=== PATIENT | female | born 1950 | race Caucasian/White ===

== ENCOUNTER 2017-01-25 06:45 | Emergency (ER) | payer BC ==
[~2017-01-25] VITALS: Ht 157.5 cm; Wt 74.4 kg
[~2017-01-25 06:45] MED LIST: /ADVA50050 INH; /RISE35TA PO; AMIT25TA2 PO; CLAR5CHW PO; CLIN150C OR; DELTASONE PO; FLEXERIL PO; LASI40TA PO; MICA80TA PO; NORCO PO; NOVOLOG100 MG/ML SQ; PRED1TA PO; PRIL20CA OR; SING10TA31 PO; SLOWTAB OR; VICO5TAB PO; VITAMIN D50000 UNT PO; cellcept PO; levemir SQ; potassium PO
[2017-01-25] MEDS ORDERED: LISI10TA4 PO (07:15)
[2017-01-25] MEDS ORDERED: POTA10CA PO (07:15)
[2017-01-25] MEDS ORDERED: INSUDET SC (07:15)
[2017-01-25] MEDS ORDERED: CELL500T PO (07:15)
[2017-01-25] MEDS ORDERED: diphenhydrAMINE INJ 50MG/ML VIAL (J1200) IV ONE (08:00)
[2017-01-25 08:36] VITALS: BP 135/61
== END 2017-01-25 10:40 | disposition home or self-care (01) ==
LOC: M ED 08:01
DX: T78.3XXA Angioneurotic edema, initial encounter (principal)
CPT/HCPCS: 93041; 96374; 99284; J1200

== ENCOUNTER → 2017-02-17 | Outpatient (CLI) | payer BC ==
[~2017-02-17] MED LIST changes: +CELL500T PO; +INSUDET SC; +LISI10TA4 PO; +POTA10CA PO
--- NOTE | 2017-02-17 18:40 | REP ---
CHEST, TWO VIEWS: Two views of the chest are performed and compared to prior study of 11/04/2013. There is interstitial fibrosis bilaterally which appears essentially stable. No definite superimposed acute infiltrate is seen. The heart is normal in size. There is some calcification of the thoracic aorta. The mediastinal silhouette is unchanged. Metallic prosthesis is noted in the proximal humerus bilaterally. There are mild degenerative changes of the spine. IMPRESSION: Chronic fibrotic change without evidence of acute infiltrate. Signed by Dennis Cantu MD 02/17/2017 07:17 P
== END ==
LOC: M WUC 17:49
PROVIDERS: ATTEND Physician Assistant
DX: R50.9 Fever, unspecified (principal); J44.9 Chronic obstructive pulmonary disease, unspecified

== ENCOUNTER 2017-04-29 01:33 | Emergency (ER) | payer BC ==
[~2017-04-29] VITALS: Ht 157.5 cm; Wt 68.2 kg
[2017-04-29 01:51] VITALS: BP 134/60
[2017-04-29] MEDS ORDERED: NORCO, ANEXSIA 5/325MG TABLET (HYDROcodone/ACETAMINOPHEN) PO ONE ×2 (02:15→04:00)
--- NOTE | 2017-04-29 08:56 | REP ---
LUMBAR SPINE, THREE VIEWS: HISTORY: Trauma. There is no acute fracture or subluxation. The lumbar intervertebral discs are decreased in height consistent with disc degeneration. Osteophytes are present on L3-5. There is minimal scoliosis convex to the left. Calcifications are present in the right upper quadrant. This may represent cholelithiasis. IMPRESSION: Degenerative change as described above. Signed by Zachary Villegas MD 04/29/2017 09:30 A
--- NOTE | 2017-04-29 08:57 | REP ---
LEFT ELBOW, FOUR VIEWS: HISTORY: Trauma. There is no acute fracture or dislocation. There is narrowing of the joint space. Osteophytes are present on the ulna and distal humerus. IMPRESSION: There is no acute fracture or dislocation. Signed by Zachary Villegas MD 04/29/2017 09:31 A
== END 2017-04-29 04:47 | disposition home or self-care (01) ==
LOC: EDBD 01:33 → M ED 01:33
DX: S00.93XA Contusion of unspecified part of head, initial encounter (principal); S50.02XA Contusion of left elbow, initial encounter; S39.012A Strain of muscle, fascia and tendon of lower back, initial encounter; Z87.891 Personal history of nicotine dependence; W01.198A Fall on same level from slipping, tripping and stumbling with subsequent striking against other object, initial encounter; Y92.099 Unspecified place in other non-institutional residence as the place of occurrence of the external cause; Y93.01 Activity, walking, marching and hiking; Y99.9 Unspecified external cause status

== ENCOUNTER 2017-06-01 22:19 | Inpatient (IN) | payer BC ==
[~2017-06-01] VITALS: Ht 157.5 cm; Wt 67.9 kg
[2017-06-01] MEDS: AZITHROMYCIN INJ 500 MG, VIAL MATE ADAPTER 1 EACH in D5W 250 ML IV ONE ×2 (00:15→23:15)
[~2017-06-01 22:19] MED LIST changes: +MYCOPHENOLATE MOFETIL 250 MG CAP (J7517) PO SCH
[2017-06-01] MEDS ORDERED: NS 1,000 ML IV ONE (22:45)
[2017-06-01] MEDS ORDERED: ACETAMINOPHEN 325 MG TAB PO ONE (23:00)
[2017-06-01 23:02] LABS: BASO % 0.1 % (0.0-1.0); EOS # 0.1 K/mm3 (0.0-0.50); EOS % 0.3 % (0.0-3.0); LARGE UNSTAINED CELL # 0.1 K/mm3 (0.0-0.4); LARGE UNSTAINED CELL % 0.3 % (0.0-4.0); LYMPH # 0.3 K/mm3 (1.5-4.5); LYMPH % 1.5 % (24.0-44.0); MEAN CORPUSCULAR HEMOGLOBIN 23.1 pg (27.0-33.0); MEAN CORPUSCULAR HGB CONC 29.5 g/dl (32.0-36.5); MEAN CORPUSCULAR VOLUME 78.3 fl (80.0-96.0); MONO # 0.3 K/mm3 (0.0-0.8); MONO % 1.7 % (0.0-5.0); NEUTROPHILS # 18.7 K/mm3 (1.8-7.7); NEUTROPHILS % 96.1 % (36.0-66.0); PLATELET COUNT, AUTOMATED 481 k/mm3 (150-450); RED CELL DISTRIBUTION WIDTH 15.8 % (11.5-14.5); WHITE BLOOD COUNT 19.4 K/mm3 (4.0-10.0)
[2017-06-01] MEDS ORDERED: cefTRIAXone SOD 1 GM in D5W MINI-BAG PLUS 50 ML IV ONE (23:15)
[2017-06-01] MEDS ORDERED: IPRATROPIUM 0.5MG/ALBUTEROL 2.5MG INH SOL UD 3ML (DUONEB)(J7620) NEB ONE (23:30)
[2017-06-01 23:35] LABS: ALBUMIN 2.5 GM/DL (3.2-5.2); ALBUMIN/GLOBULIN RATIO 0.61 (1.00-1.93); ALKALINE PHOSPHATASE 184 U/L (45-117); ALT/SGPT 13 U/L (12-78); ANION GAP 9 MEQ/L (8-16); AST/SGOT 16 U/L (15-37); BILIRUBIN,DIRECT 0.2 MG/DL (0.0-0.2); BILIRUBIN,TOTAL 0.4 MG/DL (0.2-1.0); BLOOD UREA NITROGEN 10 MG/DL (7-18); CALCIUM LEVEL 8.3 MG/DL (8.8-10.2); CARBON DIOXIDE LEVEL 27 MEQ/L (21-32); CHLORIDE LEVEL 96 MEQ/L (98-107); CREATININE FOR GFR 0.55 MG/DL (0.55-1.02); GLOMERULAR FILTRATION RATE > 60.0 (>45); GLUCOSE, FASTING 271 MG/DL (80-110); POTASSIUM SERUM 4.7 MEQ/L (3.5-5.1); SODIUM LEVEL 132 MEQ/L (136-145); TOTAL PROTEIN 6.6 GM/DL (6.4-8.2)
[2017-06-02] MEDS ORDERED: NORC1TAB4 PO (00:11)
[2017-06-02] MEDS ORDERED: MAGN250T9 PO (00:11)
[2017-06-02] MEDS ORDERED: INSUH10VL SC ×2 (00:11)
[2017-06-02] MEDS ORDERED: ALBU17IN INH (00:11)
[2017-06-02] MEDS ORDERED: VITA-110 PO (00:11)
[2017-06-02] MEDS ORDERED: CYCL10TA PO (00:11)
[2017-06-02] MEDS ORDERED: FURO40TA2 PO (00:11)
[2017-06-02] MEDS ORDERED: AMIT10TA PO (00:11)
--- NOTE | 2017-06-02 00:30 | REPUSA ---
CLINICAL HISTORY: Confusion. TECHNIQUE: Multiple axial brain CT scan sections were obtained from base to vertex without contrast a dministration. COMMENTS: The study shows normal configuration of sella turcica. There are no intra or extra-axial collections. There is no mass effect or midline shift. There is no evidence of hematoma formation. No hydrocephal us is present. No abnormal calcifications are noted. No significant abnormalities are seen either in the posterior fossa or supratentorial compartment. The sinuses and mastoid air cells are patent. IMPRESSION: No change from the prior exam performed on 04/29/2017. No evidence of acute intracranial pathology. Thank you for your kind referral of this patient.
[2017-06-02] MEDS ORDERED: GLUCAGON FOR INJ 1 MG VIAL (J1610) SC PRN (01:30)
[2017-06-02] MEDS ORDERED: DEXTROSE 50% 50 ML SYRINGE IV PRN (01:30)
[2017-06-02] MEDS ORDERED: GLUCOSE 4 GM CHEW TABLET PO PRN (01:30)
[2017-06-02] MEDS ORDERED: ACETAMINOPHEN TAB 650MG DOSE (2X325MG) PO PRN (01:30)
[2017-06-02] MEDS ORDERED: ALBUTEROL SULFATE 2.5 MG/0.5 ML INH NEB SOLN NEB PRN (01:30)
[2017-06-02] MEDS ORDERED: PERCOCET 5MG/325MG TAB PO PRN (01:30)
[2017-06-02] MEDS ORDERED: ONDANSETRON 4MG/2ML VIAL (J2405) IV PRN (01:30)
[2017-06-02] MEDS ORDERED: ISOVUE-370 76% 100ML VIAL (Q9967) As Ordered ONE (01:48)
[2017-06-02 01:53] LABS: ERYTHROCYTE SEDIMENTATION RATE 90 mm/hr (0-30)
--- NOTE | 2017-06-02 01:59 | PHACANCOPD ---
PHARMACY VANCOMYCIN DOSING Pt Demographics Demographics Patient Age:67 , Weight:67.000 , Gender: female Adjusted Body Weight Date: 06/02/17, Adjusted Body Weight: Kg Events Past 24 Hours Events Past 24 Hours: NO: Dialysis, Diuretic Therapy, Change in CrCl, Fever, Elevation in WBC, Pending Diagnostics, Pending Procedures, Other Vancomycin Vancomycin Target Ranges: 15-20 mcg/ml Vancomycin Load Y/N: Yes Load Dose Date Time Vancomycin Load Dose: 1500MG Date: 06-02 Time: 0300 Vancomycin Dose Date: 06/02/17. Current Vancomycin Dose: [1000MG Q8H] Intermittent Dosing?: No Labs Labs Item Value Date Time White Blood Count 19.4 K/mm3 H 06/01/172246 Creatinine 0.55 MG/DL 06/01/172246 Blood Urea Nitrogen 10 MG/DL 06/01/172246 Vital Signs Label Value Date Time Patient Temperature 100.3 degrees F 06/02/17 0004 Temperature Source Oral 06/02/17 0004 Micro Microbiology 06/01/17 Blood Culture, Received Pending 06/01/17 Blood Culture, Received Pending 06/01/17 Urine Culture, Received Pending Creatinine Clearance Date:06/02/17. Creatinine Clearance: [70]. Pending Labs Trough 06-02 @1900 Assessment and Plan Maintaining Current Dose?: Yes Reason for dose change: No Dose Change Pharmacist Note Pharmacist Note Date: 06/02/17. Pharmacist note:Dosed at 1000mg q8h with a trough ordered for 09 @1900. Will continue to monitor and amke adjustments as needed. RUBÉN [facility] Jun 02, 2017 01:59
[2017-06-02] MEDS ORDERED: VANCOMYCIN HCL 500 MG in D5W MINI-BAG PLUS 100 ML IV ONE (02:00)
[2017-06-02] MEDS: NS 1,000 ML IV SCH ×2 (02:30→16:23)
[2017-06-02] MEDS: HumaLOG INSULIN (NovoLOG) PER UNIT SC SCH ×5 (02:31→21:00)
[2017-06-02] MEDS: LEVEMIR (INSULIN DETEMIR) 1 UNITS/0.01ML SC SCH ×2 (02:31→21:00)
--- NOTE | 2017-06-02 02:40 | REPUSA ---
CLINICAL HISTORY: Fever. TECHNIQUE: Multiple axial CT images were obtained through the thorax with IV contrast material. COMMENTS: Bilateral pleural thickening and minimal effusions. Moderately enlarged axillary lymph nodes with the largest measuring 1.4 cm. Moderately large mediastinal and hilar lymph nodes the largest measuring 3.5 cm. Calcifications of the metallic valve. There is bilateral peribronchial interstitial thickening suggestive of bronchitis. Groundglass densities of the lingula. Mild hepatomegaly. Mild prostatomegaly. There is no evidence of pleural or parenchymal mass. The heart and great vessels are within normal limits. The bony structures are free of lytic or blastic lesions. IMPRESSION: Minimal pleural effusion/thickening. Basilar calcified pleural plaques. Bronchitis. Comment densities in the lingula. Findings are suspicious for an infectious/inflammatory pathology. Diffusely enlarged axillary, mediastinal and hilar lymph nodes. Thank you for your kind referral of this patient.
--- NOTE | 2017-06-02 02:40 | REPUSA ---
CLINICAL HISTORY: Back pain. TECHNIQUE: Multiple axial images were obtained through the L1-L2, L2-L3, L3-L4, L4-L5 and L5-S1 inter spaces. Images were also reconstructed in coronal and sagittal planes. COMMENTS: There is no fracture visualized. The paraspinal soft tissues are unremarkable. There are no lytic or blastic lesions. Straightening of lumbar lordosis is seen, suggesting muscular spasm. There is evidence of multilevel disk disease, demonstrated by osteophytosis ad endplate sclerosis. Evaluation of individual levels reveals the following: At L5-S1, L3-L4, L2-L3, L1-L2 mild diffuse disc bulge. The spinal canal is not narrowed. Mild bilater al neural foramina narrowing. At L4-L5, moderate diffuse disc bulge and posterior osteophyte formation. Facet joint arthropathy and ligamenta flava hypertrophy. Moderate concentric narrowing of the spinal canal. Moderate bilateral n eural foramina narrowing. Mild chronic compression deformities of L2 and L1 superior endplates. IMPRESSION: Spondylosis. Chronic compression deformities of the superior endplates involving L1 and L2. Multilevel degenerative disc disease and Thank you for your kind referral of this patient.
[2017-06-02] MEDS: AMITRIPTYLINE 10 MG TAB PO SCH ×2 (02:51→21:10)
--- NOTE | 2017-06-02 03:12 | HPE ---
DATE OF ADMISSION: 06/02/2017 PRIMARY CARE PROVIDER: Adelina Martin. HISTORY OF PRESENT ILLNESS: This patient is a 67-year-old female with a past medical history significant for rheumatoid arthritis, insulin-dependent diabetes , chronic obstructive pulmonary disease (COPD), gastroesophageal reflux disease (GERD), osteoporosis, who presented to [facility] on 06/01/2017 after an episode of altered mental status changes. Yesterday around 9 p.m. patient's daughter found the patient jail off the bed and patient noted to have urinary incontinence. Patient was noted to have slurred speech with confusion. Patient's gait was also very unsteady. Patient's confusion resolved within 20 minutes. Then patient was brought to [facility] by ambulance and per the family member patient also noted to have uncontrolled extremity shakings and facial twitching, which also resolved spontaneously in a few minutes. Other significant history includes fever and shivering chills for the past 4 days, increased cough, increased yellowish sputum production. Per patient, the confusion occurred before and on 05/29 patient's daughter found the patient lying on the floor with mental status change. Patient's mentation started to recover in 30 minutes. Patient has a history of fall on 04/28/2017. Since then patient has been complaining about persistent pain in the lumbar region. Patient has a history of significant rheumatoid arthritis of her bilateral fingers and left toe and bilateral knees and bilateral hips and had a surgical repair due to severe rheumatoid arthritis. Patient has been taking CellCept. ALLERGIES: 1. SULFA (hives). 2. ASPIRIN (hives). 3. PENICILLIN (hives). 4. NONSTEROIDAL ANTIINFLAMMATORY DRUGS (NSAIDS) (hives). PAST MEDICAL HISTORY: 1. Rheumatoid arthritis. 2. COPD. 3. Osteoporosis. 4. Diabetes. 5. Gastroesophageal reflux disease. PAST SURGICAL HISTORY: 1. Finger replacement of all fingers. 2. Left foot reconstructions. 3. Bilateral shoulder replacements. 4. Bilateral hip replacements. 5. Bilateral knee replacements. 6. Carpal tunnel repair. 7. Tubal ligation. SOCIAL HISTORY: Patient does not smoke, but patient exposed to secondhand smoking for several decades. Denied alcohol use. Denied any recreational drug use. Patient is FULL CODE. HOME MEDICATIONS: - [place] one tablet by mouth three times a day as needed - Ventolin two puff inhalation every 4 hours as needed - NovoLog per sliding scale - Levemir 78 units subcutaneously nightly - magnesium oxide 250 mg by mouth daily - amitriptyline 10 mg by mouth nightly - vitamin D 400 units by mouth daily - cyclobenzaprine 10 mg by mouth three times a day as needed for muscle spasms - Lasix 40 mg by mouth daily - CellCept 1000 mg by mouth twice a day - potassium chloride 10 mEq by mouth daily REVIEW OF SYSTEMS: GENERAL: Positive fever and chills for the past 4 days. HEENT: Denies any vision changes. No auditory changes. CARDIOVASCULAR: No chest pain. No palpitations. RESPIRATORY: Complained about increased cough with yellow sputum, which is not normal for her. Patient does have a baseline of COPD. GASTROINTESTINAL: No nausea. No vomiting. No abdominal pain. No diarrhea. GENITOURINARY: Patient had an episode of urinary incontinence and was found at home with confusion. NEUROLOGICAL: No numbness. No tingling. MUSCULOSKELETAL: Persistent lumbar spine pain occurring after the fall since 04/28/2017. RHEUMATOLOGIC: Patient has a history of severe rheumatoid arthritis. Multiple surgical repairs were performed. The patient had all her finger digits, left foot, bilateral shoulders, bilateral hips, bilateral knees replacement. OBJECTIVE: VITAL SIGNS: Temperature 100.3, pulse 108, respirations 20, blood pressure 126/54, pulse oximetry is 97% in room air. GENERAL: Fatigued. Alert, awake and oriented times three. No acute distress. HEENT: Normocephalic, atraumatic. Extraocular motor grossly intact. CARDIOVASCULAR: Tachycardic, positive S1, S2. LUNGS: Positive crackles heard at the bilateral lung bases, but I cannot appreciate any significant wheezes. ABDOMEN: Soft, nontender, nondistended, bowel sounds present. EXTREMITIES: No edema. No sign of cyanosis. Patient does have shortened digits of the bilateral hands. There is also a surgical scar of the knee and the left foot. LABORATORY DATA: WBC 19.4, hemoglobin 9.1, hematocrit 30.7, platelet count is 481. Sodium is 132, potassium 4.7, chloride 96, carbon dioxide is 27, BUN 10, creatinine 0.55, GFR greater than 60, fasting glucose 271, lactic acid is 1.1, calcium 8.3, total bilirubin 0.4, direct bilirubin 0.2, AST 16, ALT 13, alkaline phosphatase 184, total protein 6.6, albumin 2.5. TSH is 1.06. Urinalysis is negative. Blood culture is pending times two. Urine culture is pending. IMAGING STUDIES: CT of the head without contrast shows no changes from previous exam. No evidence of acute intracranial pathology. ASSESSMENT AND PLAN: 1. Sepsis. Patient has a fever and patient has a heart rate greater than 100. Patient also has a white count of 19. Patient also has altered mental status change. Patient will be started on broad spectrum antibiotic of vancomycin and cefepime. Patient does have a drug allergy to penicillin and sulfa and quinolone. Patient will be started on intravenous (IV) hydration. At this moment, patient's blood pressure maintained in the satisfactory range. Urinalysis (UA) is negative. Follow with blood cultures, urine cultures. Will also follow with a CT of the chest. Patient has been taking CellCept, which may cause immunosuppression for the patient. 2. Rheumatoid arthritis. Patient has undergone multiple bone reconstructions and repair. Per the patient, patient is not tolerable to nonsteroidal antiinflammatory drugs (NSAIDs). Patient is on CellCept. Due to current sepsis , CellCept will be on hold temporarily. 3. Altered mental status change. Possibly due to patient's current sepsis. Will also follow with an EKG. CT of the head is negative. 4. Insulin-dependent diabetes. Patient will be on Levemir covering with sliding scale. Patient will be on consistent carbohydrate diet. 5. History of osteoporosis. 6. Chronic obstructive pulmonary disease (COPD). Currently does not have an exacerbation. Patient will have a breathing treatment as needed. 7. Gastroesophageal reflux disease. On Protonix. 8. Deep venous thrombosis (DVT) prophylaxis. The patient is on heparin. MTDD
[2017-06-02 03:42] VITALS: BP 121/56
[2017-06-02] MEDS: VANCOMYCIN HCL 1,000 MG, VIAL MATE ADAPTER 1 EACH in D5W 250 ML IV SCH ×3 (03:59→21:10)
[2017-06-02] MEDS: CEFEPIME HCL 1 GM in D5W MINI-BAG PLUS 50 ML IV SCH ×2 (05:00→16:22)
[2017-06-02] MEDS: HEPARIN SOD (PORCINE) 5000 UNITS/ML VIAL SC SCH ×3 (05:00→21:10)
--- NOTE | 2017-06-02 07:45 | ECGEPIP ---
Stationary ECG Study [facility] - ED Test Date: 2017-06-01 Pat Name: CYRIL PATRICK Department: Room: [place] [address] Gender: F Spool Carrier: leela : 1950 Requested By: TANISHA STONE Order Number: [id number] Reading MD: Whit Lema Measurements Intervals [place] Rate: 113 P: 34 IA: 163 QRS: -8 QRSD: 88 T: 66 QT: 299 QTc: 410 Interpretive Statements SINUS TACHYCARDIA MINIMAL VOLTAGE CRITERIA FOR LVH, CONSIDER NORMAL VARIANT NONSPECIFIC T-WAVE ABNORMALITY ABNORMAL RHYTHM ECG NO PRIOR FOR COMPARIOSN Electronically Signed On 06-02-2017 7:44:51 EDT by Whit Lema
--- NOTE | 2017-06-02 07:58 | REP ---
Clinical: S I R S. Comparison: 02/17/2017. Findings: Mediastinum and cardiac silhouette are within normal limits. Prominent appearance of the bilateral raegan cannot exclude underlying adenopathy. Lung mitchell demonstrate chronic interstitial changes without focal consolidation, effusion, or pneumothorax. Skeletal structures are intact. Impression: Chronic interstitial changes. Cannot exclude hilar adenopathy. Signed by Joseph Ibarra MD 06/02/2017 07:49 A
[2017-06-02 08:00] VITALS: BP 125/60
[2017-06-02 08:10] LABS: BASO % 0.1 % (0.0-1.0); LARGE UNSTAINED CELL # 0.1 K/mm3 (0.0-0.4); LARGE UNSTAINED CELL % 0.7 % (0.0-4.0); LYMPH # 0.7 K/mm3 (1.5-4.5); LYMPH % 5.6 % (24.0-44.0); MEAN CORPUSCULAR HEMOGLOBIN 23.8 pg (27.0-33.0); MEAN CORPUSCULAR HGB CONC 31.1 g/dl (32.0-36.5); MEAN CORPUSCULAR VOLUME 76.6 fl (80.0-96.0); MONO # 0.2 K/mm3 (0.0-0.8); MONO % 1.9 % (0.0-5.0); NEUTROPHILS # 11.1 K/mm3 (1.8-7.7); NEUTROPHILS % 91.6 % (36.0-66.0); PLATELET COUNT, AUTOMATED 438 k/mm3 (150-450); RED CELL DISTRIBUTION WIDTH 15.8 % (11.5-14.5); WHITE BLOOD COUNT 12.1 K/mm3 (4.0-10.0)
[2017-06-02 08:26] LABS: ALBUMIN/GLOBULIN RATIO 0.48 (1.00-1.93); ALKALINE PHOSPHATASE 147 U/L (45-117); ALT/SGPT 11 U/L (12-78); ANION GAP 8 MEQ/L (8-16); AST/SGOT 13 U/L (15-37); BILIRUBIN,TOTAL 0.2 MG/DL (0.2-1.0); BLOOD UREA NITROGEN 7 MG/DL (7-18); CARBON DIOXIDE LEVEL 25 MEQ/L (21-32); CHLORIDE LEVEL 103 MEQ/L (98-107); CREATININE FOR GFR 0.38 MG/DL (0.55-1.02); GLOMERULAR FILTRATION RATE > 60.0 (>45); GLUCOSE, FASTING 285 MG/DL (80-110); MAGNESIUM LEVEL 2.1 MG/DL (1.8-2.4); POTASSIUM SERUM 3.8 MEQ/L (3.5-5.1); SODIUM LEVEL 136 MEQ/L (136-145); TOTAL PROTEIN 6.2 GM/DL (6.4-8.2)
[2017-06-02] MEDS: POTASSIUM CHLORIDE 10 MEQ SR TABLET PO SCH (08:59)
[2017-06-02] MEDS: PANTOPRAZOLE 40MG TAB (PROTONIX) PO SCH (08:59)
[2017-06-02] MEDS: VITAMIN D (CHOLECALCIFEROL) 400 INTERNATIONAL UNITS TAB PO SCH (09:00)
[2017-06-02] MEDS ORDERED: FUROSEMIDE 40 MG TAB PO SCH (09:00)
[2017-06-02 12:00] VITALS: BP 129/59
[2017-06-02 15:18] VITALS: BP 154/68
--- NOTE | 2017-06-02 15:23 | IPNPDOC ---
Text Note Date of Service The patient was seen on 06/02/17. NOTE Hospitalist Progress Note The patient was admitted early this morning by my colleague Dr. Engle. She was seen and examined by me today. 67-year-old female with rheumatoid arthritis status post multiple joint replacements, diabetes mellitus type 2, COPD, GERD, osteoporosis who presents to the emergency department because she had an episode of decreased mental status with slurred speech. She has been found to have pneumonia and is admitted with sepsis secondary to this pneumonia. 1. Sepsis: This is secondary to the pneumonia seen on the CT of her chest. She is currently febrile and tachycardic. Her mental status changes have resolved at this point. Continue to treat underlying infection. Continue IV fluids. We are currently holding her home Lasix 2. Pneumonia in an immunocompromised patient: The patient was febrile upon arrival with a white count of 19.4. She has been started on vancomycin and cefepime given that she has been taking CellCept for her rheumatoid arthritis. Her white count has now improved to 12.1. Blood and urine cultures are pending. We will also attempt to collect a sputum culture. Respiratory virus panel was unremarkable. CT chest does show diffusely enlarged lymph nodes. She'll need follow-up with her primary physicians after adequate treatment for her pneumonia to ensure that these resolve and are simply related to the infection. 3. Rheumatoid arthritis: Hold home CellCept while being treated for active infection. 4. Diabetes mellitus type 2: Continue home Levemir. Sliding scale insulin while in-house. 5. COPD: Currently appears stable. Continue as needed nebulizers. 6. GERD: Continue home PPI. 7. Change in mental status: The family reports that the patient was confused, had slurred speech, urinary incontinence, as well as some shaking and flapping of her hands. They state that this is not the first time this has happened in the last couple days. The patient states that she does not necessarily remember all of this time and feels like she has "lost time." Secondary to the patient's multiple joint prostheses, she is unable to undergo MRI. Upon her physical exam , she has no focal deficits and all of the symptoms seem to have entirely resolved. I think it is unlikely that she has had an acute stroke, but the differential would include TIA versus seizure versus metabolic encephalopathy secondary to her pneumonia. We will check an EEG as well as a lipid panel and attempt to minimize any risk factors for future stroke by controlling her blood pressure and cholesterol. The patient states she is allergic to aspirin and cannot take that. DVT prophylaxis: Heparin Dispo: pending improvement in her pneumonia, as well as workup for her change in mental status VSBowen, I+O VS, Bowen, I+O Laboratory Tests 06/01/17 22:47 Red Blood Count 3.92 L, Mean Corpuscular Volume 78.3 L, Mean Corpuscular Hemoglobin 23.1 L, Mean Corpuscular Hemoglobin Concent 29.5 L, Red Cell Distribution Width 15.8 H, Neutrophils (%) (Auto) 96.1 H, Lymphocytes (%) (Auto ) 1.5 L, Monocytes (%) (Auto) 1.7, Eosinophils (%) (Auto) 0.3, Basophils (%) ( Auto) 0.1, Neutrophils # (Auto) 18.7 H, Lymphocytes # (Auto) 0.3 L, Monocytes # (Auto) 0.3, Eosinophils # (Auto) 0.1, Basophils # (Auto) 0.0 06/02/17 07:44 Red Blood Count 3.35 L, Mean Corpuscular Volume 76.6 L, Mean Corpuscular Hemoglobin 23.8 L, Mean Corpuscular Hemoglobin Concent 31.1 L, Red Cell Distribution Width 15.8 H, Neutrophils (%) (Auto) 91.6 H, Lymphocytes (%) (Auto ) 5.6 L, Monocytes (%) (Auto) 1.9, Eosinophils (%) (Auto) 0.0, Basophils (%) ( Auto) 0.1, Neutrophils # (Auto) 11.1 H, Lymphocytes # (Auto) 0.7 L, Monocytes # (Auto) 0.2, Eosinophils # (Auto) 0.0, Basophils # (Auto) 0.0, Calcium Level 8.0 L, Aspartate Amino Transf (AST/SGOT) 13 L, Alanine Aminotransferase (ALT/SGPT) 11 L, Alkaline Phosphatase 147 H, Total Bilirubin 0.2, Total Protein 6.2 L, Albumin 2.0 L Vital Signs Date Time Temp Pulse Resp B/P (MAP) Pulse Ox O2 Delivery O2 Flow Rate FiO2 06/02/17 15:18 97.6 94 18 154/68 (96) 98 Room Air I&O- Last 24 Hours up to 6 AM 06/02/17 06:00 Intake Total 1815 ml Output Total 750 ml Balance 1065 ml NE BARAJAS Jun 02, 2017 15:23
[2017-06-02 20:00] VITALS: BP 132/60
[2017-06-02 23:59] VITALS: BP 145/67
[2017-06-03] MEDS: NS 1,000 ML IV SCH
[2017-06-03 04:00] VITALS: BP 164/69
[2017-06-03] MEDS: VANCOMYCIN HCL 1,000 MG, VIAL MATE ADAPTER 1 EACH in D5W 250 ML IV SCH ×3 (04:31→21:39)
[2017-06-03 05:29] LABS: ALBUMIN/GLOBULIN RATIO 0.45 (1.00-1.93); ALKALINE PHOSPHATASE 131 U/L (45-117); ALT/SGPT 11 U/L (12-78); ANION GAP 9 MEQ/L (8-16); AST/SGOT 15 U/L (15-37); BILIRUBIN,TOTAL 0.2 MG/DL (0.2-1.0); BLOOD UREA NITROGEN 6 MG/DL (7-18); CALCIUM LEVEL 8.5 MG/DL (8.8-10.2); CARBON DIOXIDE LEVEL 27 MEQ/L (21-32); CHLORIDE LEVEL 101 MEQ/L (98-107); CHOLESTEROL LEVEL 95 MG/DL (<200); GLOMERULAR FILTRATION RATE > 60.0 (>45); GLUCOSE, FASTING 108 MG/DL (80-110); MAGNESIUM LEVEL 1.8 MG/DL (1.8-2.4); POTASSIUM SERUM 3.7 MEQ/L (3.5-5.1); SODIUM LEVEL 137 MEQ/L (136-145); TOTAL PROTEIN 6.4 GM/DL (6.4-8.2); TRIGLYCERIDES LEVEL 139 MG/DL (<150)
[2017-06-03 05:31] LABS: BASO % 0.2 % (0.0-1.0); EOS % 0.2 % (0.0-3.0); LARGE UNSTAINED CELL # 0.1 K/mm3 (0.0-0.4); LARGE UNSTAINED CELL % 0.5 % (0.0-4.0); LYMPH # 0.6 K/mm3 (1.5-4.5); LYMPH % 4.4 % (24.0-44.0); MEAN CORPUSCULAR HEMOGLOBIN 22.9 pg (27.0-33.0); MEAN CORPUSCULAR HGB CONC 28.8 g/dl (32.0-36.5); MEAN CORPUSCULAR VOLUME 79.5 fl (80.0-96.0); MONO # 0.3 K/mm3 (0.0-0.8); MONO % 2.2 % (0.0-5.0); NEUTROPHILS # 10.5 K/mm3 (1.8-7.7); NEUTROPHILS % 92.6 % (36.0-66.0); PLATELET COUNT, AUTOMATED 384 k/mm3 (150-450); RED CELL DISTRIBUTION WIDTH 15.9 % (11.5-14.5); WHITE BLOOD COUNT 11.4 K/mm3 (4.0-10.0)
[2017-06-03] MEDS: HEPARIN SOD (PORCINE) 5000 UNITS/ML VIAL SC SCH ×3 (06:11→21:38)
[2017-06-03] MEDS: CEFEPIME HCL 1 GM in D5W MINI-BAG PLUS 50 ML IV SCH ×2 (06:11→17:51)
[2017-06-03] MEDS: HumaLOG INSULIN (NovoLOG) PER UNIT SC SCH ×4 (07:30→21:00)
[2017-06-03] MEDS: VITAMIN D (CHOLECALCIFEROL) 400 INTERNATIONAL UNITS TAB PO SCH (07:47)
[2017-06-03] MEDS: PANTOPRAZOLE 40MG TAB (PROTONIX) PO SCH (07:47)
[2017-06-03] MEDS: POTASSIUM CHLORIDE 10 MEQ SR TABLET PO SCH (07:48)
[2017-06-03 08:00] VITALS: BP 151/68
[2017-06-03 12:00] VITALS: BP 164/78
[2017-06-03] MEDS: D5W/0.45% SODIUM CHLORIDE 1,000 ML IV SCH (13:33)
[2017-06-03 16:00] VITALS: BP 135/75
--- NOTE | 2017-06-03 16:41 | IPNPDOC ---
Date Seen The patient was seen on 06/03/17. Progress Note Hospitalist Progress Note Subjective: Patient states that she feels much better and has no complaints Objective: Physical Exam: Vitals: Vital Sign - Last 24 Hours 06/02/17 06/02/17 06/02/17 06/03/17 20:00 20:00 23:59 04:00 Temp 99.3 96.0 96.3 Pulse 92 87 82 Resp 20 18 20 B/P (MAP) 132/60 (84) 145/67 (93) 164/69 (100) Pulse Ox 95 97 97 O2 Delivery Room Air Room Air Room Air Room Air 06/03/17 06/03/17 06/03/17 08:00 08:00 12:00 Temp 97.8 98.4 Pulse 95 89 Resp 20 20 B/P (MAP) 151/68 (95) 164/78 (106) Pulse Ox 98 98 O2 Delivery Room Air Room Air Room Air General: Awake, Alert, no acute distress HEENT: Normo cephalic, atraumatic, moist mucous membranes CV: Regular rate and rhythm Lungs: Clear to auscultation bilaterally Abd: Soft, nontender, nondistended Extremities: No edema Neuro: Alert and oriented 3, normal speech, no focal deficits, exam is slightly limited by her severe rheumatoid arthritis, however, finger to nose appears to be as intact as her joints will allow her to complete, and her limited arm drift exam again appears to be as normal as her joints will allow her to complete; no facial droop Psych: Normal mood and affect Labs and Imaging: Laboratory Tests 06/03/17 04:40 Calcium Level 8.5 L, Aspartate Amino Transf (AST/SGOT) 15, Alanine Aminotransferase (ALT/SGPT) 11 L, Alkaline Phosphatase 131 H, Total Bilirubin 0.2, Triglycerides Level 139, LDL Cholesterol 38.2, Total Protein 6.4, Albumin 2.0 L 06/03/17 04:41 Red Blood Count 3.47 L, Mean Corpuscular Volume 79.5 L, Mean Corpuscular Hemoglobin 22.9 L, Mean Corpuscular Hemoglobin Concent 28.8 L, Red Cell Distribution Width 15.9 H, Neutrophils (%) (Auto) 92.6 H, Lymphocytes (%) (Auto ) 4.4 L, Monocytes (%) (Auto) 2.2, Eosinophils (%) (Auto) 0.2, Basophils (%) ( Auto) 0.2, Neutrophils # (Auto) 10.5 H, Lymphocytes # (Auto) 0.6 L, Monocytes # (Auto) 0.3, Eosinophils # (Auto) 0.0, Basophils # (Auto) 0.0 Assessment and Plan: 67-year-old female with rheumatoid arthritis status post multiple joint replacements, diabetes mellitus type 2, COPD, GERD, osteoporosis who presents to the emergency department because she had an episode of decreased mental status with slurred speech. She has been found to have pneumonia and is admitted with sepsis secondary to this pneumonia. 1. Sepsis: This is secondary to the pneumonia seen on the CT of her chest. She is currently afebrile. Her mental status changes have resolved at this point. Continue to treat underlying infection. Continue IV fluids. We are currently holding her home Lasix 2. Pneumonia in an immunocompromised patient: The patient was febrile upon arrival with a white count of 19.4. She has been started on vancomycin and cefepime given that she has been taking CellCept for her rheumatoid arthritis. Her white count has now improved to 11.4. Blood and urine cultures are pending. Sputum culture pending. Respiratory virus panel was unremarkable. CT chest does show diffusely enlarged lymph nodes. She'll need follow-up with her primary physicians after adequate treatment for her pneumonia to ensure that these resolve and are simply related to the infection. 3. Rheumatoid arthritis: Hold home CellCept while being treated for active infection. 4. Diabetes mellitus type 2: Patient received home Levemir last night and then had hypoglycemia overnight and today. Started on D5(1/2)NS and will decrease nightly levemir from 75u to 50u. Sliding scale insulin while in-house. 5. COPD: Currently appears stable. Continue as needed nebulizers. 6. GERD: Continue home PPI. 7. Change in mental status: The family reports that the patient was confused, had slurred speech, urinary incontinence, as well as some shaking and flapping of her hands. They state that this is not the first time this has happened in the last couple days. The patient states that she does not necessarily remember all of this time and feels like she has "lost time." Secondary to the patient's multiple joint prostheses, she is unable to undergo MRI. Upon her physical exam , she has no focal deficits and all of the symptoms seem to have entirely resolved. I think it is unlikely that she has had an acute stroke, but the differential would include TIA versus seizure versus metabolic encephalopathy secondary to her pneumonia. EEG pending. To attempt to minimize any risk factors for future stroke, we checked her cholesterol, which is very well controlled. Continue to control her blood pressure. The patient states she is allergic to aspirin and cannot take that. DVT prophylaxis: Heparin Dispo: pending improvement in her pneumonia, as well as workup for her change in mental status, and resolution of hypoglycemia VS[facility] Vital Signs Date Time Temp Pulse Resp B/P (MAP) Pulse Ox O2 Delivery O2 Flow Rate FiO2 06/03/17 12:00 98.4 89 20 164/78 (106) 98 Room Air I&O- Last 24 Hours up to 6 AM 06/03/17 06:00 Intake Total 1220 ml Output Total 925 ml Balance 295 ml Laboratory Data 24H LABS Laboratory Tests 2 06/02/17 17:09: Bedside Glucose (Misc Panel) 120H 06/02/17 19:15: Vancomycin Level Trough 16.6 06/02/17 21:13: Bedside Glucose (Misc Panel) 157H 06/03/17 03:19: Bedside Glucose (Misc Panel) 60L 06/03/17 04:13: Bedside Glucose (Misc Panel) 80 06/03/17 04:40: Anion Gap 9, Glomerular Filtration Rate > 60.0, Blood Urea Nitrogen 6L, Creatinine 0.50L, Sodium Level 137, Potassium Level 3.7, Chloride Level 101, Carbon Dioxide Level 27, Calcium Level 8.5L, Aspartate Amino Transf (AST/SGOT) 15, Alanine Aminotransferase (ALT/SGPT) 11L, Alkaline Phosphatase 131H, Total Bilirubin 0.2, Triglycerides Level 139, LDL Cholesterol 38.2, Total Protein 6.4 , Albumin 2.0L, Magnesium Level 1.8, Albumin/Globulin Ratio 0.45L, Total Cholesterol 95, Non-HDL Cholesterol (LDL + VLDL) 66, Total HDL Cholesterol 29L, Cholesterol/HDL Ratio 3.275 06/03/17 04:41: White Blood Count 11.4H, Red Blood Count 3.47L, Hemoglobin 7.9L, Hematocrit 27.6L, Mean Corpuscular Volume 79.5L, Mean Corpuscular Hemoglobin 22.9L, Mean Corpuscular Hemoglobin Concent 28.8L, Red Cell Distribution Width 15.9H, Platelet Count 384, Neutrophils (%) (Auto) 92.6H, Lymphocytes (%) (Auto) 4.4L, Monocytes (%) (Auto) 2.2, Eosinophils (%) (Auto) 0.2, Basophils (%) (Auto) 0.2, Neutrophils # (Auto) 10.5H, Lymphocytes # (Auto) 0.6L, Monocytes # (Auto) 0.3, Eosinophils # (Auto) 0.0, Basophils # (Auto) 0.0, Large Unclassified Cells % 0.5 , Large Unclassified Cells # 0.1 CBC/BMP Laboratory Tests 06/03/17 04:40 Calcium Level 8.5 L, Aspartate Amino Transf (AST/SGOT) 15, Alanine Aminotransferase (ALT/SGPT) 11 L, Alkaline Phosphatase 131 H, Total Bilirubin 0.2, Triglycerides Level 139, LDL Cholesterol 38.2, Total Protein 6.4, Albumin 2.0 L 06/03/17 04:41 Red Blood Count 3.47 L, Mean Corpuscular Volume 79.5 L, Mean Corpuscular Hemoglobin 22.9 L, Mean Corpuscular Hemoglobin Concent 28.8 L, Red Cell Distribution Width 15.9 H, Neutrophils (%) (Auto) 92.6 H, Lymphocytes (%) (Auto ) 4.4 L, Monocytes (%) (Auto) 2.2, Eosinophils (%) (Auto) 0.2, Basophils (%) ( Auto) 0.2, Neutrophils # (Auto) 10.5 H, Lymphocytes # (Auto) 0.6 L, Monocytes # (Auto) 0.3, Eosinophils # (Auto) 0.0, Basophils # (Auto) 0.0 Microbiology Microbiology 06/01/17 Blood Culture - Preliminary, Resulted No growth after 24 hours . All specim... 06/01/17 Blood Culture - Preliminary, Resulted No growth after 24 hours . All specim... 06/02/17 Respiratory Virus Panel (PCR) (JAMAAL) - Final, Complete 06/01/17 Urine Culture - Final, Complete NE BARAJAS Jun 03, 2017 16:41
--- NOTE | 2017-06-03 18:52 | EEG ---
DATE OF PROCEDURE: 06/02/2017 REFERRING PHYSICIAN: Alicja Denton MD DIAGNOSIS: Altered mental status. HISTORY: The patient is a 67-year-old woman who was admitted at [facility] due to altered mental status and urinary incontinence. This EEG was done to rule out epileptic potential and assess the degree of encephalopathy. She is currently on ceftriaxone, Zithromax, vancomycin, cefepime, amitriptyline, Lasix, Protonix, CellCept etc. TECHNICAL DESCRIPTION: This digital EEG was recorded by 21 scalp, ear and two EKG electrodes and was reviewed in bipolar and referential montages following reformatting in 10-20 international electrode placement system. INTERPRETATION: The patient was noted to be in awake and drowsy states during this EEG. Resting awake background rhythm consisted of well-formed posterior dominant rhythm with anterior/posterior gradient comprising of 9 Hz alpha activity measuring 15 - 40 microvolts in amplitude, which was symmetric and reactive to eye opening. Attenuation of posterior dominant rhythm was seen during transition into drowsiness. Stage I and II sleep were reviewed and was symmetric bilaterally. Hyperventilation could not be performed. Photic stimulation remained unremarkable. EKG revealed normal sinus rhythm. No focal, lateralizing or epileptiform abnormalities were seen. CONCLUSION: This EEG in awake, drowsy states, stage I and II sleep is within normal limits.
[2017-06-03 20:00] VITALS: BP 168/70
[2017-06-03] MEDS ORDERED: LEVEMIR (INSULIN DETEMIR) 1 UNITS/0.01ML SC SCH (21:00)
[2017-06-03] MEDS: LEVEMIR (INSULIN DETEMIR) 1 UNITS/0.01ML SC SCH (21:38)
[2017-06-03] MEDS: AMITRIPTYLINE 10 MG TAB PO SCH (21:39)
[2017-06-04] VITALS: BP 147/64
[2017-06-04 04:00] VITALS: BP 141/66
[2017-06-04] MEDS: D5W/0.45% SODIUM CHLORIDE 1,000 ML IV SCH ×2 (04:01→18:04)
[2017-06-04] MEDS: VANCOMYCIN HCL 1,000 MG, VIAL MATE ADAPTER 1 EACH in D5W 250 ML IV SCH ×2 (04:01→18:03)
[2017-06-04] MEDS: CEFEPIME HCL 1 GM in D5W MINI-BAG PLUS 50 ML IV SCH ×2 (06:11→16:30)
[2017-06-04] MEDS: HEPARIN SOD (PORCINE) 5000 UNITS/ML VIAL SC SCH ×3 (06:12→21:20)
[2017-06-04 06:18] LABS: BASO % 0.2 % (0.0-1.0); EOS # 0.2 K/mm3 (0.0-0.50); EOS % 2.8 % (0.0-3.0); LARGE UNSTAINED CELL % 0.8 % (0.0-4.0); LYMPH # 0.6 K/mm3 (1.5-4.5); LYMPH % 10.3 % (24.0-44.0); MEAN CORPUSCULAR HEMOGLOBIN 23.3 pg (27.0-33.0); MEAN CORPUSCULAR HGB CONC 29.8 g/dl (32.0-36.5); MEAN CORPUSCULAR VOLUME 78.1 fl (80.0-96.0); MONO # 0.1 K/mm3 (0.0-0.8); MONO % 2.1 % (0.0-5.0); NEUTROPHILS # 4.6 K/mm3 (1.8-7.7); NEUTROPHILS % 83.8 % (36.0-66.0); PLATELET COUNT, AUTOMATED 452 k/mm3 (150-450); RED CELL DISTRIBUTION WIDTH 15.9 % (11.5-14.5); WHITE BLOOD COUNT 5.5 K/mm3 (4.0-10.0)
[2017-06-04 06:19] LABS: ALBUMIN 2.1 GM/DL (3.2-5.2); ALBUMIN/GLOBULIN RATIO 0.48 (1.00-1.93); ALKALINE PHOSPHATASE 131 U/L (45-117); ALT/SGPT 13 U/L (12-78); ANION GAP 9 MEQ/L (8-16); AST/SGOT 19 U/L (15-37); BILIRUBIN,TOTAL 0.2 MG/DL (0.2-1.0); BLOOD UREA NITROGEN 5 MG/DL (7-18); CALCIUM LEVEL 8.4 MG/DL (8.8-10.2); CARBON DIOXIDE LEVEL 26 MEQ/L (21-32); CHLORIDE LEVEL 103 MEQ/L (98-107); CREATININE FOR GFR 0.34 MG/DL (0.55-1.02); GLOMERULAR FILTRATION RATE > 60.0 (>45); GLUCOSE, FASTING 83 MG/DL (80-110); MAGNESIUM LEVEL 1.9 MG/DL (1.8-2.4); POTASSIUM SERUM 3.9 MEQ/L (3.5-5.1); SODIUM LEVEL 138 MEQ/L (136-145); TOTAL PROTEIN 6.5 GM/DL (6.4-8.2)
[2017-06-04] MEDS: HumaLOG INSULIN (NovoLOG) PER UNIT SC SCH ×4 (07:18→20:32)
[2017-06-04] MEDS: CYCLOBENZAPRINE 10 MG TAB PO PRN ×2 (07:39→21:20)
[2017-06-04] MEDS: POTASSIUM CHLORIDE 10 MEQ SR TABLET PO SCH (07:39)
[2017-06-04] MEDS: VITAMIN D (CHOLECALCIFEROL) 400 INTERNATIONAL UNITS TAB PO SCH (07:39)
[2017-06-04] MEDS: PANTOPRAZOLE 40MG TAB (PROTONIX) PO SCH (07:39)
[2017-06-04 08:00] VITALS: BP 164/75
[2017-06-04] MEDS ORDERED: INFLUENZA VIRUS VACCINE HIGH DOSE 0.5 ML SYRINGE (90662) IM ONE (09:00)
[2017-06-04 12:00] VITALS: BP 174/72
--- NOTE | 2017-06-04 12:26 | PHACANCOPD ---
PHARMACY VANCOMYCIN DOSING Pt Demographics Demographics Patient Age:67 , Weight:69.600 , Gender: female Adjusted Body Weight Date: 06/02/17, Adjusted Body Weight: Kg Events Past 24 Hours Events Past 24 Hours: NO: Dialysis, Diuretic Therapy, Change in CrCl, Fever, Elevation in WBC, Pending Diagnostics, Pending Procedures, Other Vancomycin Vancomycin indication: SEPSIS/PNEUMONIA Vancomycin Target Ranges: 15-20 mcg/ml Vancomycin Load Y/N: Yes Load Dose Date Time Vancomycin Load Dose: 1500MG Date: 06-02 Time: 0300 Vancomycin Dose Date: 06/04/17. Current Vancomycin Dose: [1g IV q12h @18] Date: 06/02/17. Current Vancomycin Dose: [1000MG Q8H] Intermittent Dosing?: No Labs Labs Item Value Date Time White Blood Count 12.1 K/mm3 H 06/02/17 0744 White Blood Count 11.4 K/mm3 H 06/03/17 0441 White Blood Count 19.4 K/mm3 H 06/01/17 2247 White Blood Count 5.5 K/mm3 06/04/17 0534 Vancomycin Level Trough 16.6 UG/ML 06/02/17 1915 Vancomycin Level Trough 23.3 UG/ML H 06/04/17 1109 Creatinine 0.38 MG/DL L 06/02/17 0744 Creatinine 0.50 MG/DL L 06/03/17 0440 Creatinine 0.34 MG/DL L 06/04/17 0534 Micro Microbiology 06/04/17 Blood Culture, Received Pending 06/04/17 Blood Culture, Received Pending 06/01/17 Blood Culture - Preliminary, Resulted No Growth after 48 hours. All Specime... 06/01/17 Blood Culture - Preliminary, Resulted 06/02/17 Respiratory Virus Panel (PCR) (JAMALA) - Final, Complete 06/01/17 Urine Culture - Final, Complete Creatinine Clearance Date:06/02/17. Creatinine Clearance: [70]. Pending Labs Trough 06-02 @1900 Assessment and Plan Maintaining Current Dose?: No Reason for dose change: Trough too high Pharmacist Note Pharmacist Note Date: 06/04/17. Pharmacist note: repeat vancomycin trough came back at 23.3 mcg/ ml. I have changed her dosing to 1g IV q12h to resume this evening at 18:00. Date: 06/02/17. Pharmacist note:Dosed at 1000mg q8h with a trough ordered for @1900. Will continue to monitor and amke adjustments as needed. Charanjit Helms Pharm.D. Jun 04, 2017 12:26
--- NOTE | 2017-06-04 15:49 | IPNPDOC ---
Date Seen The patient was seen on 06/04/17. Progress Note Hospitalist Progress Note Subjective: Patient states that she feels much better and has no complaints other than being tired Objective: Physical Exam: Vitals: Vital Sign - Last 24 Hours 06/03/17 06/03/17 06/03/17 06/04/17 16:00 20:00 20:00 00:00 Temp 97.5 99.0 99.6 Pulse 94 91 93 Resp 20 17 18 B/P (MAP) 135/75 (95) 168/70 (102) 147/64 (91) Pulse Ox 99 98 98 O2 Delivery Room Air Room Air Room Air Room Air 06/04/17 06/04/17 06/04/17 06/04/17 04:00 08:00 08:00 12:00 Temp 98.1 97.8 98.4 Pulse 80 83 85 Resp 18 18 B/P (MAP) 141/66 (91) 164/75 (104) 174/72 (106) Pulse Ox 98 98 97 O2 Delivery Room Air Room Air Room Air Room Air General: Awake, Alert, no acute distress HEENT: Normo cephalic, atraumatic, moist mucous membranes CV: Regular rate and rhythm Lungs: Clear to auscultation bilaterally Abd: Soft, nontender, nondistended Extremities: No edema Neuro: Alert and oriented 3, normal speech Psych: Normal mood and affect Labs and Imaging: Laboratory Tests 06/04/17 05:34 Red Blood Count 3.38 L, Mean Corpuscular Volume 78.1 L, Mean Corpuscular Hemoglobin 23.3 L, Mean Corpuscular Hemoglobin Concent 29.8 L, Red Cell Distribution Width 15.9 H, Neutrophils (%) (Auto) 83.8 H, Lymphocytes (%) (Auto ) 10.3 L, Monocytes (%) (Auto) 2.1, Eosinophils (%) (Auto) 2.8, Basophils (%) ( Auto) 0.2, Neutrophils # (Auto) 4.6, Lymphocytes # (Auto) 0.6 L, Monocytes # ( Auto) 0.1, Eosinophils # (Auto) 0.2, Basophils # (Auto) 0.0, Calcium Level 8.4 L , Aspartate Amino Transf (AST/SGOT) 19, Alanine Aminotransferase (ALT/SGPT) 13, Alkaline Phosphatase 131 H, Total Bilirubin 0.2, Total Protein 6.5, Albumin 2.1 L Assessment and Plan: 67-year-old female with rheumatoid arthritis status post multiple joint replacements, diabetes mellitus type 2, COPD, GERD, osteoporosis who presents to the emergency department because she had an episode of decreased mental status with slurred speech. She has been found to have pneumonia and is admitted with sepsis secondary to this pneumonia. 1. Sepsis: This is secondary to the pneumonia seen on the CT of her chest. She is currently afebrile. Her mental status changes have resolved at this point. Continue to treat underlying infection. Continue IV fluids. We are currently holding her home Lasix 2. Pneumonia in an immunocompromised patient: The patient was febrile upon arrival with a white count of 19.4. She has been started on vancomycin and cefepime given that she has been taking CellCept for her rheumatoid arthritis. Her white count has now improved to WNL. Urine culture and RVP were negative. Blood cultures are growing gram positive rods in 1/2. Sputum culture ordered. CT chest does show diffusely enlarged lymph nodes. She'll need follow-up with her primary physicians after adequate treatment for her pneumonia to ensure that these resolve and are simply related to the infection. 3. Rheumatoid arthritis: Hold home CellCept while being treated for active infection. Kpad. 4. Diabetes mellitus type 2: Patient received home Levemir on the first hospital night and then had hypoglycemia overnight and the next day. Started on D5(1/2)NS and decreased nightly levemir from 75u to 50u. Will decrease rate of D5(1/2)NS today and continue to monitor. Sliding scale insulin while in -house. 5. COPD: Currently appears stable. Continue as needed nebulizers. 6. GERD: Continue home PPI. 7. Change in mental status: The family reports that the patient was confused, had slurred speech, urinary incontinence, as well as some shaking and flapping of her hands. They state that this is not the first time this has happened in the last couple days. The patient states that she does not necessarily remember all of this time and feels like she has "lost time." Secondary to the patient's multiple joint prostheses, she is unable to undergo MRI. Upon her physical exam , she has no focal deficits and all of the symptoms seem to have entirely resolved. I think it is unlikely that she has had an acute stroke, but the differential would include TIA versus seizure versus metabolic encephalopathy secondary to her pneumonia. EEG unremarkable. To attempt to minimize any risk factors for future stroke, we checked her cholesterol, which is very well controlled. Continue to control her blood pressure. The patient states she is allergic to aspirin and cannot take that. Given the results of the work up, it seems most likely that this was encephalopathy secondary to sepsis. 8. Bacteremia: Blood cultures are growing gram positive rods in 09/20. Continue current antibiotics and check repeat blood cultures. This may represent contamination as it is only in 09/20. 9. Microcytic Anemia: Per patient, she has been told in the past that she is anemic. Last value in our EMR was over 3 years ago. Although her Hgb is low, it is stable. Check FOBT and iron studies. DVT prophylaxis: Heparin Dispo: pending blood cultures, resolution of hypoglycemia; transfer to the floor VS, I&O, 24H, Fishbone Vital Signs/I&O Vital Signs Date Time Temp Pulse Resp B/P (MAP) Pulse Ox O2 Delivery O2 Flow Rate FiO2 06/04/17 12:00 98.4 85 18 174/72 (106) 97 Room Air I&O- Last 24 Hours up to 6 AM 06/04/17 06:00 Intake Total 2830 ml Output Total 1375 ml Balance 1455 ml Laboratory Data 24H LABS Laboratory Tests 2 06/03/17 17:40: Bedside Glucose (Misc Panel) 156H 06/03/17 20:21: Bedside Glucose (Misc Panel) 132H 06/04/17 05:34: White Blood Count 5.5, Red Blood Count 3.38L, Hemoglobin 7.9L, Hematocrit 26.4L , Mean Corpuscular Volume 78.1L, Mean Corpuscular Hemoglobin 23.3L, Mean Corpuscular Hemoglobin Concent 29.8L, Red Cell Distribution Width 15.9H, Platelet Count 452H, Neutrophils (%) (Auto) 83.8H, Lymphocytes (%) (Auto) 10.3L , Monocytes (%) (Auto) 2.1, Eosinophils (%) (Auto) 2.8, Basophils (%) (Auto) 0.2 , Neutrophils # (Auto) 4.6, Lymphocytes # (Auto) 0.6L, Monocytes # (Auto) 0.1, Eosinophils # (Auto) 0.2, Basophils # (Auto) 0.0, Large Unclassified Cells % 0.8 , Large Unclassified Cells # 0.0, Anion Gap 9, Glomerular Filtration Rate > 60.0 , Blood Urea Nitrogen 5L, Creatinine 0.34L, Sodium Level 138, Potassium Level 3.9, Chloride Level 103, Carbon Dioxide Level 26, Calcium Level 8.4L, Aspartate Amino Transf (AST/SGOT) 19, Alanine Aminotransferase (ALT/SGPT) 13, Alkaline Phosphatase 131H, Total Bilirubin 0.2, Total Protein 6.5, Albumin 2.1L, Magnesium Level 1.9, Albumin/Globulin Ratio 0.48L 06/04/17 11:09: Vancomycin Level Trough 23.3H 06/04/17 11:44: Bedside Glucose (Misc Panel) 206H CBC/BMP Laboratory Tests 06/04/17 05:34 Red Blood Count 3.38 L, Mean Corpuscular Volume 78.1 L, Mean Corpuscular Hemoglobin 23.3 L, Mean Corpuscular Hemoglobin Concent 29.8 L, Red Cell Distribution Width 15.9 H, Neutrophils (%) (Auto) 83.8 H, Lymphocytes (%) (Auto ) 10.3 L, Monocytes (%) (Auto) 2.1, Eosinophils (%) (Auto) 2.8, Basophils (%) ( Auto) 0.2, Neutrophils # (Auto) 4.6, Lymphocytes # (Auto) 0.6 L, Monocytes # ( Auto) 0.1, Eosinophils # (Auto) 0.2, Basophils # (Auto) 0.0, Calcium Level 8.4 L , Aspartate Amino Transf (AST/SGOT) 19, Alanine Aminotransferase (ALT/SGPT) 13, Alkaline Phosphatase 131 H, Total Bilirubin 0.2, Total Protein 6.5, Albumin 2.1 L Microbiology Microbiology 06/04/17 Blood Culture, Received Pending 06/04/17 Blood Culture, Received Pending 06/01/17 Blood Culture - Preliminary, Resulted No Growth after 48 hours. All Specime... 06/01/17 Blood Culture - Preliminary, Resulted 06/02/17 Respiratory Virus Panel (PCR) (JAMAAL) - Final, Complete 06/01/17 Urine Culture - Final, Complete NE BARAJAS Jun 04, 2017 15:49
[2017-06-04] MEDS: LEVEMIR (INSULIN DETEMIR) 1 UNITS/0.01ML SC SCH (21:20)
[2017-06-04] MEDS: AMITRIPTYLINE 10 MG TAB PO SCH (21:31)
[2017-06-04 22:00] VITALS: BP 135/58
[2017-06-05] MEDS: CEFEPIME HCL 1 GM in D5W MINI-BAG PLUS 50 ML IV SCH ×2 (04:56→17:05)
[2017-06-05] MEDS: VANCOMYCIN HCL 1,000 MG, VIAL MATE ADAPTER 1 EACH in D5W 250 ML IV SCH ×2 (05:36→17:57)
[2017-06-05] MEDS: HEPARIN SOD (PORCINE) 5000 UNITS/ML VIAL SC SCH ×3 (05:37→21:26)
[2017-06-05 06:00] VITALS: BP 145/63
[2017-06-05 06:34] LABS: BASO % 0.1 % (0.0-1.0); EOS # 0.1 K/mm3 (0.0-0.50); EOS % 3.2 % (0.0-3.0); LARGE UNSTAINED CELL # 0.1 K/mm3 (0.0-0.4); LARGE UNSTAINED CELL % 1.7 % (0.0-4.0); LYMPH # 0.5 K/mm3 (1.5-4.5); LYMPH % 10.5 % (24.0-44.0); MEAN CORPUSCULAR HEMOGLOBIN 23.6 pg (27.0-33.0); MEAN CORPUSCULAR HGB CONC 30.5 g/dl (32.0-36.5); MEAN CORPUSCULAR VOLUME 77.4 fl (80.0-96.0); MONO # 0.1 K/mm3 (0.0-0.8); MONO % 3.2 % (0.0-5.0); NEUTROPHILS # 3.5 K/mm3 (1.8-7.7); NEUTROPHILS % 81.2 % (36.0-66.0); PLATELET COUNT, AUTOMATED 423 k/mm3 (150-450); RED CELL DISTRIBUTION WIDTH 15.9 % (11.5-14.5); WHITE BLOOD COUNT 4.3 K/mm3 (4.0-10.0)
[2017-06-05 06:46] LABS: ALBUMIN 2.1 GM/DL (3.2-5.2); ALBUMIN/GLOBULIN RATIO 0.49 (1.00-1.93); ALKALINE PHOSPHATASE 127 U/L (45-117); ALT/SGPT 14 U/L (12-78); ANION GAP 6 MEQ/L (8-16); AST/SGOT 23 U/L (15-37); BILIRUBIN,TOTAL 0.2 MG/DL (0.2-1.0); BLOOD UREA NITROGEN 5 MG/DL (7-18); CALCIUM LEVEL 8.6 MG/DL (8.8-10.2); CARBON DIOXIDE LEVEL 27 MEQ/L (21-32); CHLORIDE LEVEL 104 MEQ/L (98-107); CREATININE FOR GFR 0.36 MG/DL (0.55-1.02); FERRITIN 866 NG/ML (8-252); GLOMERULAR FILTRATION RATE > 60.0 (>45); GLUCOSE, FASTING 67 MG/DL (80-110); MAGNESIUM LEVEL 2.1 MG/DL (1.8-2.4); PERCENT SATURATION 7.7 % (13.2-45.0); POTASSIUM SERUM 3.8 MEQ/L (3.5-5.1); SODIUM LEVEL 137 MEQ/L (136-145); TOTAL IRON BINDING CAPACITY 287 UG/DL (250-450); TOTAL PROTEIN 6.4 GM/DL (6.4-8.2)
[2017-06-05] MEDS: HumaLOG INSULIN (NovoLOG) PER UNIT SC SCH ×4 (07:17→21:00)
[2017-06-05] MEDS: CYCLOBENZAPRINE 10 MG TAB PO PRN ×2 (08:37→14:54)
[2017-06-05] MEDS: POTASSIUM CHLORIDE 10 MEQ SR TABLET PO SCH (08:37)
[2017-06-05] MEDS: VITAMIN D (CHOLECALCIFEROL) 400 INTERNATIONAL UNITS TAB PO SCH (08:37)
[2017-06-05] MEDS: PANTOPRAZOLE 40MG TAB (PROTONIX) PO SCH (08:37)
[2017-06-05] MEDS: D5W/0.45% SODIUM CHLORIDE 1,000 ML IV SCH (10:20)
--- NOTE | 2017-06-05 11:53 | IPNPDOC ---
Date Seen The patient was seen on 06/05/17. Progress Note Hospitalist Progress Note Subjective: Patient states that she feels much better Objective: Physical Exam: Vitals: Vital Sign - Last 24 Hours 06/04/17 06/04/17 06/04/17 06/04/17 12:00 18:15 20:01 22:00 Temp 98.4 97.9 Pulse 85 92 Resp 18 18 B/P (MAP) 174/72 (106) 135/58 (83) Pulse Ox 97 100 O2 Delivery Room Air Room Air Room Air 06/05/17 06/05/17 06:00 09:17 Temp 97.8 Pulse 78 Resp 18 B/P (MAP) 145/63 (90) Pulse Ox 98 O2 Delivery Room Air Room Air General: Awake, Alert, no acute distress HEENT: Normo cephalic, atraumatic, moist mucous membranes CV: Regular rate and rhythm Lungs: Clear to auscultation bilaterally Abd: Soft, nontender, nondistended Extremities: No edema Neuro: Alert and oriented 3, normal speech Psych: Normal mood and affect Labs and Imaging: Laboratory Tests 06/05/17 05:54 Red Blood Count 3.38 L, Mean Corpuscular Volume 77.4 L, Mean Corpuscular Hemoglobin 23.6 L, Mean Corpuscular Hemoglobin Concent 30.5 L, Red Cell Distribution Width 15.9 H, Neutrophils (%) (Auto) 81.2 H, Lymphocytes (%) (Auto ) 10.5 L, Monocytes (%) (Auto) 3.2, Eosinophils (%) (Auto) 3.2 H, Basophils (%) (Auto) 0.1, Neutrophils # (Auto) 3.5, Lymphocytes # (Auto) 0.5 L, Monocytes # ( Auto) 0.1, Eosinophils # (Auto) 0.1, Basophils # (Auto) 0.0, Calcium Level 8.6 L , Aspartate Amino Transf (AST/SGOT) 23, Alanine Aminotransferase (ALT/SGPT) 14, Alkaline Phosphatase 127 H, Total Bilirubin 0.2, Total Protein 6.4, Albumin 2.1 L Assessment and Plan: 67-year-old female with rheumatoid arthritis status post multiple joint replacements, diabetes mellitus type 2, COPD, GERD, osteoporosis who presents to the emergency department because she had an episode of decreased mental status with slurred speech. She has been found to have pneumonia and is admitted with sepsis secondary to this pneumonia. 1. Sepsis: This is secondary to the pneumonia seen on the CT of her chest. She is currently afebrile. Her mental status changes have resolved at this point. Continue to treat underlying infection. Continue IV fluids. We are currently holding her home Lasix 2. Pneumonia in an immunocompromised patient: The patient was febrile upon arrival with a white count of 19.4. She has been started on vancomycin and cefepime given that she has been taking CellCept for her rheumatoid arthritis. Her white count has now improved to WNL. Urine culture and RVP were negative. Initial blood cultures are growing gram positive rods in 1/2. Sputum culture ordered. CT chest does show diffusely enlarged lymph nodes. She'll need follow- up with her primary physicians after adequate treatment for her pneumonia to ensure that these resolve and are simply related to the infection. 3. Rheumatoid arthritis: Hold home CellCept while being treated for active infection. Kpad and home pain meds. 4. Diabetes mellitus type 2: Patient received home Levemir on the first hospital night and then had hypoglycemia overnight and the next day. Started on D5(1/2)NS and decreased nightly levemir from 75u to 50u. Still a bit hypoglycemic this AM so will decrease levemir to 30u. Continue decreased rate of D5(1/2)NS today and continue to monitor. Sliding scale insulin while in- house. 5. COPD: Currently appears stable. Continue as needed nebulizers. 6. GERD: Continue home PPI. 7. Change in mental status: The family reports that the patient was confused, had slurred speech, urinary incontinence, as well as some shaking and flapping of her hands. They state that this is not the first time this has happened in the last couple days prior to admit. The patient states that she does not necessarily remember all of this time and feels like she has "lost time." Secondary to the patient's multiple joint prostheses, she is unable to undergo MRI. Upon her physical exam, she has no focal deficits and all of the symptoms seem to have entirely resolved. I think it is unlikely that she has had an acute stroke, but the differential would include TIA versus seizure versus metabolic encephalopathy secondary to her pneumonia. EEG unremarkable. To attempt to minimize any risk factors for future stroke, we checked her cholesterol, which is very well controlled. Continue to control her blood pressure. The patient states she is allergic to aspirin and cannot take that. Given the results of the work up, it seems most likely that this was encephalopathy secondary to sepsis. 8. Bacteremia: Initial blood cultures are growing gram positive rods in 1. Continue current antibiotics and follow up repeat blood cultures. This may represent contamination as it is only in 09/20. 9. Microcytic Anemia: Per patient, she has been told in the past that she is anemic. Last value in our EMR was over 3 years ago. Although her Hgb is low, it is stable. FOBT ordered; iron studies suggest a mixed picture, which I suspect is iron deficiency plus the side effects of her cellcept. Will start ferrous sulfate after collecting FOBT. DVT prophylaxis: Heparin Dispo: pending blood cultures, resolution of hypoglycemia VS, I&O, 24H, Fishbone Vital Signs/I&O Vital Signs Date Time Temp Pulse Resp B/P (MAP) Pulse Ox O2 Delivery O2 Flow Rate FiO2 06/05/17 09:17 Room Air 06/05/17 06:00 97.8 78 18 145/63 (90) 98 I&O- Last 24 Hours up to 6 AM 06/05/17 06:00 Intake Total 1802 ml Output Total 600 ml Balance 1202 ml Laboratory Data 24H LABS Laboratory Tests 2 06/04/17 16:29: Bedside Glucose (Misc Panel) 138H 06/04/17 20:21: Bedside Glucose (Misc Panel) 216H 06/05/17 05:54: White Blood Count 4.3, Red Blood Count 3.38L, Hemoglobin 8.0L, Hematocrit 26.1L , Mean Corpuscular Volume 77.4L, Mean Corpuscular Hemoglobin 23.6L, Mean Corpuscular Hemoglobin Concent 30.5L, Red Cell Distribution Width 15.9H, Platelet Count 423, Neutrophils (%) (Auto) 81.2H, Lymphocytes (%) (Auto) 10.5L, Monocytes (%) (Auto) 3.2, Eosinophils (%) (Auto) 3.2H, Basophils (%) (Auto) 0.1 , Neutrophils # (Auto) 3.5, Lymphocytes # (Auto) 0.5L, Monocytes # (Auto) 0.1, Eosinophils # (Auto) 0.1, Basophils # (Auto) 0.0, Large Unclassified Cells % 1.7 , Large Unclassified Cells # 0.1, Anion Gap 6L, Glomerular Filtration Rate > 60.0, Blood Urea Nitrogen 5L, Creatinine 0.36L, Sodium Level 137, Potassium Level 3.8, Chloride Level 104, Carbon Dioxide Level 27, Calcium Level 8.6L, Aspartate Amino Transf (AST/SGOT) 23, Alanine Aminotransferase (ALT/SGPT) 14, Alkaline Phosphatase 127H, Total Bilirubin 0.2, Total Protein 6.4, Albumin 2.1L , Magnesium Level 2.1, Iron Level 22L, Total Iron Binding Capacity 287, Transferrin % Saturation 7.7L, Ferritin 866H, Albumin/Globulin Ratio 0.49L CBC/BMP Laboratory Tests 06/05/17 05:54 Red Blood Count 3.38 L, Mean Corpuscular Volume 77.4 L, Mean Corpuscular Hemoglobin 23.6 L, Mean Corpuscular Hemoglobin Concent 30.5 L, Red Cell Distribution Width 15.9 H, Neutrophils (%) (Auto) 81.2 H, Lymphocytes (%) (Auto ) 10.5 L, Monocytes (%) (Auto) 3.2, Eosinophils (%) (Auto) 3.2 H, Basophils (%) (Auto) 0.1, Neutrophils # (Auto) 3.5, Lymphocytes # (Auto) 0.5 L, Monocytes # ( Auto) 0.1, Eosinophils # (Auto) 0.1, Basophils # (Auto) 0.0, Calcium Level 8.6 L , Aspartate Amino Transf (AST/SGOT) 23, Alanine Aminotransferase (ALT/SGPT) 14, Alkaline Phosphatase 127 H, Total Bilirubin 0.2, Total Protein 6.4, Albumin 2.1 L Microbiology Microbiology 06/04/17 Blood Culture - Preliminary, Resulted No growth after 24 hours . All specim... 06/04/17 Blood Culture - Preliminary, Resulted No growth after 24 hours . All specim... 06/01/17 Blood Culture - Preliminary, Resulted No Growth after 72 hours. All specime... 06/01/17 Blood Culture - Preliminary, Resulted 06/02/17 Respiratory Virus Panel (PCR) ([facility]) - Final, Complete 06/01/17 Urine Culture - Final, Complete NE BARAJAS Jun 05, 2017 11:53
[2017-06-05 14:13] VITALS: BP 151/67
--- NOTE | 2017-06-05 17:39 | ECGEPIP ---
Stationary ECG Study [facility] Test Date: 2017-06-05 Pat Name: CYRIL PATRICK Department: Room: [place] [address] Gender: F Receiving Worker: CLOVIS : 1950 Requested By: NE Moy Order Number: [id number] Reading MD: Griffin Gomez Measurements Intervals [place] Rate: 81 P: 52 UT: 147 QRS: -9 QRSD: 88 T: 31 QT: 359 QTc: 419 Interpretive Statements SINUS RHYTHM Borderline Left ventricular hypertrophy by aVL criteria rate decreased from tracing done 06-01-17 Electronically Signed On 06-05-2017 17:39:05 EDT by Griffin Gomez
[2017-06-05] MEDS ORDERED: LEVEMIR (INSULIN DETEMIR) 1 UNITS/0.01ML SC SCH (21:00)
[2017-06-05] MEDS: AMITRIPTYLINE 10 MG TAB PO SCH (21:24)
[2017-06-05 22:00] VITALS: BP 150/62
[2017-06-06] MEDS: CYCLOBENZAPRINE 10 MG TAB PO PRN ×2 (01:58→21:48)
[2017-06-06] MEDS: CEFEPIME HCL 1 GM in D5W MINI-BAG PLUS 50 ML IV SCH (05:00)
[2017-06-06 05:31] LABS: BASO % 0.5 % (0.0-1.0); EOS # 0.2 K/mm3 (0.0-0.50); EOS % 5.3 % (0.0-3.0); LARGE UNSTAINED CELL % 0.6 % (0.0-4.0); LYMPH # 0.5 K/mm3 (1.5-4.5); LYMPH % 11.5 % (24.0-44.0); MEAN CORPUSCULAR HEMOGLOBIN 23.2 pg (27.0-33.0); MEAN CORPUSCULAR HGB CONC 29.6 g/dl (32.0-36.5); MEAN CORPUSCULAR VOLUME 78.3 fl (80.0-96.0); MONO # 0.1 K/mm3 (0.0-0.8); NEUTROPHILS # 3.5 K/mm3 (1.8-7.7); NEUTROPHILS % 79.1 % (36.0-66.0); PLATELET COUNT, AUTOMATED 468 k/mm3 (150-450); RED CELL DISTRIBUTION WIDTH 16.2 % (11.5-14.5); WHITE BLOOD COUNT 4.4 K/mm3 (4.0-10.0)
[2017-06-06] MEDS: HEPARIN SOD (PORCINE) 5000 UNITS/ML VIAL SC SCH ×3 (05:47→21:48)
[2017-06-06 05:48] LABS: ALBUMIN 2.1 GM/DL (3.2-5.2); ALKALINE PHOSPHATASE 136 U/L (45-117); ALT/SGPT 15 U/L (12-78); ANION GAP 9 MEQ/L (8-16); AST/SGOT 25 U/L (15-37); BILIRUBIN,TOTAL 0.2 MG/DL (0.2-1.0); BLOOD UREA NITROGEN 7 MG/DL (7-18); CALCIUM LEVEL 8.1 MG/DL (8.8-10.2); CARBON DIOXIDE LEVEL 27 MEQ/L (21-32); CHLORIDE LEVEL 106 MEQ/L (98-107); CREATININE FOR GFR 0.37 MG/DL (0.55-1.02); GLOMERULAR FILTRATION RATE > 60.0 (>45); GLUCOSE, FASTING 94 MG/DL (80-110); POTASSIUM SERUM 3.9 MEQ/L (3.5-5.1); SODIUM LEVEL 142 MEQ/L (136-145); TOTAL PROTEIN 6.3 GM/DL (6.4-8.2)
[2017-06-06 06:00] VITALS: BP 134/65
--- NOTE | 2017-06-06 06:02 | PHACANCOPD ---
PHARMACY VANCOMYCIN DOSING Pt Demographics Demographics Patient Age:67 , Weight:68.900 , Gender: female Adjusted Body Weight Date: 06/02/17, Adjusted Body Weight: Kg Events Past 24 Hours Events Past 24 Hours: NO: Dialysis, Diuretic Therapy, Change in CrCl, Fever, Elevation in WBC, Pending Diagnostics, Pending Procedures, Other Vancomycin Vancomycin indication: SEPSIS/PNEUMONIA Vancomycin Target Ranges: 15-20 mcg/ml Vancomycin Load Y/N: Yes Load Dose Date Time Vancomycin Load Dose: 1500MG Date: 06-02 Time: 0300 Vancomycin Dose Date: 06/04/17. Current Vancomycin Dose: [1g IV q12h @18] Date: 06/02/17. Current Vancomycin Dose: [1000MG Q8H] Intermittent Dosing?: No Labs Labs Item Value Date Time White Blood Count 4.4 K/mm3 06/06/17518 Creatinine 0.37 MG/DL L 06/06/17518 Blood Urea Nitrogen 7 MG/DL 06/06/17518 Vancomycin Level Trough 17.6 UG/ML 06/06/17518 Vital Signs Label Value Date Time Patient Temperature 98.2 degrees F 06/05/17 2200 Temperature Source Core 06/05/17 2200 Micro Microbiology 06/04/17 Blood Culture - Preliminary, Resulted No growth after 24 hours . All specim... 06/04/17 Blood Culture - Preliminary, Resulted No growth after 24 hours . All specim... 06/01/17 Blood Culture - Preliminary, Resulted No Growth after 72 hours. All specime... 06/01/17 Blood Culture - Preliminary, Resulted 06/02/17 Respiratory Virus Panel (PCR) ([facility]) - Final, Complete 06/01/17 Urine Culture - Final, Complete Creatinine Clearance Date:06/02/17. Creatinine Clearance: [70]. Assessment and Plan Maintaining Current Dose?: Yes Reason for dose change: No Dose Change Pharmacist Note Pharmacist Note Date: 06/06/17. Pharmacist note:Trough of 17.6 is within target range. Will continue current dosing. Will continue to monitor and make adjustments as needed. RUBÉN [facility] Jun 06, 2017 06:02
[2017-06-06] MEDS: VANCOMYCIN HCL 1,000 MG, VIAL MATE ADAPTER 1 EACH in D5W 250 ML IV SCH (06:24)
[2017-06-06] MEDS: D5W/0.45% SODIUM CHLORIDE 1,000 ML IV SCH (07:16)
[2017-06-06] MEDS: HumaLOG INSULIN (NovoLOG) PER UNIT SC SCH ×4 (07:27→21:00)
[2017-06-06] MEDS: VITAMIN D (CHOLECALCIFEROL) 400 INTERNATIONAL UNITS TAB PO SCH (08:11)
[2017-06-06] MEDS: POTASSIUM CHLORIDE 10 MEQ SR TABLET PO SCH (08:11)
[2017-06-06] MEDS: PANTOPRAZOLE 40MG TAB (PROTONIX) PO SCH (08:37)
[2017-06-06] MEDS: CEFDINIR 300 MG CAP (OMNICEF) PO SCH ×2 (11:55→21:48)
--- NOTE | 2017-06-06 13:38 | IPNPDOC ---
Date Seen The patient was seen on 06/06/17. Progress Note Hospitalist Progress Note Subjective: Patient states that she feels much better; breathing is improved; had some central center/epigastrum pain yesterday afternoon that is now resolved Objective: Physical Exam: Vitals: Vital Sign - Last 24 Hours 06/05/17 06/05/17 06/05/17 06/06/17 14:13 21:00 22:00 06:00 Temp 99.7 98.2 99.0 Pulse 86 78 77 Resp B/P (MAP) 151/67 (95) 150/62 (91) 134/65 (88) Pulse Ox 97 97 98 O2 Delivery Room Air Room Air Room Air Room Air 06/06/17 08:00 O2 Delivery Room Air General: Awake, Alert, no acute distress HEENT: Normo cephalic, atraumatic, moist mucous membranes CV: Regular rate and rhythm Lungs: Clear to auscultation bilaterally Abd: Soft, nontender, nondistended Extremities: No edema Neuro: Alert and oriented 3, normal speech Psych: Normal mood and affect Labs and Imaging: Laboratory Tests 06/06/17 05:19 Red Blood Count 3.59 L, Mean Corpuscular Volume 78.3 L, Mean Corpuscular Hemoglobin 23.2 L, Mean Corpuscular Hemoglobin Concent 29.6 L, Red Cell Distribution Width 16.2 H, Neutrophils (%) (Auto) 79.1 H, Lymphocytes (%) (Auto ) 11.5 L, Monocytes (%) (Auto) 3.0, Eosinophils (%) (Auto) 5.3 H, Basophils (%) (Auto) 0.5, Neutrophils # (Auto) 3.5, Lymphocytes # (Auto) 0.5 L, Monocytes # ( Auto) 0.1, Eosinophils # (Auto) 0.2, Basophils # (Auto) 0.0, Calcium Level 8.1 L , Aspartate Amino Transf (AST/SGOT) 25, Alanine Aminotransferase (ALT/SGPT) 15, Total Creatine Kinase 21 L, Alkaline Phosphatase 136 H, Total Bilirubin 0.2, Total Protein 6.3 L, Albumin 2.1 L Assessment and Plan: 67-year-old female with rheumatoid arthritis status post multiple joint replacements, diabetes mellitus type 2, COPD, GERD, osteoporosis who presents to the emergency department because she had an episode of decreased mental status with slurred speech. She has been found to have pneumonia and is admitted with sepsis secondary to this pneumonia. 1. Sepsis: This is secondary to the pneumonia seen on the CT of her chest. She is currently afebrile. Her mental status changes have resolved at this point. Continue to treat underlying infection. We are currently holding her home Lasix 2. Pneumonia in an immunocompromised patient: The patient was febrile upon arrival with a white count of 19.4. She was initially started on vancomycin and cefepime given that she has been taking CellCept for her rheumatoid arthritis. Her white count has now improved to WNL. Urine culture and RVP were negative. Initial blood cultures are growing gram positive rods in 09/20. Repeat blood cultures negative. Will change to PO omnicef given her allergies to quinolones and sulfa. CT chest does show diffusely enlarged lymph nodes. She'll need follow -up with her primary physicians after adequate treatment for her pneumonia to ensure that these resolve and are simply related to the infection. 3. Rheumatoid arthritis: Hold home CellCept while being treated for active infection. Kpad and home pain meds. 4. Diabetes mellitus type 2: Patient received home Levemir on the first hospital night and then had hypoglycemia overnight and the next day. Started on D5(09/20)NS and decreased nightly levemir from 75u to 30u. Still a bit hypoglycemic overnight so will stop levemir entirely. IV blew, but patient is eating well, so will leave IVF off and monitor glucose closely. Will replace IV and restart D5 if glucose drops. Sliding scale insulin while in-house. 5. COPD: Currently appears stable. Continue as needed nebulizers. 6. GERD: Continue home PPI. 7. Change in mental status: The family reports that the patient was confused, had slurred speech, urinary incontinence, as well as some shaking and flapping of her hands. They state that this is not the first time this has happened in the last couple days prior to admit. The patient states that she does not necessarily remember all of this time and feels like she has "lost time." Secondary to the patient's multiple joint prostheses, she is unable to undergo MRI. Upon her physical exam, she has no focal deficits and all of the symptoms seem to have entirely resolved. I think it is unlikely that she has had an acute stroke, but the differential would include TIA versus seizure versus metabolic encephalopathy secondary to her pneumonia. EEG unremarkable. To attempt to minimize any risk factors for future stroke, we checked her cholesterol, which is very well controlled. Continue to control her blood pressure. The patient states she is allergic to aspirin and cannot take that. Given the results of the work up, it seems most likely that this was encephalopathy secondary to sepsis. 8. Bacteremia: Initial blood cultures are growing gram positive rods in 09/20. Repeat blood cultures are now negative; I suspect this represents contamination as it is only in 09/20. Change from IV vanc and cefepime to PO omnicef given her allergies to quinolones and sulfa. 9. Microcytic Anemia: Per patient, she has been told in the past that she is anemic. Last value in our EMR was over 3 years ago. Although her Hgb is low, it is stable. FOBT ordered but not yet collected; iron studies suggest a mixed picture, which I suspect is iron deficiency plus the side effects of her cellcept. Will start ferrous sulfate after collecting FOBT. 10. Central chest/epigastric pain on 06/05: EKG and trops unremarkable; likely GI in nature; now resolved. DVT prophylaxis: Heparin Dispo: pending resolution of hypoglycemia VS, I&O, 24H, Fishbone Vital Signs/I&O Vital Signs Date Time Temp Pulse Resp B/P (MAP) Pulse Ox O2 Delivery O2 Flow Rate FiO2 06/06/17 08:00 Room Air 06/06/17 06:00 99.0 77 18 134/65 (88) 98 I&O- Last 24 Hours up to 6 AM 06/06/17 06:00 Intake Total 1855 ml Output Total 1000 ml Balance 855 ml Laboratory Data 24H LABS Laboratory Tests 2 06/05/17 14:29: Total Creatine Kinase 25L, Creatine Kinase MB 1.0, Creatine Kinase MB Relative Index 4.00, Troponin I < 0.02 06/05/17 16:57: Bedside Glucose (Misc Panel) 115 06/05/17 20:51: Bedside Glucose (Misc Panel) 167H 06/05/17 22:19: Total Creatine Kinase 21L, Creatine Kinase MB 1.0, Creatine Kinase MB Relative Index 4.76H, Troponin I < 0.02 06/06/17 01:56: Bedside Glucose (Misc Panel) 67L 06/06/17 04:02: Bedside Glucose (Misc Panel) 101 06/06/17 05:19: White Blood Count 4.4, Red Blood Count 3.59L, Hemoglobin 8.3L, Hematocrit 28.1L , Mean Corpuscular Volume 78.3L, Mean Corpuscular Hemoglobin 23.2L, Mean Corpuscular Hemoglobin Concent 29.6L, Red Cell Distribution Width 16.2H, Platelet Count 468H, Neutrophils (%) (Auto) 79.1H, Lymphocytes (%) (Auto) 11.5L , Monocytes (%) (Auto) 3.0, Eosinophils (%) (Auto) 5.3H, Basophils (%) (Auto) 0.5, Neutrophils # (Auto) 3.5, Lymphocytes # (Auto) 0.5L, Monocytes # (Auto) 0.1 , Eosinophils # (Auto) 0.2, Basophils # (Auto) 0.0, Large Unclassified Cells % 0.6, Large Unclassified Cells # 0.0, Anion Gap 9, Glomerular Filtration Rate > 60.0, Blood Urea Nitrogen 7, Creatinine 0.37L, Sodium Level 142, Potassium Level 3.9, Chloride Level 106, Carbon Dioxide Level 27, Calcium Level 8.1L, Aspartate Amino Transf (AST/SGOT) 25, Alanine Aminotransferase (ALT/SGPT) 15, Total Creatine Kinase 21L, Alkaline Phosphatase 136H, Total Bilirubin 0.2, Total Protein 6.3L, Albumin 2.1L, Magnesium Level 2.0, Creatine Kinase MB 1.0, Creatine Kinase MB Relative Index 4.76H, Troponin I < 0.02, Albumin/Globulin Ratio 0.50L, Vancomycin Level Trough 17.6 06/06/17 11:41: Bedside Glucose (Misc Panel) 87 CBC/BMP Laboratory Tests 06/06/17 05:19 Red Blood Count 3.59 L, Mean Corpuscular Volume 78.3 L, Mean Corpuscular Hemoglobin 23.2 L, Mean Corpuscular Hemoglobin Concent 29.6 L, Red Cell Distribution Width 16.2 H, Neutrophils (%) (Auto) 79.1 H, Lymphocytes (%) (Auto ) 11.5 L, Monocytes (%) (Auto) 3.0, Eosinophils (%) (Auto) 5.3 H, Basophils (%) (Auto) 0.5, Neutrophils # (Auto) 3.5, Lymphocytes # (Auto) 0.5 L, Monocytes # ( Auto) 0.1, Eosinophils # (Auto) 0.2, Basophils # (Auto) 0.0, Calcium Level 8.1 L , Aspartate Amino Transf (AST/SGOT) 25, Alanine Aminotransferase (ALT/SGPT) 15, Total Creatine Kinase 21 L, Alkaline Phosphatase 136 H, Total Bilirubin 0.2, Total Protein 6.3 L, Albumin 2.1 L Microbiology Microbiology 06/04/17 Blood Culture - Preliminary, Resulted No Growth after 48 hours. All Specime... 06/04/17 Blood Culture - Preliminary, Resulted No Growth after 48 hours. All Specime... 06/01/17 Blood Culture - Preliminary, Resulted No Growth after 72 hours. All specime... 06/01/17 Blood Culture - Preliminary, Resulted 06/02/17 Respiratory Virus Panel (PCR) ([facility]) - Final, Complete 06/01/17 Urine Culture - Final, Complete NE BARAJAS Jun 06, 2017 13:38
[2017-06-06] MEDS: AMITRIPTYLINE 10 MG TAB PO SCH (21:48)
[2017-06-06 22:00] VITALS: BP 140/60
[2017-06-07] MEDS: HEPARIN SOD (PORCINE) 5000 UNITS/ML VIAL SC SCH (05:42)
[2017-06-07 06:00] VITALS: BP 156/67
[2017-06-07 07:11] LABS: BASO % 0.3 % (0.0-1.0); EOS # 0.3 K/mm3 (0.0-0.50); EOS % 5.6 % (0.0-3.0); LARGE UNSTAINED CELL # 0.1 K/mm3 (0.0-0.4); LARGE UNSTAINED CELL % 0.9 % (0.0-4.0); LYMPH # 0.7 K/mm3 (1.5-4.5); LYMPH % 13.1 % (24.0-44.0); MEAN CORPUSCULAR VOLUME 79.2 fl (80.0-96.0); MONO # 0.1 K/mm3 (0.0-0.8); MONO % 2.1 % (0.0-5.0); NEUTROPHILS # 4.1 K/mm3 (1.8-7.7); NEUTROPHILS % 77.9 % (36.0-66.0); PLATELET COUNT, AUTOMATED 489 k/mm3 (150-450); RED CELL DISTRIBUTION WIDTH 16.4 % (11.5-14.5); WHITE BLOOD COUNT 5.2 K/mm3 (4.0-10.0)
[2017-06-07] MEDS: HumaLOG INSULIN (NovoLOG) PER UNIT SC SCH (07:30)
[2017-06-07 07:33] LABS: ALBUMIN 2.2 GM/DL (3.2-5.2); ALKALINE PHOSPHATASE 147 U/L (45-117); ALT/SGPT 15 U/L (12-78); ANION GAP 8 MEQ/L (8-16); AST/SGOT 26 U/L (15-37); BILIRUBIN,TOTAL 0.2 MG/DL (0.2-1.0); BLOOD UREA NITROGEN 8 MG/DL (7-18); CALCIUM LEVEL 8.6 MG/DL (8.8-10.2); CARBON DIOXIDE LEVEL 27 MEQ/L (21-32); CHLORIDE LEVEL 105 MEQ/L (98-107); CREATININE FOR GFR 0.41 MG/DL (0.55-1.02); GLOMERULAR FILTRATION RATE > 60.0 (>45); GLUCOSE, FASTING 73 MG/DL (80-110); MAGNESIUM LEVEL 2.1 MG/DL (1.8-2.4); POTASSIUM SERUM 4.1 MEQ/L (3.5-5.1); SODIUM LEVEL 140 MEQ/L (136-145); TOTAL PROTEIN 6.6 GM/DL (6.4-8.2)
[2017-06-07] MEDS ORDERED: CELL500T PO (08:10)
[2017-06-07] MEDS ORDERED: CEFD300CAP PO (08:10)
[2017-06-07] MEDS ORDERED: FERR325T3 PO (08:12)
[2017-06-07] MEDS: POTASSIUM CHLORIDE 10 MEQ SR TABLET PO SCH (08:38)
[2017-06-07] MEDS: VITAMIN D (CHOLECALCIFEROL) 400 INTERNATIONAL UNITS TAB PO SCH (08:38)
[2017-06-07] MEDS: CEFDINIR 300 MG CAP (OMNICEF) PO SCH (08:38)
[2017-06-07] MEDS: PANTOPRAZOLE 40MG TAB (PROTONIX) PO SCH (08:38)
--- NOTE | 2017-06-07 13:43 | DS.PDOC ---
Discharge Summary General Date of Admission Jun 02, 2017 at 01:24 Date of Discharge 06/07/2017 Discharge Summary DISCHARGE SUMMARY DATE OF ADMISSION: 06/02/2017 DATE OF DISCHARGE: 06/07/2017 PRIMARY CARE PHYSICIAN: Adelina Martin DISCHARGE DIAGNOS(E)S: Sepsis secondary to pneumonia Bacteremia Hypoglycemia Microcytic anemia HPI & HOSPITAL COURSE: 67-year-old female with rheumatoid arthritis status post multiple joint replacements, diabetes mellitus type 2, COPD, GERD, osteoporosis who presents to the emergency department because she had an episode of decreased mental status with slurred speech. She has been found to have pneumonia and is admitted with sepsis secondary to this pneumonia. 1. Sepsis: This is secondary to the pneumonia seen on the CT of her chest. She is currently afebrile. Her mental status changes have resolved at this point. Continue to treat underlying infection. We are currently holding her home Lasix but will resume at discharge. 2. Pneumonia in an immunocompromised patient: The patient was febrile upon arrival with a white count of 19.4. She was initially started on vancomycin and cefepime given that she has been taking CellCept for her rheumatoid arthritis. Her white count has now improved to WNL. Urine culture and RVP were negative. Initial blood cultures are growing gram positive rods in 09/20 which is found to be cornybacterium. Repeat blood cultures negative. Have changed to PO omnicef given her allergies to quinolones and sulfa. CT chest does show diffusely enlarged lymph nodes. She'll need follow-up with her primary physicians after adequate treatment for her pneumonia to ensure that these resolve and are simply related to the infection. 3. Rheumatoid arthritis: Hold home CellCept while being treated for active infection. Patient has been instructed to hold off on taking her cellcept until she finishes her omnicef. Kpad and home pain meds. 4. Diabetes mellitus type 2: Patient received home Levemir on the first hospital night and then had hypoglycemia overnight and the next day. Started on D5(09/20)NS and decreased nightly levemir from 75u to 30u. Still a bit hypoglycemic overnight so stopped levemir entirely. This morning, after receiving no levemir (but being off any IVF with D5), her glucose was still under 100. The patient has been instructed to continue her sliding scale insulin , but to stop any scheduled Levemir or other scheduled insulin. She is to keep a log of her fingersticks, and take it to her PCP later this week for further guidance in possibly restarting long-acting insulin. 5. COPD: Currently appears stable. Continue as needed nebulizers. 6. GERD: Continue home PPI. 7. Change in mental status: The family reports that the patient was confused, had slurred speech, urinary incontinence, as well as some shaking and flapping of her hands. They state that this is not the first time this has happened in the last couple days prior to admit. The patient states that she does not necessarily remember all of this time and feels like she has "lost time." Secondary to the patient's multiple joint prostheses, she is unable to undergo MRI. Upon her physical exam, she has no focal deficits and all of the symptoms seem to have entirely resolved. I think it is unlikely that she has had an acute stroke, but the differential would include TIA versus seizure versus metabolic encephalopathy secondary to her pneumonia. EEG unremarkable. To attempt to minimize any risk factors for future stroke, we checked her cholesterol, which is very well controlled. Continue to control her blood pressure. The patient states she is allergic to aspirin and cannot take that. Given the results of the work up, it seems most likely that this was encephalopathy secondary to sepsis. 8. Bacteremia: Initial blood cultures are growing gram positive rods in 09/20 which is found to be cornybacterium. Repeat blood cultures are now negative; I suspect this represents contamination as it is only in 09/20. Changed from IV vanc and cefepime to PO omnicef given her allergies to quinolones and sulfa. 9. Microcytic Anemia: Per patient, she has been told in the past that she is anemic. Last value in our EMR was over 3 years ago. Although her Hgb is low, it is stable. FOBT negative; iron studies suggest a mixed picture, which I suspect is iron deficiency plus the side effects of her cellcept. Will start ferrous sulfate at discharge. 10. Central chest/epigastric pain on 06/05: EKG and trops unremarkable; likely GI in nature; now resolved. DVT prophylaxis: Heparin PHYSICAL EXAMINATION ON DISCHARGE: VITAL SIGNS: Vital Signs Date Time Temp Pulse Resp B/P (MAP) Pulse Ox O2 Delivery O2 Flow Rate FiO2 06/07/17 09:30 Room Air 06/07/17 06:00 96.7 79 18 156/67 (96) 98 General: Awake, Alert, no acute distress HEENT: Normo cephalic, atraumatic, moist mucous membranes CV: Regular rate and rhythm Lungs: Clear to auscultation bilaterally Abd: Soft, nontender, nondistended Extremities: No edema Neuro: Alert and oriented 3, normal speech Psych: Normal mood and affect DISPOSITION: Home DISCHARGE INSTRUCTIONS: Follow-up with PCP this week. Keep a log of your finger sticks and take it to your PCP for further guidance on insulin. Do not take your CellCept until you have finished taking the Omnicef. If symptoms return, or if you experience worsening of your symptoms, please call your doctor or return to the emergency department. ITEMS THAT NEED OUTPATIENT FOLLOWUP: CT chest does show diffusely enlarged lymph nodes. She'll need follow-up with her primary physicians after adequate treatment for her pneumonia to ensure that these resolve and are simply related to the infection. Patient was seen and examined by me on the day of discharge, and I spent a total time of greater than 30 minutes on this discharge. Vital Signs/I&Os Vital Signs Date Time Temp Pulse Resp B/P (MAP) Pulse Ox O2 Delivery O2 Flow Rate FiO2 06/07/17 09:30 Room Air 06/07/17 06:00 96.7 79 18 156/67 (96) 98 I&O- Last 24 Hours up to 6 AM 06/07/17 06:00 Intake Total 850 ml Output Total 1350 ml Balance -500 ml Laboratory Data Labs 24H Laboratory Tests 2 06/06/17 16:43: Bedside Glucose (Misc Panel) 142H 06/06/17 21:42: Bedside Glucose (Misc Panel) 202H 06/07/17 06:23: White Blood Count 5.2, Red Blood Count 3.64L, Hemoglobin 8.4L, Hematocrit 28.9L , Mean Corpuscular Volume 79.2L, Mean Corpuscular Hemoglobin 23.0L, Mean Corpuscular Hemoglobin Concent 29.0L, Red Cell Distribution Width 16.4H, Platelet Count 489H, Neutrophils (%) (Auto) 77.9H, Lymphocytes (%) (Auto) 13.1L , Monocytes (%) (Auto) 2.1, Eosinophils (%) (Auto) 5.6H, Basophils (%) (Auto) 0.3, Neutrophils # (Auto) 4.1, Lymphocytes # (Auto) 0.7L, Monocytes # (Auto) 0.1 , Eosinophils # (Auto) 0.3, Basophils # (Auto) 0.0, Large Unclassified Cells % 0.9, Large Unclassified Cells # 0.1, Anion Gap 8, Glomerular Filtration Rate > 60.0, Blood Urea Nitrogen 8, Creatinine 0.41L, Sodium Level 140, Potassium Level 4.1, Chloride Level 105, Carbon Dioxide Level 27, Calcium Level 8.6L, Aspartate Amino Transf (AST/SGOT) 26, Alanine Aminotransferase (ALT/SGPT) 15, Alkaline Phosphatase 147H, Total Bilirubin 0.2, Total Protein 6.6, Albumin 2.2L , Magnesium Level 2.1, Albumin/Globulin Ratio 0.50L CBC/BMP Laboratory Tests 06/07/17 06:23 Red Blood Count 3.64 L, Mean Corpuscular Volume 79.2 L, Mean Corpuscular Hemoglobin 23.0 L, Mean Corpuscular Hemoglobin Concent 29.0 L, Red Cell Distribution Width 16.4 H, Neutrophils (%) (Auto) 77.9 H, Lymphocytes (%) (Auto ) 13.1 L, Monocytes (%) (Auto) 2.1, Eosinophils (%) (Auto) 5.6 H, Basophils (%) (Auto) 0.3, Neutrophils # (Auto) 4.1, Lymphocytes # (Auto) 0.7 L, Monocytes # ( Auto) 0.1, Eosinophils # (Auto) 0.3, Basophils # (Auto) 0.0, Calcium Level 8.6 L , Aspartate Amino Transf (AST/SGOT) 26, Alanine Aminotransferase (ALT/SGPT) 15, Alkaline Phosphatase 147 H, Total Bilirubin 0.2, Total Protein 6.6, Albumin 2.2 L FSBS Laboratory Tests Test 06/06/17 16:43 06/06/17 21:42 Range/Units Bedside Glucose (Misc Panel) 142 202 80-115 MG/DL Microbiology Microbiology 06/04/17 Blood Culture - Preliminary, Resulted No Growth after 72 hours. All specime... 06/04/17 Blood Culture - Preliminary, Resulted No Growth after 72 hours. All specime... 06/01/17 Blood Culture - Final, Complete NO GROWTH AFTER 5 DAYS 06/01/17 Blood Culture - Final, Complete Corynebacterium Sp Possible Jk 06/06/17 Stool Occult Blood (JAMAAL) - Final, Complete 06/02/17 Respiratory Virus Panel (PCR) (JAMAAL) - Final, Complete 06/01/17 Urine Culture - Final, Complete Discharge Medications Scheduled Amitriptyline HCl (Amitriptyline HCl) 10 Mg Tab, 10 MG PO QHS, (Reported) Cefdinir (Cefdinir) 300 Mg Cap, 300 MG PO BID Cholecalciferol (Vitamin D) 400 Unit Cap, 400 UNIT PO DAILY, (Reported) Ferrous Sulfate (Ferrous Sulfate) 325 Mg Tab, 325 MG PO TID Furosemide (Furosemide) 40 Mg Tab, 40 MG PO DAILY, (Reported) PATIENT HASN'T BEEN TAKING THIS MEDICATION FOR ABOUT A WEEK BECAUSE THE MEDICATION WAS CAUSING DEHYDRATION. Insulin Aspart (Novolog) 100 U/Ml Inj, 1 DOSE SC ACS, (Reported) PER SLIDING SCALE: BS<140: TAKES 10 UNITS; BS>140: TAKES 12 UNITS Magnesium Oxide (Magnesium) 250 Mg Tab, 250 MG PO DAILY, (Reported) Mycophenolate Mofetil (Cellcept) 500 Mg Tab, 1,000 MG PO BID Hold this medication while taking omnicef; you can resume this once you finish the omnicef Potassium Chloride (Klor-Con M10) 10 Meq Tabcr, 10 MEQ PO DAILY, (Reported) Scheduled PRN Acetaminophen/Hydrocodone ([place] 5-325 mg) 1 Tab Tab, 1 TAB PO TID PRN for PAIN, (Reported) Albuterol Sulfate (Ventolin Hfa) 200 Puff/8 Gm Aers, 2 PUFF INH Q4H PRN for SHORTNESS OF BREATH, (Reported) Cyclobenzaprine HCl (Cyclobenzaprine HCl) 10 Mg Tab, 10 MG PO TID PRN for MUSCLE SPASMS, (Reported) Allergies Coded Allergies: Lisinopril (Verified Allergy, Severe, angioedema, 04/29/17) Aspirin (Verified Allergy, Unknown, 12/21/12) Latex (Verified Allergy, Unknown, 12/21/12) NSAIDs (Verified Allergy, Unknown, 12/21/12) Quinolones (Verified Allergy, Unknown, 12/21/12) Sulfa Drugs (Verified Allergy, Unknown, 04/29/17) Sulfa Drugs Cross Reactors (Verified Allergy, Unknown, 04/29/17) TAPE (Verified Allergy, Unknown, 12/25/13) Gabapentin (Unverified Adverse Reaction, Intermediate, VERY LETHARGIC, ) NE BARAJAS Jun 07, 2017 13:43
== END 2017-06-07 10:45 | disposition home or self-care (01) | DRG 720 ==
LOC: M ED 22:19 → EDBD 22:19 → M ED INP 06-02 01:24 → M PCU 06-02 15:10 → M MS5PR 06-04 18:22
PROVIDERS: ADMIT Internal Medicine; ATTEND Hospitalist
DX: A41.9 Sepsis, unspecified organism (principal); G93.40 Encephalopathy, unspecified; J18.9 Pneumonia, unspecified organism; E11.649 Type 2 diabetes mellitus with hypoglycemia without coma; J44.9 Chronic obstructive pulmonary disease, unspecified; D50.9 Iron deficiency anemia, unspecified; M06.9 Rheumatoid arthritis, unspecified; K21.9 Gastro-esophageal reflux disease without esophagitis; M81.0 Age-related osteoporosis without current pathological fracture; Z88.2 Allergy status to sulfonamides; Z88.8 Allergy status to other drugs, medicaments and biological substances; Z79.899 Other long term (current) drug therapy; Z88.6 Allergy status to analgesic agent; Z91.040 Latex allergy status; Z96.641 Presence of right artificial hip joint; Z96.642 Presence of left artificial hip joint; Z96.651 Presence of right artificial knee joint; Z96.652 Presence of left artificial knee joint

== ENCOUNTER → 2017-06-17 | Outpatient (CLI) | payer BC ==
[~2017-06-17] MED LIST changes: +ALBU17IN INH; +AMIT10TA PO; +CEFD300CAP PO; +CYCL10TA PO; +FERR325T3 PO; +FURO40TA2 PO; +INSUH10VL SC; +MAGN250T9 PO; -MYCOPHENOLATE MOFETIL 250 MG CAP (J7517) PO SCH; +NORC1TAB4 PO; +VITA-110 PO
[2017-06-17 13:15] LABS: BASO # 0.1 10^3/uL (0.0-0.2); BASO % 0.6 % (0.0-1.0); EOS # 0.1 10^3/uL (0.0-0.50); EOS % 0.7 % (0.0-3.0); IMMATURE GRANULOCYTE % 1.1 % (0-0); LYMPH # 0.6 10^3/uL (1.5-4.5); LYMPH % 7.5 % (24.0-44.0); MEAN CORPUSCULAR HGB CONC 29.7 g/dl (32.0-36.5); MEAN CORPUSCULAR VOLUME 77.5 fl (80.0-96.0); MONO # 0.4 10^3/uL (0.0-0.8); MONO % 4.6 % (0.0-5.0); NEUTROPHILS # 7.1 10^3/uL (1.8-7.7); NEUTROPHILS % 85.5 % (36.0-66.0); PLATELET COUNT, AUTOMATED 478 10^3/uL (150-450); RED CELL DISTRIBUTION WIDTH 17.5 % (11.5-14.5); WHITE BLOOD COUNT 8.3 10^3/uL (4.0-10.0)
[2017-06-17 13:37] LABS: ALBUMIN 2.6 GM/DL (3.2-5.2); ALBUMIN/GLOBULIN RATIO 0.57 (1.00-1.93); ALKALINE PHOSPHATASE 168 U/L (45-117); ALT/SGPT 13 U/L (12-78); ANION GAP 8 MEQ/L (8-16); AST/SGOT 15 U/L (15-37); BILIRUBIN,TOTAL 0.4 MG/DL (0.2-1.0); BLOOD UREA NITROGEN 11 MG/DL (7-18); CALCIUM LEVEL 8.6 MG/DL (8.8-10.2); CARBON DIOXIDE LEVEL 28 MEQ/L (21-32); CHLORIDE LEVEL 95 MEQ/L (98-107); CREATININE FOR GFR 0.69 MG/DL (0.55-1.02); GLOMERULAR FILTRATION RATE > 60.0 (>45); GLUCOSE, FASTING 383 MG/DL (80-110); POTASSIUM SERUM 4.3 MEQ/L (3.5-5.1); SODIUM LEVEL 131 MEQ/L (136-145); TOTAL PROTEIN 7.2 GM/DL (6.4-8.2)
== END ==
LOC: M LAB 11:55
PROVIDERS: ATTEND Family Medicine
DX: R50.9 Fever, unspecified (principal)

== ENCOUNTER → 2017-06-17 | Outpatient (REF) | payer BC | LOC: M LAB REF 13:15 | PROVIDERS: ATTEND Family Medicine | DX: R50.9 Fever, unspecified (principal); J02.9 Acute pharyngitis, unspecified ==

== ENCOUNTER → 2017-07-04 | Outpatient (CLI) | payer BC | LOC: M WUC 16:25 | PROVIDERS: ATTEND Family Medicine | DX: R50.9 Fever, unspecified (principal); M05.40 Rheumatoid myopathy with rheumatoid arthritis of unspecified site ==

== ENCOUNTER → 2017-07-12 | Outpatient (REF) | payer BC ==
[2017-07-12 12:45] LABS: BASO % 0.5 % (0.0-1.0); EOS # 0.4 10^3/uL (0.0-0.50); EOS % 5.5 % (0.0-3.0); IMMATURE GRANULOCYTE % 0.8 % (0-0); LYMPH # 0.7 10^3/uL (1.5-4.5); LYMPH % 10.1 % (24.0-44.0); MEAN CORPUSCULAR HEMOGLOBIN 23.5 pg (27.0-33.0); MEAN CORPUSCULAR HGB CONC 29.6 g/dl (32.0-36.5); MEAN CORPUSCULAR VOLUME 79.1 fl (80.0-96.0); MONO # 0.4 10^3/uL (0.0-0.8); MONO % 5.4 % (0.0-5.0); NEUTROPHILS # 5.1 10^3/uL (1.8-7.7); NEUTROPHILS % 77.7 % (36.0-66.0); PLATELET COUNT, AUTOMATED 617 10^3/uL (150-450); RED CELL DISTRIBUTION WIDTH 18.5 % (11.5-14.5); WHITE BLOOD COUNT 6.5 10^3/uL (4.0-10.0)
[2017-07-12 13:14] LABS: ALBUMIN 2.8 GM/DL (3.2-5.2); ALBUMIN/GLOBULIN RATIO 0.62 (1.00-1.93); ALKALINE PHOSPHATASE 140 U/L (45-117); ALT/SGPT 10 U/L (12-78); ANION GAP 10 MEQ/L (8-16); AST/SGOT 14 U/L (15-37); BILIRUBIN,TOTAL 0.2 MG/DL (0.2-1.0); BLOOD UREA NITROGEN 7 MG/DL (7-18); CALCIUM LEVEL 9.4 MG/DL (8.8-10.2); CARBON DIOXIDE LEVEL 27 MEQ/L (21-32); CHLORIDE LEVEL 98 MEQ/L (98-107); CREATININE FOR GFR 0.55 MG/DL (0.55-1.02); GLOMERULAR FILTRATION RATE > 60.0 (>45); GLUCOSE, FASTING 256 MG/DL (80-110); POTASSIUM SERUM 4.6 MEQ/L (3.5-5.1); SODIUM LEVEL 135 MEQ/L (136-145); TOTAL PROTEIN 7.3 GM/DL (6.4-8.2)
== END ==
LOC: M LABDRAW1 11:53
PROVIDERS: ATTEND Family Medicine
DX: J18.9 Pneumonia, unspecified organism (principal)

== ENCOUNTER → 2017-08-15 | Outpatient (CLI) | payer BC ==
[2017-08-15 20:37] LABS: BASO % 0.4 % (0.0-1.0); EOS # 0.1 10^3/uL (0.0-0.50); EOS % 0.7 % (0.0-3.0); IMMATURE GRANULOCYTE % 0.4 % (0-0); LYMPH # 0.6 10^3/uL (1.5-4.5); LYMPH % 8.6 % (24.0-44.0); MEAN CORPUSCULAR HEMOGLOBIN 23.2 pg (27.0-33.0); MEAN CORPUSCULAR HGB CONC 29.3 g/dl (32.0-36.5); MONO # 0.3 10^3/uL (0.0-0.8); MONO % 3.7 % (0.0-5.0); NEUTROPHILS # 6.1 10^3/uL (1.8-7.7); NEUTROPHILS % 86.2 % (36.0-66.0); PLATELET COUNT, AUTOMATED 408 10^3/uL (150-450); RED CELL DISTRIBUTION WIDTH 17.5 % (11.5-14.5); RETIC HEMOGLOBIN EQUIVALENT 26.8 pg (24-36); WHITE BLOOD COUNT 7.1 10^3/uL (4.0-10.0)
[2017-08-15 21:32] LABS: PERCENT SATURATION 9.1 % (13.2-45.0)
[2017-08-15 21:37] LABS: FOLATE 4.4 NG/ML
== END ==
LOC: M WUC 15:34
PROVIDERS: ATTEND Family Medicine
DX: D64.9 Anemia, unspecified (principal)

== ENCOUNTER → 2017-08-15 | Outpatient (CLI) | payer BC ==
[2017-08-15 21:29] LABS: ANION GAP 10 MEQ/L (8-16); BLOOD UREA NITROGEN 12 MG/DL (7-18); CALCIUM LEVEL 9.5 MG/DL (8.8-10.2); CARBON DIOXIDE LEVEL 29 MEQ/L (21-32); CHLORIDE LEVEL 94 MEQ/L (98-107); CREATININE FOR GFR 0.59 MG/DL (0.55-1.02); GLOMERULAR FILTRATION RATE > 60.0 (>45); GLUCOSE, FASTING 245 MG/DL (80-110); POTASSIUM SERUM 4.9 MEQ/L (3.5-5.1); SODIUM LEVEL 133 MEQ/L (136-145)
== END ==
LOC: M WUC 15:41
PROVIDERS: ATTEND Nurse Practitioner Family
DX: E11.65 Type 2 diabetes mellitus with hyperglycemia (principal)

== ENCOUNTER → 2017-09-22 | Outpatient (CLI) | payer BC | LOC: M WUC 14:10 | DX: R05 Cough (principal) | CPT/HCPCS: 71046 ==

== ENCOUNTER → 2017-09-24 | Outpatient (CLI) | payer BC ==
[2017-09-24 14:44] LABS: BASO # 0.1 10^3/uL (0.0-0.2); BASO % 0.5 % (0.0-1.0); EOS # 0.1 10^3/uL (0.0-0.50); EOS % 0.8 % (0.0-3.0); HEMATOCRIT 34.6 % (36.0-47.0); HEMOGLOBIN 10.6 g/dl (12.0-16.0); IMMATURE GRANULOCYTE # 0.1 10^3/uL (0-0); IMMATURE GRANULOCYTE % 0.7 % (0-0); LYMPH # 0.8 10^3/uL (1.5-4.5); LYMPH % 7.6 % (24.0-44.0); MEAN CORPUSCULAR HEMOGLOBIN 23.3 pg (27.0-33.0); MEAN CORPUSCULAR HGB CONC 30.6 g/dl (32.0-36.5); MEAN CORPUSCULAR VOLUME 76.2 fl (80.0-96.0); MONO # 0.4 10^3/uL (0.0-0.8); MONO % 3.7 % (0.0-5.0); NEUTROPHILS # 9.3 10^3/uL (1.8-7.7); NEUTROPHILS % 86.7 % (36.0-66.0); PLATELET COUNT, AUTOMATED 487 10^3/uL (150-450); RED BLOOD COUNT 4.54 10^6/uL (4.00-5.40); RED CELL DISTRIBUTION WIDTH 16.7 % (11.5-14.5); WHITE BLOOD COUNT 10.7 10^3/uL (4.0-10.0)
== END ==
LOC: M WUC 12:39
DX: R68.83 Chills (without fever) (principal); R63.4 Abnormal weight loss
CPT/HCPCS: 85025

== ENCOUNTER → 2017-09-30 | Outpatient (CLI) | payer BC | LOC: M WUC 08:00 | DX: D64.9 Anemia, unspecified (principal); Z53.9 Procedure and treatment not carried out, unspecified reason ==

== ENCOUNTER → 2017-09-30 | Outpatient (CLI) | payer BC | LOC: M WUC 08:00 | DX: Z79.899 Other long term (current) drug therapy (principal); Z53.9 Procedure and treatment not carried out, unspecified reason ==

== ENCOUNTER → 2017-10-03 | Outpatient (CLI) | payer BC ==
[2017-10-03 17:48] LABS: BASO # 0.1 10^3/uL (0.0-0.2); BASO % 0.5 % (0.0-1.0); EOS # 0.2 10^3/uL (0.0-0.50); EOS % 2.1 % (0.0-3.0); HEMATOCRIT 32.9 % (36.0-47.0); IMMATURE GRANULOCYTE # 0.1 10^3/uL (0-0); IMMATURE GRANULOCYTE % 0.8 % (0-0); LYMPH # 0.9 10^3/uL (1.5-4.5); LYMPH % 10.1 % (24.0-44.0); MEAN CORPUSCULAR HEMOGLOBIN 23.5 pg (27.0-33.0); MEAN CORPUSCULAR HGB CONC 30.4 g/dl (32.0-36.5); MEAN CORPUSCULAR VOLUME 77.2 fl (80.0-96.0); MONO # 0.4 10^3/uL (0.0-0.8); MONO % 4.1 % (0.0-5.0); NEUTROPHILS # 7.6 10^3/uL (1.8-7.7); NEUTROPHILS % 82.4 % (36.0-66.0); PLATELET COUNT, AUTOMATED 554 10^3/uL (150-450); RED BLOOD COUNT 4.26 10^6/uL (4.00-5.40); RED CELL DISTRIBUTION WIDTH 17.6 % (11.5-14.5); RETICULOCYTE # 93.3 10^9/L (17-77); RETICULOCYTE % 2.2 % (0.5-1.5); WHITE BLOOD COUNT 9.2 10^3/uL (4.0-10.0)
[2017-10-03 18:05] LABS: FERRITIN 671 NG/ML (8-252); IRON (FE) 24 UG/DL (50-170); PERCENT SATURATION 14.1 % (13.2-45.0); TOTAL IRON BINDING CAPACITY 170 UG/DL (250-450)
[2017-10-03 18:35] LABS: URINE TOTAL PROTEIN 12.7 MG/DL (0-12)
[2017-10-03 18:37] LABS: FOLATE 8.6 NG/ML (>5.4)
[2017-10-07 10:24] LABS: UPEP INTERPRETATION NO M-SPIKE NOTED; URINE VOLUME RANDOM ML
[2017-10-07 10:53] LABS: ALBUMIN % 42.9 % (55.8-66.1); ALPHA-1-GLOBULIN % 8.4 % (2.9-4.9); ALPHA-2-GLOBULINS % 16.3 % (7.1-11.8); BETA-1-GLOBULINS % 6.2 % (4.7-7.2); BETA-2-GLOBULINS % 8.3 % (3.2-6.5); GAMMA GLOBULIN % 17.9 % (11.1-18.8)
[2017-10-07 10:54] LABS: ALPHA-1-GLOBULINS 0.59 GM/DL (0.17-0.41); ALPHA-2-GLOBULINS 1.14 GM/DL (0.42-0.99); BETA-1-GLOBULINS 0.43 GM/DL (0.28-0.60); BETA-2-GLOBULINS 0.58 GM/DL (0.19-0.55); GAMMA GLOBULINS 1.25 GM/DL (0.65-1.58)
[2017-10-07 14:16] LABS: METHYLMALONIC ACID 309 nmol/L (0-378)
== END ==
LOC: M WUC 13:41
DX: D64.9 Anemia, unspecified (principal)
CPT/HCPCS: 82746

== ENCOUNTER → 2017-10-03 | Outpatient (CLI) | payer BC ==
[2017-10-03 17:48] LABS: BASO % 0.4 % (0.0-1.0); EOS # 0.2 10^3/uL (0.0-0.50); EOS % 2.2 % (0.0-3.0); HEMATOCRIT 33.2 % (36.0-47.0); HEMOGLOBIN 10.1 g/dl (12.0-16.0); IMMATURE GRANULOCYTE # 0.1 10^3/uL (0-0); IMMATURE GRANULOCYTE % 0.8 % (0-0); LYMPH # 0.9 10^3/uL (1.5-4.5); LYMPH % 9.9 % (24.0-44.0); MEAN CORPUSCULAR HEMOGLOBIN 23.6 pg (27.0-33.0); MEAN CORPUSCULAR HGB CONC 30.4 g/dl (32.0-36.5); MEAN CORPUSCULAR VOLUME 77.6 fl (80.0-96.0); MONO # 0.4 10^3/uL (0.0-0.8); MONO % 4.4 % (0.0-5.0); NEUTROPHILS # 7.6 10^3/uL (1.8-7.7); NEUTROPHILS % 82.3 % (36.0-66.0); PLATELET COUNT, AUTOMATED 549 10^3/uL (150-450); RED BLOOD COUNT 4.28 10^6/uL (4.00-5.40); RED CELL DISTRIBUTION WIDTH 17.2 % (11.5-14.5); WHITE BLOOD COUNT 9.2 10^3/uL (4.0-10.0)
[2017-10-03 18:46] LABS: ERYTHROCYTE SEDIMENTATION RATE 87 mm/hr (0-30)
[2017-10-03 19:15] LABS: ALBUMIN 2.8 GM/DL (3.2-5.2); ALBUMIN/GLOBULIN RATIO 0.67 (1.00-1.93); ALKALINE PHOSPHATASE 148 U/L (45-117); ALT/SGPT 10 U/L (12-78); ANION GAP 7 MEQ/L (8-16); AST/SGOT 17 U/L (7-37); BILIRUBIN,TOTAL 0.2 MG/DL (0.2-1.0); BLOOD UREA NITROGEN 10 MG/DL (7-18); CARBON DIOXIDE LEVEL 28 MEQ/L (21-32); CHLORIDE LEVEL 101 MEQ/L (98-107); CREATININE FOR GFR 0.56 MG/DL (0.55-1.02); GLOMERULAR FILTRATION RATE > 60.0 (>45); GLUCOSE, FASTING 133 MG/DL (80-110); POTASSIUM SERUM 4.3 MEQ/L (3.5-5.1); SODIUM LEVEL 136 MEQ/L (136-145)
== END ==
LOC: M WUC 13:49
DX: Z51.81 Encounter for therapeutic drug level monitoring (principal); Z79.899 Other long term (current) drug therapy
CPT/HCPCS: 80053

== ENCOUNTER → 2017-10-27 | Outpatient (REF) | payer BC ==
[2017-10-27 14:14] LABS: RETIC HEMOGLOBIN EQUIVALENT 27.5 pg (24-36); RETICULOCYTE # 65.1 10^9/L (17-77); RETICULOCYTE % 1.5 % (0.5-1.5)
[2017-10-27 14:42] LABS: C REACTIVE PROTEIN QUANTITATIV 9.49 MG/DL (0.00-0.30)
[2017-10-29 00:06] LABS: SOLUBLE TRANSFERRIN RECEPTOR 23.4 nmol/L (12.2-27.3)
[2017-10-29 00:06] LABS: ANTINUCLEAR ANTIBODIES DIRECT Negative (Negative); FREE KAPPA LIGHT CHAINS SERUM 95.6 mg/L (3.3-19.4); FREE LAMBDA LIGHT CHAINS SERUM 36.2 mg/L (5.7-26.3); HAPTOGLOBIN 416 mg/dL (34-200); KAPPA/LAMBDA RATIO SERUM 2.64 (0.26-1.65)
== END ==
LOC: M LAB REF 13:28
DX: D64.9 Anemia, unspecified (principal)
CPT/HCPCS: 83010

== ENCOUNTER → 2017-11-24 | Outpatient (REF) | payer BC | LOC: M LAB REF 12:39 | DX: D64.9 Anemia, unspecified (principal) | CPT/HCPCS: 88300 ==

== ENCOUNTER → 2017-11-25 | Outpatient (CLI) | payer BC | LOC: M WUC 11:15 | DX: R05 Cough (principal) ==

== ENCOUNTER → 2017-12-01 | Outpatient (REF) | payer BC ==
[2017-12-06 00:07] LABS: HEMOGLOBIN A 97.8 % (96.4-98.8); HEMOGLOBIN A2 2.2 % (1.8-3.2); HGB SOLUBILITY Negative (Negative)
== END ==
LOC: M LAB REF 17:45
DX: D64.9 Anemia, unspecified (principal)
CPT/HCPCS: 83021

== ENCOUNTER → 2017-12-19 | Outpatient (CLI) | payer BC | LOC: M WUC 15:03 | DX: J18.9 Pneumonia, unspecified organism (principal); J84.10 Pulmonary fibrosis, unspecified | CPT/HCPCS: 71046 ==

== ENCOUNTER → 2018-01-02 | Outpatient (REF) | payer BC ==
[2018-01-02 18:23] LABS: FERRITIN 411 NG/ML (8-252); IRON (FE) 16 UG/DL (50-170); PERCENT SATURATION 7.6 % (13.2-45.0); TOTAL IRON BINDING CAPACITY 210 UG/DL (250-450)
== END ==
LOC: M LAB REF 17:26
DX: D64.9 Anemia, unspecified (principal)
CPT/HCPCS: 83550

== ENCOUNTER → 2018-02-10 | Outpatient (REF) | payer BC ==
[2018-02-10 13:47] LABS: FERRITIN 311 NG/ML (8-252); IRON (FE) 47 UG/DL (50-170); PERCENT SATURATION 19.7 % (13.2-45.0); TOTAL IRON BINDING CAPACITY 239 UG/DL (250-450)
[2018-02-10 13:54] LABS: INR 0.89; PARTIAL THROMBOPLASTIN TIME 30.7 SECONDS (26.8-37.9); PROTHROMBIN TIME 12.1 SECONDS (12.4-14.5)
== END ==
LOC: M LAB REF 13:27
DX: D64.9 Anemia, unspecified (principal)
CPT/HCPCS: 83550

== ENCOUNTER → 2018-02-21 | Outpatient (CLI) | payer BC ==
[~2018-02-21] MED LIST changes: -/ADVA50050 INH; -/RISE35TA PO; -ALBU17IN INH; -AMIT10TA PO; -AMIT25TA2 PO; -CEFD300CAP PO; -CELL500T PO; -CLAR5CHW PO; -CLIN150C OR; +CLINDAMYCIN 600 MG/50 ML PREMIX BAG As Ordered; -CYCL10TA PO; -DELTASONE PO; -FERR325T3 PO; -FLEXERIL PO; -FURO40TA2 PO; -INSUDET SC; -INSUH10VL SC; -LASI40TA PO; +LIDOCAINE 2% MDV 20 ML VIAL As Ordered; -LISI10TA4 PO; -MAGN250T9 PO; -MICA80TA PO; +MIDAZOLAM INJ 2 MG/2 ML VIAL (J2250) As Ordered; -NORC1TAB4 PO; -NORCO PO; -NOVOLOG100 MG/ML SQ; -POTA10CA PO; -PRED1TA PO; -PRIL20CA OR; -SING10TA31 PO; -SLOWTAB OR; -VICO5TAB PO; -VITA-110 PO; -VITAMIN D50000 UNT PO; -cellcept PO; +fentaNYL 100 MCG/2 ML INJECTION (J3010) As Ordered; -levemir SQ; -potassium PO
== END | disposition home or self-care (01) ==
LOC: M IRPRO 12:32
DX: M06.9 Rheumatoid arthritis, unspecified (principal); D63.8 Anemia in other chronic diseases classified elsewhere; J44.9 Chronic obstructive pulmonary disease, unspecified; E11.9 Type 2 diabetes mellitus without complications; Z79.4 Long term (current) use of insulin; K21.9 Gastro-esophageal reflux disease without esophagitis; M81.0 Age-related osteoporosis without current pathological fracture; Z77.22 Contact with and (suspected) exposure to environmental tobacco smoke (acute) (chronic)
CPT/HCPCS: 36561

== ENCOUNTER → 2018-03-17 | Outpatient (CLI) | payer BC ==
[2018-03-21 00:07] LABS: TISSUE TRANSGLUTAMINASE IgA <2 U/mL (0-3)
== END ==
LOC: M LAB 14:37
DX: D50.9 Iron deficiency anemia, unspecified (principal)
CPT/HCPCS: 82784

== ENCOUNTER 2018-03-23 13:32 | Emergency (ER) | payer BC ==
[2018-03-23] MEDS: oxyCODONE 5MG TAB PO (16:14)
== END 2018-03-23 17:36 | disposition home or self-care (01) ==
LOC: M ED 13:32
DX: T14.8XXA Other injury of unspecified body region, initial encounter (principal); S01.21XA Laceration without foreign body of nose, initial encounter; W01.0XXA Fall on same level from slipping, tripping and stumbling without subsequent striking against object, initial encounter; Y92.59 Other trade areas as the place of occurrence of the external cause; M06.9 Rheumatoid arthritis, unspecified; J44.9 Chronic obstructive pulmonary disease, unspecified; K21.9 Gastro-esophageal reflux disease without esophagitis; D50.9 Iron deficiency anemia, unspecified; Z79.899 Other long term (current) drug therapy; Z79.4 Long term (current) use of insulin; Z88.8 Allergy status to other drugs, medicaments and biological substances; Z88.6 Allergy status to analgesic agent; Z88.1 Allergy status to other antibiotic agents; Z88.2 Allergy status to sulfonamides; Z91.040 Latex allergy status; Z91.048 Other nonmedicinal substance allergy status; Z96.651 Presence of right artificial knee joint
CPT/HCPCS: 73130

== ENCOUNTER → 2018-04-07 | Outpatient (REF) | payer BC ==
[2018-04-07 14:21] LABS: FERRITIN 373 NG/ML (8-252); IRON (FE) 56 UG/DL (50-170); PERCENT SATURATION 27.7 % (13.2-45.0); TOTAL IRON BINDING CAPACITY 202 UG/DL (250-450)
== END ==
LOC: M LAB REF 13:11
DX: D64.9 Anemia, unspecified (principal)

== ENCOUNTER → 2018-04-14 | Outpatient (CLI) | payer BC | LOC: M WUC 15:16 | DX: R06.02 Shortness of breath (principal); J84.10 Pulmonary fibrosis, unspecified | CPT/HCPCS: 71046 ==

== ENCOUNTER 2018-04-27 08:57 | Day surgery (SDC) | payer BC ==
[~2018-04-27 08:57] MED LIST changes: -CLINDAMYCIN 600 MG/50 ML PREMIX BAG As Ordered; +LIDOCAINE 2% INJ 100 MG/5 ML SDV (FOR ANES.) As Ordered; -LIDOCAINE 2% MDV 20 ML VIAL As Ordered; -MIDAZOLAM INJ 2 MG/2 ML VIAL (J2250) As Ordered; +PROPOFOL 200 MG/20 ML VIAL As Ordered; -fentaNYL 100 MCG/2 ML INJECTION (J3010) As Ordered
[2018-04-27] MEDS: NS 1,000 ML IV (09:28)
[2018-04-27] MEDS ORDERED: PROPOFOL 200 MG/20 ML VIAL As Ordered (10:48)
== END 2018-04-27 11:35 | disposition home or self-care (01) ==
LOC: M OPP 08:57
DX: D50.9 Iron deficiency anemia, unspecified (principal); D12.1 Benign neoplasm of appendix; K22.2 Esophageal obstruction; K44.9 Diaphragmatic hernia without obstruction or gangrene; R60.0 Localized edema; M06.9 Rheumatoid arthritis, unspecified; I10 Essential (primary) hypertension; E11.9 Type 2 diabetes mellitus without complications; K21.9 Gastro-esophageal reflux disease without esophagitis; R12 Heartburn; M54.9 Dorsalgia, unspecified; M81.0 Age-related osteoporosis without current pathological fracture; Z78.0 Asymptomatic menopausal state; J45.909 Unspecified asthma, uncomplicated; J44.9 Chronic obstructive pulmonary disease, unspecified; R06.02 Shortness of breath; Z92.21 Personal history of antineoplastic chemotherapy; Z96.653 Presence of artificial knee joint, bilateral; Z96.643 Presence of artificial hip joint, bilateral; Z96.611 Presence of right artificial shoulder joint; Z96.612 Presence of left artificial shoulder joint; Z88.8 Allergy status to other drugs, medicaments and biological substances; Z88.0 Allergy status to penicillin; Z88.1 Allergy status to other antibiotic agents; Z88.2 Allergy status to sulfonamides; Z91.040 Latex allergy status; Z91.048 Other nonmedicinal substance allergy status; Z79.899 Other long term (current) drug therapy; Z79.4 Long term (current) use of insulin; Z80.0 Family history of malignant neoplasm of digestive organs
CPT/HCPCS: 45380

== ENCOUNTER → 2018-11-15 | Outpatient (CLI) | payer BC ==
[~2018-11-15] MED LIST changes: +/ADVA50050 INH; +/RISE35TA PO; +ALBU17IN INH; +AMIT10TA PO; +AMIT25TA2 PO; +CEFD300CAP PO; +CELL500T PO; +CLAR5CHW PO; +CLIN150C OR; +CYCL10TA PO; +DELTASONE PO; +FERR325T3 PO; +FLEXERIL PO; +FURO40TA2 PO; +INSUDET SC; +INSUH10VL SC; +KLOR10TA76 PO; +LASI40TA PO; -LIDOCAINE 2% INJ 100 MG/5 ML SDV (FOR ANES.) As Ordered; +LISI10TA4 PO; +MAGN250T9 PO; +MICA80TA PO; +NORC1TAB4 PO; +NORCO PO; +NOVOLOG100 MG/ML SQ; +PRED1TA PO; +PRIL20CA OR; -PROPOFOL 200 MG/20 ML VIAL As Ordered; +RITUXIN IV; +SING10TA31 PO; +SLOWTAB OR; +VENTAER INH; +VICO5TAB PO; +VITA-110 PO; +VITAMIN D50000 UNT PO; +cellcept PO; +levemir SQ; +potassium PO
--- NOTE | 2018-11-15 16:48 | REP ---
CT chest without contrast: High resolution protocol. History: Abnormal lung field findings. Comparison chest CT study June 02, 2017. Comparison chest x-ray is from April 14, 2018. Technique: High resolution 1 mm axial images are generated and viewed at lung window settings. Multiplanar reformation and maximal intensity projection images are included. CT findings: There is a right-sided [id number] catheter noted in place. The patient is status post bilateral shoulder replacements. There is some metallic spray artifact across the intrathoracic soft tissues from the metallic prosthetic components which unfortunately, the patient could not raise above her head during the exam. There is a large calcific pleural plaque posteriorly on the right with some adjacent subpleural fibrosis. The right base subsegmental bronchi are just subpleural in location associated with this. No mass lesion is seen here. There is mild traction bronchiectasis in the left upper lobe with peribronchial thickening anteriorly. There is a 4 mm pulmonary nodule in the left upper lobe on image number 137 of 281 in series 201 of today's study. This does not appear to be calcified. There is another 4 mm nodule in the left posterior gutter in the lower lobe on page 210 of 281 of today's study. There is an area of linear fibrosis in the right middle lobe anterolaterally associated with noncalcific pleural plaquing. There is no evidence of diffuse interstitial fibrosis. Degenerative changes are seen in the thoracolumbar spine segments. There is mitral annular calcification. Some vascular calcification is noted as well. Impression: Pleural plaquing and pleuroparenchymal fibrosis in the bases bilaterally. There are two small 4 mm noncalcified pulmonary nodules on the left. There is a small zone of traction bronchiectasis in the left upper lobe. Bilateral prosthetic shoulders with associated metallic spray artifact. Electronically Signed by Bill Johnson MD 11/15/2018 04:54 P
== END ==
LOC: M RAD 14:38
PROVIDERS: ATTEND Internal Medicine Pulmonary Disease
DX: R91.8 Other nonspecific abnormal finding of lung field (principal)

== ENCOUNTER → 2019-02-01 | Outpatient (REF) | payer BC ==
[~2019-02-01] MED LIST changes: -/ADVA50050 INH; +ADVA1AER2 INH; +MS C15TA8 PO; -NORC1TAB4 PO; +NORC1TAB7 PO; +VITA400T15 PO
== END ==
LOC: M LAB REF 17:23
PROVIDERS: ATTEND Internal Medicine Pulmonary Disease
DX: J47.9 Bronchiectasis, uncomplicated (principal)

== ENCOUNTER → 2019-02-07 | Outpatient (REF) | payer BC ==
[2019-02-13 00:06] LABS: ASPERGILLUS FLAVUS ABY Negative (Neg:<1:1); ASPERGILLUS FUMIGATUS ABY Negative (Neg:<1:1); ASPERGILLUS GALACTOMANNAN AG 0.05 Index (0.00-0.49); ASPERGILLUS NIGER ABY Negative (Neg:<1:1); BLASTOMYCES ABY Negative (Neg:<1:1); HISTOPLASMA ABY Negative (Neg:<1:1)
== END ==
LOC: M LAB REF 15:09
PROVIDERS: ATTEND Internal Medicine Pulmonary Disease
DX: M05.1 Rheumatoid lung disease with rheumatoid arthritis (principal)

== ENCOUNTER → 2019-02-16 | Outpatient (CLI) | payer BC ==
--- NOTE | 2019-02-16 16:06 | REP ---
Clinical: History of pulmonary fibrosis. Technique: PA and lateral. Comparison: 04/14/2018. Findings: Mediastinum and cardiac silhouette are within normal limits. [id number] identified with tip in the SVC. Lung mitchell demonstrate chronic interstitial changes which remain stable. No acute consolidation, effusion, or pneumothorax skeletal structures demonstrate osteopenia and degenerative changes along with bilateral shoulder replacements. Impression: Chronic stable changes. Electronically Signed by Joseph Ibarra MD 02/16/2019 03:58 P
== END ==
LOC: M WUC 15:47
PROVIDERS: ATTEND Physician Assistant
DX: M85.88 Other specified disorders of bone density and structure, other site (principal); J84.10 Pulmonary fibrosis, unspecified; Z97.8 Presence of other specified devices

== ENCOUNTER → 2019-03-12 | Outpatient (REF) | payer BC ==
[2019-03-12 16:10] LABS: ALBUMIN 3.3 GM/DL (3.2-5.2); BLOOD UREA NITROGEN 12 MG/DL (7-18); CALCIUM LEVEL 8.6 MG/DL (8.8-10.2); CARBON DIOXIDE LEVEL 28 MEQ/L (21-32); CHLORIDE LEVEL 104 MEQ/L (98-107); CHOLESTEROL LEVEL 144 MG/DL (<200); CREATININE FOR GFR 0.49 MG/DL (0.55-1.30); GLOMERULAR FILTRATION RATE > 60.0 (>45); GLUCOSE, FASTING 110 MG/DL (70-100); HDL CHOLESTEROL 46 MG/DL (>40); LDL CHOLESTEROL 62 MG/DL (<100); NON-HDL-C 98 MG/DL; PHOSPHORUS LEVEL 4.6 MG/DL (2.5-4.9); POTASSIUM SERUM 4.4 MEQ/L (3.5-5.1); SODIUM LEVEL 138 MEQ/L (136-145); TRIGLYCERIDES LEVEL 178 MG/DL (<150)
[2019-03-12 16:19] LABS: TOTAL 25(OH) VITAMIN D 42.8 NG/ML (30.0-100.0)
[2019-03-12 16:53] LABS: HEMOGLOBIN A1c 7.6 %
== END ==
LOC: M LAB REF 14:57
PROVIDERS: ATTEND Nurse Practitioner Family
DX: R60.9 Edema, unspecified (principal); E11.69 Type 2 diabetes mellitus with other specified complication; Z13.21 Encounter for screening for nutritional disorder

== ENCOUNTER → 2019-03-12 | Outpatient (REF) | payer BC ==
[2019-03-12 16:10] LABS: ALBUMIN 3.2 GM/DL (3.2-5.2); ALT/SGPT 13 U/L (12-78); BILIRUBIN,TOTAL 0.2 MG/DL (0.2-1.0); BLOOD UREA NITROGEN 12 MG/DL (7-18); CARBON DIOXIDE LEVEL 28 MEQ/L (21-32); CHLORIDE LEVEL 104 MEQ/L (98-107); CHOLESTEROL LEVEL 143 MG/DL (<200); CHOLESTEROL RISK RATIO 3.325 (<5); CREATININE FOR GFR 0.44 MG/DL (0.55-1.30); GLOMERULAR FILTRATION RATE > 60.0 (>45); GLUCOSE, FASTING 110 MG/DL (70-100); HDL CHOLESTEROL 43 MG/DL (>40); LDL CHOLESTEROL 65 MG/DL (<100); NON-HDL-C 100 MG/DL; POTASSIUM SERUM 4.5 MEQ/L (3.5-5.1); SODIUM LEVEL 140 MEQ/L (136-145); TOTAL PROTEIN 7.1 GM/DL (6.4-8.2); TRIGLYCERIDES LEVEL 175 MG/DL (<150)
[2019-03-12 16:20] LABS: CREATININE, URINE 60.9 MG/DL; MALB URINE SIEMENS 12.1 MG/L; MAU/CREAT RATIO 19.8 MCG/MG (0.0-30.0)
== END ==
LOC: M LAB REF 14:58
PROVIDERS: ATTEND Nurse Practitioner Family
DX: E11.65 Type 2 diabetes mellitus with hyperglycemia (principal); E78.00 Pure hypercholesterolemia, unspecified

== ENCOUNTER → 2019-06-11 | Outpatient (REF) | payer BC ==
[2019-06-11 16:49] LABS: BASO % 0.4 % (0.0-1.0); EOS # 0.2 10^3/uL (0.0-0.5); EOS % 3.5 % (0.0-3.0); HEMATOCRIT 35.9 % (36.0-47.0); HEMOGLOBIN 11.1 g/dl (12.0-15.5); LYMPH # 0.7 10^3/uL (1.5-5.0); LYMPH % 16.3 % (24.0-44.0); MEAN CORPUSCULAR HEMOGLOBIN 25.3 pg (27.0-33.0); MEAN CORPUSCULAR HGB CONC 30.9 g/dl (32.0-36.5); MONO # 0.3 10^3/uL (0.0-0.8); MONO % 5.5 % (0.0-5.0); NEUTROPHILS # 3.4 10^3/uL (1.5-8.5); NEUTROPHILS % 74.1 % (36.0-66.0); PLATELET COUNT, AUTOMATED 290 10^3/uL (150-450); RED BLOOD COUNT 4.38 10^6/uL (4.00-5.40); WHITE BLOOD COUNT 4.5 10^3/uL (4.0-10.0)
[2019-06-11 16:56] LABS: ALBUMIN 3.2 GM/DL (3.2-5.2); ALT/SGPT 15 U/L (12-78); BILIRUBIN,TOTAL 0.5 MG/DL (0.2-1.0); BLOOD UREA NITROGEN 11 MG/DL (7-18); CALCIUM LEVEL 8.8 MG/DL (8.8-10.2); CARBON DIOXIDE LEVEL 29 MEQ/L (21-32); CHLORIDE LEVEL 102 MEQ/L (98-107); CREATININE FOR GFR 0.52 MG/DL (0.55-1.30); GLOMERULAR FILTRATION RATE > 60.0 (>45); GLUCOSE, FASTING 83 MG/DL (70-100); POTASSIUM SERUM 4.3 MEQ/L (3.5-5.1); SODIUM LEVEL 138 MEQ/L (136-145); TOTAL PROTEIN 7.3 GM/DL (6.4-8.2)
[2019-06-11 17:33] LABS: ERYTHROCYTE SEDIMENTATION RATE 62 mm/hr (0-30)
== END ==
LOC: M LAB REF 15:05
PROVIDERS: ATTEND Internal Medicine Rheumatology
DX: Z79.899 Other long term (current) drug therapy (principal); M05.79 Rheumatoid arthritis with rheumatoid factor of multiple sites without organ or systems involvement

== ENCOUNTER → 2019-08-09 | Outpatient (CLI) | payer BC ==
--- NOTE | 2019-08-09 16:41 | REP ---
BILATERAL LOWER EXTREMITY DUPLEX DOPPLER VENOUS ULTRASOUND WITH EVALUATION FOR VENOUS REFLUX: Real-time compression and duplex Doppler interrogation of bilateral lower extremity deep venous systems is performed. Bilaterally, common femoral, superficial femoral and popliteal veins are fully compressible with transducer pressure and demonstrate normal spontaneous and phasic flow without evidence of deep venous thrombosis. Evaluation for venous reflux is performed with the bed tipped. On the right no reflux is seen in any portion of the deep venous system. There is an anterior accessory greater saphenous vein present without reflux. There is no reflux in any portion of the greater saphenous vein which measures 7 mm at the saphenofemoral junction, 5 mm in the mid thigh and at the knee. There is no reflux in the lesser saphenous vein which measures 6 mm. On the left there is no reflux in any portion of the deep vein system. There is an anterior accessory greater saphenous vein present without reflux. There is no reflux in the greater saphenous vein, which measures 7 mm at the saphenofemoral junction, 5 mm at the mid thigh and 4 mm at the knee. There is no evidence of reflux in the lesser saphenous vein which measures 5 mm. Electronically Signed by Dennis Cantu MD 08/10/2019 04:58 P
== END ==
LOC: M RAD 12:04
PROVIDERS: ATTEND Nurse Practitioner Family
DX: R60.9 Edema, unspecified (principal)

== ENCOUNTER → 2020-01-15 | Outpatient (REF) | payer BC ==
[~2020-01-15] MED LIST changes: +CYCL-707 PO; -CYCL10TA PO
[2020-01-15 10:50] LABS: BASO % 0.3 % (0.0-1.0); EOS # 0.2 10^3/uL (0.0-0.5); EOS % 3.4 % (0.0-3.0); HEMATOCRIT 37.6 % (36.0-47.0); HEMOGLOBIN 11.6 g/dl (12.0-15.5); LYMPH # 0.7 10^3/uL (1.5-5.0); LYMPH % 11.9 % (24.0-44.0); MEAN CORPUSCULAR HEMOGLOBIN 25.9 pg (27.0-33.0); MEAN CORPUSCULAR HGB CONC 30.9 g/dl (32.0-36.5); MEAN CORPUSCULAR VOLUME 83.9 fl (80.0-96.0); MONO # 0.4 10^3/uL (0.0-0.8); MONO % 6.4 % (0.0-5.0); NEUTROPHILS # 4.7 10^3/uL (1.5-8.5); NEUTROPHILS % 77.2 % (36.0-66.0); PLATELET COUNT, AUTOMATED 236 10^3/uL (150-450); RED BLOOD COUNT 4.48 10^6/uL (4.00-5.40); WHITE BLOOD COUNT 6.1 10^3/uL (4.0-10.0)
[2020-01-15 11:13] LABS: ERYTHROCYTE SEDIMENTATION RATE 39 mm/hr (0-30)
[2020-01-15 11:37] LABS: ALBUMIN 3.1 GM/DL (3.2-5.2); ALT/SGPT 16 U/L (12-78); BILIRUBIN,TOTAL 0.7 MG/DL (0.2-1.0); BLOOD UREA NITROGEN 13 MG/DL (7-18); CALCIUM LEVEL 8.8 MG/DL (8.8-10.2); CARBON DIOXIDE LEVEL 28 MEQ/L (21-32); CHLORIDE LEVEL 107 MEQ/L (98-107); GLOMERULAR FILTRATION RATE > 60.0 (>45); GLUCOSE, FASTING 116 MG/DL (70-100); SODIUM LEVEL 140 MEQ/L (136-145)
== END ==
LOC: M LAB REF 10:34
PROVIDERS: ATTEND Internal Medicine Rheumatology
DX: Z79.899 Other long term (current) drug therapy (principal)

== ENCOUNTER → 2020-01-15 | Outpatient (REF) | payer BC ==
[2020-01-15 10:46] LABS: BASO % 0.3 % (0.0-1.0); EOS # 0.2 10^3/uL (0.0-0.5); EOS % 3.8 % (0.0-3.0); HEMATOCRIT 37.4 % (36.0-47.0); HEMOGLOBIN 11.6 g/dl (12.0-15.5); LYMPH # 0.7 10^3/uL (1.5-5.0); LYMPH % 11.4 % (24.0-44.0); MEAN CORPUSCULAR VOLUME 83.9 fl (80.0-96.0); MONO # 0.4 10^3/uL (0.0-0.8); MONO % 6.6 % (0.0-5.0); NEUTROPHILS # 4.7 10^3/uL (1.5-8.5); NEUTROPHILS % 77.4 % (36.0-66.0); PLATELET COUNT, AUTOMATED 229 10^3/uL (150-450); RED BLOOD COUNT 4.46 10^6/uL (4.00-5.40)
[2020-01-15 11:00] LABS: ALBUMIN 3.1 GM/DL (3.2-5.2); ALT/SGPT 16 U/L (12-78); BILIRUBIN,TOTAL 0.5 MG/DL (0.2-1.0); BLOOD UREA NITROGEN 13 MG/DL (7-18); CALCIUM LEVEL 8.6 MG/DL (8.8-10.2); CARBON DIOXIDE LEVEL 28 MEQ/L (21-32); CHLORIDE LEVEL 107 MEQ/L (98-107); CHOLESTEROL LEVEL 157 MG/DL (<200); CHOLESTEROL RISK RATIO 2.492 (<5); FREE T4 1.24 NG/DL (0.76-1.46); GLOMERULAR FILTRATION RATE > 60.0 (>45); GLUCOSE, FASTING 115 MG/DL (70-100); HDL CHOLESTEROL 63 MG/DL (>40); LDL CHOLESTEROL 82 MG/DL (<100); NON-HDL-C 94 MG/DL; POTASSIUM SERUM 4.1 MEQ/L (3.5-5.1); SODIUM LEVEL 140 MEQ/L (136-145); TOTAL PROTEIN 6.8 GM/DL (6.4-8.2); TRIGLYCERIDES LEVEL 61 MG/DL (<150)
[2020-01-15 11:11] LABS: HEMOGLOBIN A1c 7.4 %
== END ==
LOC: M LAB REF 10:09 → M SFHCCLAY 15:25
PROVIDERS: ATTEND Nurse Practitioner Family
DX: R60.9 Edema, unspecified (principal); E11.69 Type 2 diabetes mellitus with other specified complication; M05.9 Rheumatoid arthritis with rheumatoid factor, unspecified; J84.10 Pulmonary fibrosis, unspecified; E61.1 Iron deficiency; G89.29 Other chronic pain

== ENCOUNTER → 2020-04-01 | Outpatient (CLI) | payer BC ==
--- NOTE | 2020-04-01 23:37 | REPPI ---
REASON: History of bronchiectasis. COMPARISON: Multiple, the latest 02/16/2019. The cardiomediastinal silhouette is unchanged. The lung mitchell are unchanged. No acute patchy parenchymal opacities or pleural effusions have developed. There is mild chronic CP angle blunting on the right. The osseous structures are unchanged. The tip of the Mediport device is again seen in the superior vena cava. IMPRESSION: Stable appearing chronic changes without evidence of acute cardiopulmonary disease. Electronically Signed by Gallo Veal DO 04/02/2020 12:37 P
== END ==
LOC: M PLAIMG 13:38
PROVIDERS: ATTEND Internal Medicine Pulmonary Disease
DX: J47.9 Bronchiectasis, uncomplicated (principal)

== ENCOUNTER → 2020-04-03 | Outpatient (REF) | payer BC | LOC: M LAB REF 12:57 | PROVIDERS: ATTEND Internal Medicine Pulmonary Disease | DX: J47.9 Bronchiectasis, uncomplicated (principal) ==

== ENCOUNTER → 2020-04-25 | Outpatient (REF) | payer BC | LOC: M LAB REF 14:23 | PROVIDERS: ATTEND Internal Medicine Pulmonary Disease | DX: R05 Cough (principal) ==

== ENCOUNTER → 2020-04-26 | Outpatient (REF) | payer BC | LOC: M LAB REF 08:11 | PROVIDERS: ATTEND Internal Medicine Pulmonary Disease | DX: R05 Cough (principal) ==

== ENCOUNTER → 2020-05-21 | Outpatient (CLI) | payer BC ==
--- NOTE | 2020-06-16 17:44 | REP ---
NONCONTRAST CHEST CT CLINICAL: Cough. TECHNIQUE: Axial noncontrast images from the thoracic inlet to the upper abdomen with coronal and sagittal reformations. COMPARISON: 11/15/2018. FINDINGS: Current examination again demonstrates partially calcified pleural plaquing (right greater than left), as well as scattered areas of fibrosis and scarring primarily identified in the left upper lobe and to a lesser extent the bilateral lung bases with associated elements of traction bronchiectasis. The small 4 mm noncalcified nodule in the left upper lobe and in the deep left posterior sulcus remains stable. No acute consolidation, new nodule, or mass. No effusion. No pneumothorax. The mediastinum demonstrates extensive atherosclerotic changes to the thoracic aorta and coronary arteries without change. No aortic aneurysm or cardiomegaly. No pericardial effusion. No significant adenopathy. Infusaport identified with tip extending into the SVC. Surrounding musculoskeletal structures demonstrate age-related changes and bilateral shoulder repair. IMPRESSION: * Chronic stable fibrosis/scarring, bronchiectasis, and partially calcified pleural plaques. * Two stable 4 mm noncalcified nodules, unchanged. * No acute mediastinal or pleural parenchymal process. MTDD
== END ==
LOC: M RAD 10:21
PROVIDERS: ATTEND Internal Medicine Pulmonary Disease
DX: R91.8 Other nonspecific abnormal finding of lung field (principal); R05 Cough

== ENCOUNTER → 2020-10-08 | Outpatient (REF) | payer BC, OTHER ==
[~2020-10-08] MED LIST changes: +LISI10TA22 PO; -LISI10TA4 PO
[2020-10-08 15:12] LABS: BASO % 0.4 % (0.0-1.0); EOS # 0.3 10^3/uL (0.0-0.5); EOS % 5.2 % (0.0-3.0); HEMATOCRIT 39.4 % (36.0-47.0); HEMOGLOBIN 12.1 g/dl (12.0-15.5); LYMPH # 0.7 10^3/uL (1.5-5.0); LYMPH % 15.3 % (24.0-44.0); MEAN CORPUSCULAR HEMOGLOBIN 25.7 pg (27.0-33.0); MEAN CORPUSCULAR HGB CONC 30.7 g/dl (32.0-36.5); MEAN CORPUSCULAR VOLUME 83.8 fl (80.0-96.0); MONO # 0.4 10^3/uL (0.0-0.8); MONO % 8.8 % (0.0-5.0); NEUTROPHILS # 3.4 10^3/uL (1.5-8.5); NEUTROPHILS % 70.1 % (36.0-66.0); PLATELET COUNT, AUTOMATED 211 10^3/uL (150-450); WHITE BLOOD COUNT 4.8 10^3/uL (4.0-10.0)
[2020-10-08 15:39] LABS: ERYTHROCYTE SEDIMENTATION RATE 34 mm/hr (0-30)
[2020-10-08 15:44] LABS: ALBUMIN 3.4 GM/DL (3.2-5.2); ALT/SGPT 33 U/L (12-78); BILIRUBIN,TOTAL 0.3 MG/DL (0.2-1.0); BLOOD UREA NITROGEN 12 MG/DL (7-18); CALCIUM LEVEL 9.1 MG/DL (8.8-10.2); CARBON DIOXIDE LEVEL 30 MEQ/L (21-32); CHLORIDE LEVEL 104 MEQ/L (98-107); CREATININE FOR GFR 0.52 MG/DL (0.55-1.30); GLOMERULAR FILTRATION RATE > 60.0 (>39); GLUCOSE, FASTING 204 MG/DL (70-100); POTASSIUM SERUM 4.3 MEQ/L (3.5-5.1); SODIUM LEVEL 140 MEQ/L (136-145); TOTAL PROTEIN 7.1 GM/DL (6.4-8.2)
[2020-10-11 00:08] LABS: ANTINUCLEAR ANTIBODIES DIRECT Negative (Negative); CYCLIC CITRULLINATED PEPTIDE > 250 units (0-19)
== END ==
LOC: M LAB REF 14:54
PROVIDERS: ATTEND Internal Medicine Rheumatology
DX: M05.79 Rheumatoid arthritis with rheumatoid factor of multiple sites without organ or systems involvement (principal)

== ENCOUNTER → 2021-01-19 | Outpatient (REF) | payer BC ==
[~2021-01-19] MED LIST changes: -AMIT10TA PO; +AMIT10TA7 PO; +VITA200048 PO
[2021-01-19 16:20] LABS: ALBUMIN 3.5 GM/DL (3.2-5.2); ALT/SGPT 30 U/L (12-78); BILIRUBIN,TOTAL 0.5 MG/DL (0.2-1.0); BLOOD UREA NITROGEN 12 MG/DL (7-18); CALCIUM LEVEL 9.6 MG/DL (8.8-10.2); CARBON DIOXIDE LEVEL 30 MEQ/L (21-32); CHLORIDE LEVEL 104 MEQ/L (98-107); CHOLESTEROL LEVEL 179 MG/DL (<200); CHOLESTEROL RISK RATIO 2.887 (<5); CREATININE FOR GFR 0.43 MG/DL (0.55-1.30); GLOMERULAR FILTRATION RATE > 60.0 (>39); GLUCOSE, FASTING 81 MG/DL (70-100); HDL CHOLESTEROL 62 MG/DL (>40); LDL CHOLESTEROL 93 MG/DL (<100); NON-HDL-C 117 MG/DL; POTASSIUM SERUM 3.9 MEQ/L (3.5-5.1); SODIUM LEVEL 139 MEQ/L (136-145); TOTAL PROTEIN 7.1 GM/DL (6.4-8.2); TRIGLYCERIDES LEVEL 118 MG/DL (<150)
== END ==
LOC: M LAB REF 14:41
PROVIDERS: ATTEND Nurse Practitioner Family
DX: E78.00 Pure hypercholesterolemia, unspecified (principal); E11.65 Type 2 diabetes mellitus with hyperglycemia

== ENCOUNTER → 2021-05-27 | Outpatient (REF) | payer MEDICARE, BC, OTHER ==
[2021-05-27 15:04] LABS: BASO % 0.4 % (0.0-1.0); EOS # 0.2 10^3/uL (0.0-0.5); EOS % 2.3 % (0.0-3.0); HEMATOCRIT 39.2 % (36.0-47.0); HEMOGLOBIN 12.5 g/dl (12.0-15.5); LYMPH # 0.5 10^3/uL (1.5-5.0); LYMPH % 7.6 % (24.0-44.0); MEAN CORPUSCULAR HEMOGLOBIN 27.5 pg (27.0-33.0); MEAN CORPUSCULAR HGB CONC 31.9 g/dl (32.0-36.5); MEAN CORPUSCULAR VOLUME 86.3 fl (80.0-96.0); MONO # 0.4 10^3/uL (0.0-0.8); MONO % 5.2 % (2.0-8.0); NEUTROPHILS # 5.9 10^3/uL (1.5-8.5); NEUTROPHILS % 84.1 % (36.0-66.0); PLATELET COUNT, AUTOMATED 223 10^3/uL (150-450); RED BLOOD COUNT 4.54 10^6/uL (4.00-5.40); WHITE BLOOD COUNT 7.1 10^3/uL (4.0-10.0)
[2021-05-27 15:23] LABS: ERYTHROCYTE SEDIMENTATION RATE 45 mm/hr (0-30)
[2021-05-27 15:36] LABS: ALBUMIN 2.8 GM/DL (3.2-5.2); ALT/SGPT 25 U/L (12-78); BILIRUBIN,TOTAL 0.5 MG/DL (0.2-1.0); BLOOD UREA NITROGEN 8 MG/DL (7-18); CALCIUM LEVEL 8.6 MG/DL (8.8-10.2); CARBON DIOXIDE LEVEL 30 MEQ/L (21-32); CHLORIDE LEVEL 106 MEQ/L (98-107); CREATININE FOR GFR 0.51 MG/DL (0.55-1.30); GLOMERULAR FILTRATION RATE > 60.0 (>39); GLUCOSE, FASTING 202 MG/DL (70-100); SODIUM LEVEL 139 MEQ/L (136-145)
== END ==
LOC: M LAB REF 14:46
PROVIDERS: ATTEND Internal Medicine Rheumatology
DX: Z51.81 Encounter for therapeutic drug level monitoring (principal); Z79.899 Other long term (current) drug therapy

== ENCOUNTER → 2021-11-23 | Outpatient (REF) | payer MEDICARE, BC ==
[~2021-11-23] MED LIST changes: -KLOR10TA76 PO; +POTA-136 PO
[2021-11-23 14:48] LABS: BASO % 0.4 % (0.0-1.0); EOS # 0.5 10^3/uL (0.0-0.5); EOS % 8.7 % (0.0-3.0); HEMATOCRIT 38.6 % (36.0-47.0); HEMOGLOBIN 12.4 g/dl (12.0-15.5); LYMPH # 1.2 10^3/uL (1.5-5.0); LYMPH % 22.9 % (24.0-44.0); MEAN CORPUSCULAR HEMOGLOBIN 27.9 pg (27.0-33.0); MEAN CORPUSCULAR HGB CONC 32.1 g/dl (32.0-36.5); MEAN CORPUSCULAR VOLUME 86.9 fl (80.0-96.0); MONO # 0.5 10^3/uL (0.0-0.8); MONO % 9.2 % (2.0-8.0); NEUTROPHILS % 58.6 % (36.0-66.0); PLATELET COUNT, AUTOMATED 171 10^3/uL (150-450); RED BLOOD COUNT 4.44 10^6/uL (4.00-5.40); WHITE BLOOD COUNT 5.2 10^3/uL (4.0-10.0)
[2021-11-23 15:11] LABS: ALBUMIN 3.2 GM/DL (3.2-5.2); ALT/SGPT 35 U/L (12-78); BILIRUBIN,TOTAL 0.5 MG/DL (0.2-1.0); BLOOD UREA NITROGEN 12 MG/DL (7-18); CALCIUM LEVEL 9.2 MG/DL (8.8-10.2); CARBON DIOXIDE LEVEL 30 MEQ/L (21-32); CHLORIDE LEVEL 107 MEQ/L (98-107); CREATININE FOR GFR 0.52 MG/DL (0.55-1.30); GLOMERULAR FILTRATION RATE > 60.0 (>39); GLUCOSE, FASTING 103 MG/DL (70-100); POTASSIUM SERUM 3.9 MEQ/L (3.5-5.1); SODIUM LEVEL 141 MEQ/L (136-145); TOTAL PROTEIN 7.2 GM/DL (6.4-8.2)
[2021-11-23 15:15] LABS: ERYTHROCYTE SEDIMENTATION RATE 30 mm/hr (0-30)
== END ==
LOC: M LAB REF 14:17
PROVIDERS: ATTEND Internal Medicine Rheumatology
DX: Z79.899 Other long term (current) drug therapy (principal)

== ENCOUNTER → 2022-01-29 | Outpatient (REF) | payer MEDICARE, BC ==
[2022-01-29 14:55] LABS: BASO % 0.5 % (0.0-1.0); EOS # 0.3 10^3/uL (0.0-0.5); EOS % 3.2 % (0.0-3.0); HEMATOCRIT 40.2 % (36.0-47.0); HEMOGLOBIN 12.9 g/dl (12.0-15.5); LYMPH # 0.7 10^3/uL (1.5-5.0); LYMPH % 8.7 % (24.0-44.0); MEAN CORPUSCULAR HEMOGLOBIN 27.9 pg (27.0-33.0); MEAN CORPUSCULAR HGB CONC 32.1 g/dl (32.0-36.5); MONO # 0.5 10^3/uL (0.0-0.8); MONO % 6.2 % (2.0-8.0); NEUTROPHILS # 6.7 10^3/uL (1.5-8.5); NEUTROPHILS % 81.2 % (36.0-66.0); PLATELET COUNT, AUTOMATED 313 10^3/uL (150-450); RED BLOOD COUNT 4.62 10^6/uL (4.00-5.40); WHITE BLOOD COUNT 8.3 10^3/uL (4.0-10.0)
[2022-01-29 15:18] LABS: HEMOGLOBIN A1c 6.5 %
[2022-01-29 15:30] LABS: ALBUMIN 3.3 GM/DL (3.2-5.2); ALT/SGPT 34 U/L (12-78); BILIRUBIN,TOTAL 0.4 MG/DL (0.2-1.0); BLOOD UREA NITROGEN 13 MG/DL (7-18); CARBON DIOXIDE LEVEL 29 MEQ/L (21-32); CHLORIDE LEVEL 102 MEQ/L (98-107); CREATININE FOR GFR 0.67 MG/DL (0.55-1.30); GLOMERULAR FILTRATION RATE > 60.0 (>39); GLUCOSE, FASTING 215 MG/DL (70-100); POTASSIUM SERUM 4.5 MEQ/L (3.5-5.1); SODIUM LEVEL 135 MEQ/L (136-145)
== END ==
LOC: M SFHCCLAY 14:29
PROVIDERS: ATTEND Nurse Practitioner Family
DX: E11.69 Type 2 diabetes mellitus with other specified complication (principal); J84.10 Pulmonary fibrosis, unspecified; M05.9 Rheumatoid arthritis with rheumatoid factor, unspecified

== ENCOUNTER → 2022-02-01 | Outpatient (REF) | payer MEDICARE, BC ==
[2022-02-01 19:00] LABS: CREATININE, URINE 30.5 MG/DL; MALB URINE SIEMENS 5.4 MG/L; MAU/CREAT RATIO 17.7 MCG/MG (0.0-30.0)
== END ==
LOC: M SFHCCLAY 15:09
PROVIDERS: ATTEND Nurse Practitioner Family
DX: E11.69 Type 2 diabetes mellitus with other specified complication (principal); M05.9 Rheumatoid arthritis with rheumatoid factor, unspecified; J84.10 Pulmonary fibrosis, unspecified

== ENCOUNTER 2022-05-02 05:02 | Inpatient (IN) | payer MEDICARE, BC ==
[~2022-05-02] VITALS: Ht 157.5 cm; Wt 75.0 kg
[2022-05-02] MEDS ORDERED: MORPHINE 2 MG/ML 1ML VIAL IV ONE ×2 (07:15→09:05)
[2022-05-02] MEDS ORDERED: ONDANSETRON 4MG 2ML VIAL IV ONE (07:15)
[2022-05-02 08:45] LABS: BASO % 0.3 % (0.0-1.0); EOS # 0.2 10^3/uL (0.0-0.5); EOS % 1.9 % (0.0-3.0); HEMATOCRIT 36.1 % (36.0-47.0); HEMOGLOBIN 11.6 g/dl (12.0-15.5); LYMPH # 0.8 10^3/uL (1.5-5.0); LYMPH % 8.6 % (24.0-44.0); MEAN CORPUSCULAR HEMOGLOBIN 28.4 pg (27.0-33.0); MEAN CORPUSCULAR HGB CONC 32.1 g/dl (32.0-36.5); MEAN CORPUSCULAR VOLUME 88.3 fl (80.0-96.0); MONO # 0.5 10^3/uL (0.0-0.8); MONO % 5.4 % (2.0-8.0); NEUTROPHILS # 7.5 10^3/uL (1.5-8.5); NEUTROPHILS % 83.5 % (36.0-66.0); PLATELET COUNT, AUTOMATED 166 10^3/uL (150-450); RED BLOOD COUNT 4.09 10^6/uL (4.00-5.40)
[2022-05-02 08:52] LABS: INR 0.95; PROTHROMBIN TIME 13.1 SECONDS (12.7-14.5)
[2022-05-02 08:54] LABS: PARTIAL THROMBOPLASTIN TIME 53.8 SECONDS (25.9-37.0)
[2022-05-02] MEDS: NS 1,000 ML IV SCH ×2 (09:03→18:13)
[2022-05-02 09:06] LABS: CK-MB VALUE MASS 1.6 NG/ML (<3.6); MB/CK RELATIVE INDEX 1.5 (< OR =4)
[2022-05-02 09:08] LABS: ALT/SGPT 20 U/L (12-78); BLOOD UREA NITROGEN 12 MG/DL (7-18); CALCIUM LEVEL 8.7 MG/DL (8.8-10.2); CARBON DIOXIDE LEVEL 28 MEQ/L (21-32); CHLORIDE LEVEL 106 MEQ/L (98-107); CREATININE FOR GFR 0.45 MG/DL (0.55-1.30); GLOMERULAR FILTRATION RATE > 60.0 (>39); GLUCOSE, FASTING 169 MG/DL (70-100); POTASSIUM SERUM 3.9 MEQ/L (3.5-5.1); SODIUM LEVEL 137 MEQ/L (136-145)
[2022-05-02 09:09] LABS: ALBUMIN 3.2 GM/DL (3.2-5.2); BILIRUBIN,DIRECT 0.2 MG/DL (0.0-0.2); BILIRUBIN,TOTAL 0.6 MG/DL (0.2-1.0); MAGNESIUM LEVEL 1.8 MG/DL (1.8-2.4); TOTAL PROTEIN 6.3 GM/DL (6.4-8.2)
[2022-05-02 09:11] LABS: RSV AMPLIFICATION NEGATIVE (NEGATIVE)
[2022-05-02] MEDS ORDERED: ATOR1TAB19 PO (10:35)
[2022-05-02] MEDS ORDERED: VITA100093 PO (10:35)
[2022-05-02] MEDS ORDERED: ALBU2.5V10 NEB (10:35)
[2022-05-02] MEDS ORDERED: MORP30TASA PO (10:35)
[2022-05-02] MEDS ORDERED: MYCO250C PO (10:35)
[2022-05-02] MEDS ORDERED: AMLO1TAB24 PO (10:35)
[2022-05-02] MEDS ORDERED: HOME MED LIST COMPLETE! XX SCH (10:40)
[2022-05-02] MEDS ORDERED: NALOXONE INJ 0.4MG/1ML VIAL (J2310 PER 1MG) IV PRN (10:55)
[2022-05-02] MEDS ORDERED: DEXTROSE 50% 50 ML SYRINGE IV PRN (10:55)
[2022-05-02] MEDS ORDERED: ALBUTEROL SULFATE 2.5 MG/0.5 ML INH NEB SOLN NEB PRN (10:55)
[2022-05-02] MEDS ORDERED: MORPHINE 4 MG/ML 1ML VIAL/SYRINGE IV PRN (10:55)
[2022-05-02] MEDS ORDERED: GLUCOSE 4GM CHEW TABLET PO PRN (10:55)
[2022-05-02] MEDS ORDERED: SENOKOT S TAB PO PRN (10:55)
[2022-05-02] MEDS ORDERED: PROMETHAZINE 25MG/ML 1ML VIAL IV PRN (10:55)
[2022-05-02] MEDS ORDERED: GLUCAGON INJ 1MG VIAL SC PRN (10:55)
[2022-05-02] MEDS: INSULIN LISPRO (NovoLOG) PER UNIT SC SCH ×3 (12:00→21:00)
[2022-05-02 12:51] VITALS: BP 149/67
[2022-05-02 14:00] VITALS: BP 141/55
[2022-05-02] MEDS ORDERED: MORPHINE 30 MG SA TAB PO SCH (14:33)
[2022-05-02] MEDS: ATORVASTATIN 10 MG TAB PO SCH (15:36)
[2022-05-02] MEDS: MORPHINE 30 MG TAB **MSIR PO PRN (15:36)
[2022-05-02] MEDS: amLODIPine 5 MG TAB PO SCH (15:37)
[2022-05-02] MEDS: VITAMIN D 1,000 INTERNATIONAL UNITS TABLET PO SCH (15:40)
[2022-05-02] MEDS: MORPHINE 30 MG SA TAB PO SCH (21:09)
[2022-05-02] MEDS: MYCOPHENOLATE MOFETIL 250 MG CAP (J7517) PO SCH (21:09)
[2022-05-02] MEDS: AMITRIPTYLINE 10MG TABLET PO SCH (21:09)
[2022-05-02] MEDS: LEVEMIR (INSULIN DETEMIR) 1 UNITS/0.01ML SC SCH (21:10)
[2022-05-02] MEDS: CYCLOBENZAPRINE 10MG TABLET PO PRN (21:43)
[2022-05-02 22:00] VITALS: BP 139/54
[2022-05-03] MEDS: NS 1,000 ML IV SCH (01:23)
[2022-05-03 06:00] VITALS: BP 138/84
[2022-05-03] MEDS: INSULIN LISPRO (NovoLOG) PER UNIT SC SCH ×4 (07:30→20:49)
[2022-05-03 07:46] LABS: BLOOD UREA NITROGEN 7 MG/DL (7-18); CALCIUM LEVEL 8.1 MG/DL (8.8-10.2); CARBON DIOXIDE LEVEL 24 MEQ/L (21-32); CHLORIDE LEVEL 112 MEQ/L (98-107); CREATININE FOR GFR 0.42 MG/DL (0.55-1.30); GLOMERULAR FILTRATION RATE > 60.0 (>39); GLUCOSE, FASTING 66 MG/DL (70-100); POTASSIUM SERUM 4.4 MEQ/L (3.5-5.1); SODIUM LEVEL 139 MEQ/L (136-145)
[2022-05-03 08:00] VITALS: BP 135/75
[2022-05-03 08:38] LABS: HEMATOCRIT 35.3 % (36.0-47.0); HEMOGLOBIN 11.1 g/dl (12.0-15.5); MEAN CORPUSCULAR HGB CONC 31.4 g/dl (32.0-36.5); MEAN CORPUSCULAR VOLUME 89.1 fl (80.0-96.0); PLATELET COUNT, AUTOMATED 157 10^3/uL (150-450); RED BLOOD COUNT 3.96 10^6/uL (4.00-5.40); WHITE BLOOD COUNT 5.9 10^3/uL (4.0-10.0)
[2022-05-03] MEDS ORDERED: MORPHINE 30 MG TAB **MSIR PO ONE (09:40)
[2022-05-03] MEDS ORDERED: MORPHINE 2 MG/ML 1ML VIAL IV ONE (09:40)
[2022-05-03] MEDS: MORPHINE 30 MG SA TAB PO SCH ×2 (09:49→20:46)
[2022-05-03] MEDS: VITAMIN D 1,000 INTERNATIONAL UNITS TABLET PO SCH (09:59)
[2022-05-03] MEDS: amLODIPine 5 MG TAB PO SCH (09:59)
[2022-05-03] MEDS: ATORVASTATIN 10 MG TAB PO SCH (10:00)
[2022-05-03] MEDS: MYCOPHENOLATE MOFETIL 250 MG CAP (J7517) PO SCH ×2 (10:00→20:46)
[2022-05-03] MEDS: ENOXAPARIN 40MG/0.4ML SYRINGE (J1650 PER 10MG) SC SCH (10:04)
[2022-05-03 14:00] VITALS: BP 134/60
[2022-05-03] MEDS: MORPHINE 30 MG TAB **MSIR PO PRN (14:41)
[2022-05-03] MEDS ORDERED: SODIUM CHLORIDE 0.9% INJ 10 ML SYR IV PRN (17:15)
[2022-05-03 19:43] VITALS: BP 111/55
[2022-05-03] MEDS: AMITRIPTYLINE 10MG TABLET PO SCH (20:45)
[2022-05-03] MEDS: LEVEMIR (INSULIN DETEMIR) 1 UNITS/0.01ML SC SCH (20:46)
[2022-05-03] MEDS: CYCLOBENZAPRINE 10MG TABLET PO PRN (21:08)
[2022-05-04 06:18] VITALS: BP 122/54
[2022-05-04 06:25] LABS: HEMATOCRIT 30.9 % (36.0-47.0); HEMOGLOBIN 9.7 g/dl (12.0-15.5); MEAN CORPUSCULAR HEMOGLOBIN 28.4 pg (27.0-33.0); MEAN CORPUSCULAR HGB CONC 31.4 g/dl (32.0-36.5); MEAN CORPUSCULAR VOLUME 90.6 fl (80.0-96.0); PLATELET COUNT, AUTOMATED 145 10^3/uL (150-450); RED BLOOD COUNT 3.41 10^6/uL (4.00-5.40); WHITE BLOOD COUNT 5.2 10^3/uL (4.0-10.0)
[2022-05-04 07:05] LABS: BLOOD UREA NITROGEN 9 MG/DL (7-18); CALCIUM LEVEL 8.3 MG/DL (8.8-10.2); CARBON DIOXIDE LEVEL 30 MEQ/L (21-32); CHLORIDE LEVEL 108 MEQ/L (98-107); CREATININE FOR GFR 0.39 MG/DL (0.55-1.30); GLOMERULAR FILTRATION RATE > 60.0 (>39); GLUCOSE, FASTING 65 MG/DL (70-100); POTASSIUM SERUM 4.2 MEQ/L (3.5-5.1); SODIUM LEVEL 140 MEQ/L (136-145)
[2022-05-04] MEDS: INSULIN LISPRO (NovoLOG) PER UNIT SC SCH ×2 (07:18→12:01)
[2022-05-04] MEDS ORDERED: MORPHINE 30 MG TAB **MSIR PO ONE (07:30)
[2022-05-04] MEDS ORDERED: PILL CUTTER 1 EACH XX PRN (07:30)
[2022-05-04] MEDS ORDERED: MSIR30TA PO (08:19)
[2022-05-04] MEDS ORDERED: SODIUM CHLORIDE 0.9% INJ 10 ML SYR IV SCH (09:00)
[2022-05-04] MEDS: ENOXAPARIN 40MG/0.4ML SYRINGE (J1650 PER 10MG) SC SCH (09:21)
[2022-05-04] MEDS: VITAMIN D 1,000 INTERNATIONAL UNITS TABLET PO SCH (09:22)
[2022-05-04] MEDS: ATORVASTATIN 10 MG TAB PO SCH (09:22)
[2022-05-04] MEDS: MORPHINE 30 MG SA TAB PO SCH (09:23)
[2022-05-04 09:29] VITALS: BP 114/89
[2022-05-04] MEDS: MYCOPHENOLATE MOFETIL 250 MG CAP (J7517) PO SCH (09:29)
[2022-05-04] MEDS: amLODIPine 5 MG TAB PO SCH (09:29)
[2022-05-04] MEDS: MORPHINE 30 MG TAB **MSIR PO PRN (13:32)
[2022-05-04 14:00] VITALS: BP_SYST 123; BP_SYST 129; BP_DIAS 44; BP_DIAS 46
== END 2022-05-04 14:30 | DRG 536 ==
LOC: M ED 05:02 → M ED INP 10:52 → ENRESERV 11:28 → M MS5PR 12:25
PROVIDERS: ADMIT General Practice; ATTEND General Practice
DX: S72.114A Nondisplaced fracture of greater trochanter of right femur, initial encounter for closed fracture (principal); M06.9 Rheumatoid arthritis, unspecified; D50.9 Iron deficiency anemia, unspecified; J44.9 Chronic obstructive pulmonary disease, unspecified; Z79.52 Long term (current) use of systemic steroids; M81.0 Age-related osteoporosis without current pathological fracture; E11.9 Type 2 diabetes mellitus without complications; K21.9 Gastro-esophageal reflux disease without esophagitis; D63.8 Anemia in other chronic diseases classified elsewhere; Z96.643 Presence of artificial hip joint, bilateral; Z96.653 Presence of artificial knee joint, bilateral; Z96.611 Presence of right artificial shoulder joint; Z96.612 Presence of left artificial shoulder joint; Z96.698 Presence of other orthopedic joint implants; Z66 Do not resuscitate; W01.0XXA Fall on same level from slipping, tripping and stumbling without subsequent striking against object, initial encounter; Y92.009 Unspecified place in unspecified non-institutional (private) residence as the place of occurrence of the external cause

== ENCOUNTER 2022-05-04 11:49 | Inpatient (IN) | payer MEDICARE, BC ==
[~2022-05-04] VITALS: Ht 157.5 cm; Wt 79.3 kg
[~2022-05-04 11:49] MED LIST changes: +ALBU2.5V10 NEB; +AMLO1TAB24 PO; +ATOR1TAB19 PO; +MORP30TASA PO; +MSIR30TA PO; +MYCO250C PO; +VITA100093 PO
[2022-05-04 14:00] VITALS: BP 146/86
[2022-05-04] MEDS ORDERED: DEXTROSE 50% 50 ML SYRINGE IV PRN (14:05)
[2022-05-04] MEDS ORDERED: MORPHINE 30 MG TAB **MSIR PO PRN (14:05)
[2022-05-04] MEDS ORDERED: GLUCOSE 4GM CHEW TABLET PO PRN (14:05)
[2022-05-04] MEDS ORDERED: GLUCAGON INJ 1MG VIAL SC PRN (14:05)
[2022-05-04] MEDS ORDERED: CYCLOBENZAPRINE 5MG TABLET PO PRN (15:50)
[2022-05-04] MEDS: ACETAMINOPHEN 500 MG TAB PO SCH ×2 (17:22→21:38)
[2022-05-04] MEDS: INSULIN LISPRO (NovoLOG) PER UNIT SC SCH ×2 (17:23→21:00)
[2022-05-04 20:00] VITALS: BP 143/64
[2022-05-04] MEDS: COMBIVENT RESPIMAT 100-20MCG INHALER 4GM INH SCH (20:38)
[2022-05-04] MEDS: MORPHINE 30 MG SA TAB PO SCH (21:38)
[2022-05-04] MEDS: LEVEMIR (INSULIN DETEMIR) 1 UNITS/0.01ML SC SCH (21:39)
[2022-05-04] MEDS: AMITRIPTYLINE 10MG TABLET PO SCH (21:39)
[2022-05-04] MEDS: SENNA 8.6 MG TAB (SENOKOT) PO SCH (21:39)
[2022-05-04] MEDS: MYCOPHENOLATE MOFETIL 250 MG CAP (J7517) PO SCH (21:39)
[2022-05-04] MEDS: DOCUSATE SODIUM 100MG CAPSULE PO SCH (21:39)
[2022-05-05 05:07] VITALS: BP 135/69
[2022-05-05] MEDS: SODIUM CHLORIDE 0.9% INJ 10 ML SYR IV PRN (05:25)
[2022-05-05 05:34] LABS: BASO % 0.4 % (0.0-1.0); EOS # 0.4 10^3/uL (0.0-0.5); EOS % 8.9 % (0.0-3.0); HEMATOCRIT 28.5 % (36.0-47.0); HEMOGLOBIN 9.1 g/dl (12.0-15.5); LYMPH # 0.9 10^3/uL (1.5-5.0); LYMPH % 20.6 % (24.0-44.0); MEAN CORPUSCULAR HEMOGLOBIN 28.5 pg (27.0-33.0); MEAN CORPUSCULAR HGB CONC 31.9 g/dl (32.0-36.5); MEAN CORPUSCULAR VOLUME 89.3 fl (80.0-96.0); MONO # 0.6 10^3/uL (0.0-0.8); MONO % 12.5 % (2.0-8.0); NEUTROPHILS # 2.6 10^3/uL (1.5-8.5); NEUTROPHILS % 57.4 % (36.0-66.0); PLATELET COUNT, AUTOMATED 133 10^3/uL (150-450); RED BLOOD COUNT 3.19 10^6/uL (4.00-5.40); WHITE BLOOD COUNT 4.5 10^3/uL (4.0-10.0)
[2022-05-05 06:11] LABS: ALBUMIN 2.2 GM/DL (3.2-5.2); ALT/SGPT 18 U/L (12-78); BILIRUBIN,TOTAL 0.3 MG/DL (0.2-1.0); BLOOD UREA NITROGEN 13 MG/DL (7-18); CALCIUM LEVEL 8.1 MG/DL (8.8-10.2); CARBON DIOXIDE LEVEL 29 MEQ/L (21-32); CHLORIDE LEVEL 109 MEQ/L (98-107); CREATININE FOR GFR 0.64 MG/DL (0.55-1.30); GLOMERULAR FILTRATION RATE > 60.0 (>39); GLUCOSE, FASTING 201 MG/DL (70-100); POTASSIUM SERUM 4.2 MEQ/L (3.5-5.1); SODIUM LEVEL 140 MEQ/L (136-145); TOTAL PROTEIN 5.6 GM/DL (6.4-8.2)
[2022-05-05] MEDS: INSULIN LISPRO (NovoLOG) PER UNIT SC SCH ×4 (07:35→19:34)
[2022-05-05] MEDS: PANTOPRAZOLE 40MG TAB (PROTONIX) PO SCH (07:35)
[2022-05-05] MEDS: ATORVASTATIN 10 MG TAB PO SCH (07:35)
[2022-05-05] MEDS: MYCOPHENOLATE MOFETIL 250 MG CAP (J7517) PO SCH ×2 (07:35→21:28)
[2022-05-05] MEDS: ACETAMINOPHEN 500 MG TAB PO SCH ×3 (07:36→21:00)
[2022-05-05] MEDS: VITAMIN D 1,000 INTERNATIONAL UNITS TABLET PO SCH (07:36)
[2022-05-05] MEDS: MORPHINE 30 MG SA TAB PO SCH ×2 (07:37→21:27)
[2022-05-05] MEDS: amLODIPine 5 MG TAB PO SCH (07:37)
[2022-05-05] MEDS: DOCUSATE SODIUM 100MG CAPSULE PO SCH ×2 (07:37→21:27)
[2022-05-05] MEDS: ENOXAPARIN 40MG/0.4ML SYRINGE (J1650 PER 10MG) SC SCH (07:38)
[2022-05-05] MEDS: COMBIVENT RESPIMAT 100-20MCG INHALER 4GM INH SCH ×3 (08:00→20:05)
[2022-05-05] MEDS: SODIUM CHLORIDE 0.9% INJ 10 ML SYR IV SCH (08:57)
[2022-05-05 14:00] VITALS: BP 149/70
[2022-05-05 20:00] VITALS: BP 148/65
[2022-05-05] MEDS: SENNA 8.6 MG TAB (SENOKOT) PO SCH (21:28)
[2022-05-05] MEDS: LEVEMIR (INSULIN DETEMIR) 1 UNITS/0.01ML SC SCH (21:28)
[2022-05-05] MEDS: AMITRIPTYLINE 10MG TABLET PO SCH (21:28)
[2022-05-06 06:00] VITALS: BP 156/70
[2022-05-06] MEDS: INSULIN LISPRO (NovoLOG) PER UNIT SC SCH ×4 (07:30→19:31)
[2022-05-06] MEDS: COMBIVENT RESPIMAT 100-20MCG INHALER 4GM INH SCH ×3 (08:50→19:11)
[2022-05-06] MEDS: VITAMIN D 1,000 INTERNATIONAL UNITS TABLET PO SCH (09:00)
[2022-05-06] MEDS: MYCOPHENOLATE MOFETIL 250 MG CAP (J7517) PO SCH ×2 (09:00→21:58)
[2022-05-06] MEDS: ACETAMINOPHEN 500 MG TAB PO SCH ×3 (09:00→21:36)
[2022-05-06] MEDS: MORPHINE 30 MG SA TAB PO SCH ×2 (09:00→21:36)
[2022-05-06] MEDS: DOCUSATE SODIUM 100MG CAPSULE PO SCH ×3 (09:00→21:36)
[2022-05-06] MEDS: amLODIPine 5 MG TAB PO SCH (09:01)
[2022-05-06] MEDS: SODIUM CHLORIDE 0.9% INJ 10 ML SYR IV SCH (09:01)
[2022-05-06] MEDS: PANTOPRAZOLE 40MG TAB (PROTONIX) PO SCH (09:01)
[2022-05-06] MEDS: ATORVASTATIN 10 MG TAB PO SCH (09:01)
[2022-05-06] MEDS: ENOXAPARIN 40MG/0.4ML SYRINGE (J1650 PER 10MG) SC SCH (09:02)
[2022-05-06] MEDS: LIDOCAINE 5% (LIDODERM) PATCH TD SCH (12:17)
[2022-05-06] MEDS: CYCLOBENZAPRINE 5MG TABLET PO PRN (12:23)
[2022-05-06 14:00] VITALS: BP 165/73
[2022-05-06 20:00] VITALS: BP 133/59
[2022-05-06] MEDS: SENNA 8.6 MG TAB (SENOKOT) PO SCH ×2 (21:00→21:36)
[2022-05-06] MEDS: LEVEMIR (INSULIN DETEMIR) 1 UNITS/0.01ML SC SCH (21:35)
[2022-05-06] MEDS: AMITRIPTYLINE 10MG TABLET PO SCH (21:36)
[2022-05-06] MEDS: CYCLOBENZAPRINE 5MG TABLET PO SCH (21:37)
[2022-05-06] MEDS: **NOTE PATIENT COMMENT** MISC XX SCH (21:38)
[2022-05-07 06:00] VITALS: BP 137/63
[2022-05-07] MEDS: SODIUM CHLORIDE 0.9% INJ 10 ML SYR IV PRN (06:03)
[2022-05-07 06:24] LABS: BASO % 0.6 % (0.0-1.0); EOS # 0.4 10^3/uL (0.0-0.5); EOS % 9.4 % (0.0-3.0); HEMATOCRIT 28.7 % (36.0-47.0); HEMOGLOBIN 9.2 g/dl (12.0-15.5); LYMPH % 21.6 % (24.0-44.0); MEAN CORPUSCULAR HEMOGLOBIN 28.3 pg (27.0-33.0); MEAN CORPUSCULAR HGB CONC 32.1 g/dl (32.0-36.5); MEAN CORPUSCULAR VOLUME 88.3 fl (80.0-96.0); MONO # 0.5 10^3/uL (0.0-0.8); MONO % 10.5 % (2.0-8.0); NEUTROPHILS # 2.7 10^3/uL (1.5-8.5); NEUTROPHILS % 57.7 % (36.0-66.0); PLATELET COUNT, AUTOMATED 192 10^3/uL (150-450); RED BLOOD COUNT 3.25 10^6/uL (4.00-5.40); WHITE BLOOD COUNT 4.7 10^3/uL (4.0-10.0)
[2022-05-07] MEDS: COMBIVENT RESPIMAT 100-20MCG INHALER 4GM INH SCH ×3 (06:55→20:00)
[2022-05-07] MEDS: INSULIN LISPRO (NovoLOG) PER UNIT SC SCH ×4 (07:13→21:00)
[2022-05-07 07:17] LABS: BLOOD UREA NITROGEN 11 MG/DL (7-18); CALCIUM LEVEL 8.3 MG/DL (8.8-10.2); CARBON DIOXIDE LEVEL 31 MEQ/L (21-32); CHLORIDE LEVEL 110 MEQ/L (98-107); CREATININE FOR GFR 0.32 MG/DL (0.55-1.30); GLOMERULAR FILTRATION RATE > 60.0 (>39); GLUCOSE, FASTING 68 MG/DL (70-100); POTASSIUM SERUM 3.9 MEQ/L (3.5-5.1); SODIUM LEVEL 145 MEQ/L (136-145)
[2022-05-07] MEDS: SODIUM CHLORIDE 0.9% INJ 10 ML SYR IV SCH (07:20)
[2022-05-07] MEDS: VITAMIN D 1,000 INTERNATIONAL UNITS TABLET PO SCH (09:43)
[2022-05-07] MEDS: MYCOPHENOLATE MOFETIL 250 MG CAP (J7517) PO SCH ×2 (09:43→21:28)
[2022-05-07] MEDS: DOCUSATE SODIUM 100MG CAPSULE PO SCH ×2 (09:43→21:28)
[2022-05-07] MEDS: PANTOPRAZOLE 40MG TAB (PROTONIX) PO SCH (09:43)
[2022-05-07] MEDS: ATORVASTATIN 10 MG TAB PO SCH (09:43)
[2022-05-07] MEDS: amLODIPine 5 MG TAB PO SCH (09:43)
[2022-05-07] MEDS: ENOXAPARIN 40MG/0.4ML SYRINGE (J1650 PER 10MG) SC SCH (09:44)
[2022-05-07] MEDS: ACETAMINOPHEN 500 MG TAB PO SCH ×4 (09:44→21:28)
[2022-05-07] MEDS: MORPHINE 30 MG SA TAB PO SCH ×2 (09:44→21:27)
[2022-05-07] MEDS: LIDOCAINE 5% (LIDODERM) PATCH TD SCH (09:45)
[2022-05-07] MEDS: CYCLOBENZAPRINE 5MG TABLET PO PRN (09:50)
[2022-05-07 14:00] VITALS: BP 142/63
[2022-05-07] MEDS: SENNA 8.6 MG TAB (SENOKOT) PO SCH ×2 (21:00→21:27)
[2022-05-07] MEDS: LEVEMIR (INSULIN DETEMIR) 1 UNITS/0.01ML SC SCH ×2 (21:00→21:29)
[2022-05-07 21:06] VITALS: BP 126/70
[2022-05-07] MEDS: CYCLOBENZAPRINE 5MG TABLET PO SCH (21:28)
[2022-05-07] MEDS: AMITRIPTYLINE 10MG TABLET PO SCH (21:28)
[2022-05-07] MEDS: **NOTE PATIENT COMMENT** MISC XX SCH (21:29)
[2022-05-08 06:02] VITALS: BP 138/76
[2022-05-08] MEDS: COMBIVENT RESPIMAT 100-20MCG INHALER 4GM INH SCH ×3 (07:26→20:31)
[2022-05-08] MEDS: INSULIN LISPRO (NovoLOG) PER UNIT SC SCH ×4 (07:30→21:00)
[2022-05-08] MEDS: DOCUSATE SODIUM 100MG CAPSULE PO SCH ×2 (09:00→21:00)
[2022-05-08] MEDS: SODIUM CHLORIDE 0.9% INJ 10 ML SYR IV SCH (09:06)
[2022-05-08] MEDS: LIDOCAINE 5% (LIDODERM) PATCH TD SCH (09:06)
[2022-05-08] MEDS: VITAMIN D 1,000 INTERNATIONAL UNITS TABLET PO SCH (09:07)
[2022-05-08] MEDS: ATORVASTATIN 10 MG TAB PO SCH (09:07)
[2022-05-08] MEDS: amLODIPine 5 MG TAB PO SCH (09:07)
[2022-05-08] MEDS: ENOXAPARIN 40MG/0.4ML SYRINGE (J1650 PER 10MG) SC SCH (09:07)
[2022-05-08] MEDS: PANTOPRAZOLE 40MG TAB (PROTONIX) PO SCH (09:07)
[2022-05-08] MEDS: ACETAMINOPHEN 500 MG TAB PO SCH ×3 (09:08→21:00)
[2022-05-08] MEDS: MORPHINE 30 MG SA TAB PO SCH ×2 (09:08→21:55)
[2022-05-08] MEDS: MYCOPHENOLATE MOFETIL 250 MG CAP (J7517) PO SCH ×2 (09:08→21:54)
[2022-05-08] MEDS: CYCLOBENZAPRINE 5MG TABLET PO PRN (09:17)
[2022-05-08 14:00] VITALS: BP 148/74
[2022-05-08 20:42] VITALS: BP 158/76
[2022-05-08] MEDS: SENNA 8.6 MG TAB (SENOKOT) PO SCH (21:00)
[2022-05-08] MEDS: LEVEMIR (INSULIN DETEMIR) 1 UNITS/0.01ML SC SCH (21:00)
[2022-05-08] MEDS: AMITRIPTYLINE 10MG TABLET PO SCH (21:54)
[2022-05-08] MEDS: CYCLOBENZAPRINE 5MG TABLET PO SCH (21:54)
[2022-05-08] MEDS: **NOTE PATIENT COMMENT** MISC XX SCH (21:56)
[2022-05-09 05:25] VITALS: BP 149/68
[2022-05-09] MEDS: COMBIVENT RESPIMAT 100-20MCG INHALER 4GM INH SCH (07:19)
[2022-05-09] MEDS: INSULIN LISPRO (NovoLOG) PER UNIT SC SCH ×4 (07:30→21:00)
[2022-05-09] MEDS: PANTOPRAZOLE 40MG TAB (PROTONIX) PO SCH (08:14)
[2022-05-09] MEDS: VITAMIN D 1,000 INTERNATIONAL UNITS TABLET PO SCH (08:14)
[2022-05-09] MEDS: MORPHINE 30 MG SA TAB PO SCH ×2 (08:14→20:28)
[2022-05-09] MEDS: ATORVASTATIN 10 MG TAB PO SCH (08:14)
[2022-05-09] MEDS: MYCOPHENOLATE MOFETIL 250 MG CAP (J7517) PO SCH ×2 (08:14→20:28)
[2022-05-09] MEDS: ENOXAPARIN 40MG/0.4ML SYRINGE (J1650 PER 10MG) SC SCH (08:15)
[2022-05-09] MEDS: DOCUSATE SODIUM 100MG CAPSULE PO SCH ×2 (08:16→21:00)
[2022-05-09] MEDS: amLODIPine 5 MG TAB PO SCH (08:16)
[2022-05-09] MEDS: SODIUM CHLORIDE 0.9% INJ 10 ML SYR IV SCH (08:16)
[2022-05-09] MEDS: LIDOCAINE 5% (LIDODERM) PATCH TD SCH (08:16)
[2022-05-09] MEDS: ACETAMINOPHEN 500 MG TAB PO SCH ×3 (08:17→21:00)
[2022-05-09] MEDS: IPRATROPIUM 0.5MG/ALBUTEROL 2.5MG INH SOL UD 3ML (DUONEB) NEB SCH ×4 (13:02→23:24)
[2022-05-09 14:00] VITALS: BP 167/70
[2022-05-09 20:00] VITALS: BP 145/70
[2022-05-09] MEDS: AMITRIPTYLINE 10MG TABLET PO SCH (20:28)
[2022-05-09] MEDS: CYCLOBENZAPRINE 5MG TABLET PO SCH (20:28)
[2022-05-09] MEDS: **NOTE PATIENT COMMENT** MISC XX SCH (21:00)
[2022-05-09] MEDS: SENNA 8.6 MG TAB (SENOKOT) PO SCH (21:00)
[2022-05-09] MEDS: LEVEMIR (INSULIN DETEMIR) 1 UNITS/0.01ML SC SCH (21:00)
[2022-05-10] MEDS: IPRATROPIUM 0.5MG/ALBUTEROL 2.5MG INH SOL UD 3ML (DUONEB) NEB SCH ×6 (03:23→23:39)
[2022-05-10 06:00] VITALS: BP 138/65
[2022-05-10] MEDS: SODIUM CHLORIDE 0.9% INJ 10 ML SYR IV PRN (06:26)
[2022-05-10 06:56] LABS: BASO % 0.4 % (0.0-1.0); EOS # 0.4 10^3/uL (0.0-0.5); HEMATOCRIT 28.1 % (36.0-47.0); HEMOGLOBIN 9.1 g/dl (12.0-15.5); LYMPH # 1.2 10^3/uL (1.5-5.0); LYMPH % 24.1 % (24.0-44.0); MEAN CORPUSCULAR HEMOGLOBIN 28.3 pg (27.0-33.0); MEAN CORPUSCULAR HGB CONC 32.4 g/dl (32.0-36.5); MEAN CORPUSCULAR VOLUME 87.5 fl (80.0-96.0); MONO # 0.4 10^3/uL (0.0-0.8); NEUTROPHILS # 2.7 10^3/uL (1.5-8.5); NEUTROPHILS % 57.3 % (36.0-66.0); PLATELET COUNT, AUTOMATED 264 10^3/uL (150-450); RED BLOOD COUNT 3.21 10^6/uL (4.00-5.40); WHITE BLOOD COUNT 4.8 10^3/uL (4.0-10.0)
[2022-05-10] MEDS: INSULIN LISPRO (NovoLOG) PER UNIT SC SCH ×4 (07:30→20:22)
[2022-05-10 07:33] LABS: BLOOD UREA NITROGEN 15 MG/DL (7-18); CALCIUM LEVEL 8.3 MG/DL (8.8-10.2); CARBON DIOXIDE LEVEL 30 MEQ/L (21-32); CHLORIDE LEVEL 108 MEQ/L (98-107); CREATININE FOR GFR 0.44 MG/DL (0.55-1.30); GLOMERULAR FILTRATION RATE > 60.0 (>39); GLUCOSE, FASTING 101 MG/DL (70-100); POTASSIUM SERUM 4.4 MEQ/L (3.5-5.1); SODIUM LEVEL 142 MEQ/L (136-145)
[2022-05-10] MEDS: LIDOCAINE 5% (LIDODERM) PATCH TD SCH (08:51)
[2022-05-10] MEDS: ENOXAPARIN 40MG/0.4ML SYRINGE (J1650 PER 10MG) SC SCH (08:54)
[2022-05-10] MEDS: PANTOPRAZOLE 40MG TAB (PROTONIX) PO SCH (08:54)
[2022-05-10] MEDS: VITAMIN D 1,000 INTERNATIONAL UNITS TABLET PO SCH (08:54)
[2022-05-10] MEDS: ATORVASTATIN 10 MG TAB PO SCH (08:54)
[2022-05-10] MEDS: MYCOPHENOLATE MOFETIL 250 MG CAP (J7517) PO SCH ×2 (08:54→20:20)
[2022-05-10] MEDS: amLODIPine 5 MG TAB PO SCH (08:55)
[2022-05-10] MEDS: MORPHINE 30 MG SA TAB PO SCH ×2 (08:56→20:21)
[2022-05-10] MEDS: DOCUSATE SODIUM 100MG CAPSULE PO SCH ×2 (08:57→20:21)
[2022-05-10] MEDS: ACETAMINOPHEN 500 MG TAB PO SCH ×3 (08:57→20:21)
[2022-05-10] MEDS: SODIUM CHLORIDE 0.9% INJ 10 ML SYR IV SCH (08:57)
[2022-05-10] MEDS: CYCLOBENZAPRINE 5MG TABLET PO PRN (08:58)
[2022-05-10 14:00] VITALS: BP 166/72
[2022-05-10 20:00] VITALS: BP 149/66
[2022-05-10] MEDS: SENNA 8.6 MG TAB (SENOKOT) PO SCH (20:21)
[2022-05-10] MEDS: CYCLOBENZAPRINE 5MG TABLET PO SCH (20:21)
[2022-05-10] MEDS: AMITRIPTYLINE 10MG TABLET PO SCH (20:21)
[2022-05-10] MEDS: **NOTE PATIENT COMMENT** MISC XX SCH (20:22)
[2022-05-10] MEDS: LEVEMIR (INSULIN DETEMIR) 1 UNITS/0.01ML SC SCH (20:23)
[2022-05-11] MEDS: IPRATROPIUM 0.5MG/ALBUTEROL 2.5MG INH SOL UD 3ML (DUONEB) NEB SCH ×6 (04:00→23:38)
[2022-05-11 06:00] VITALS: BP 150/80
[2022-05-11] MEDS: INSULIN LISPRO (NovoLOG) PER UNIT SC SCH ×4 (07:30→19:35)
[2022-05-11] MEDS: ENOXAPARIN 40MG/0.4ML SYRINGE (J1650 PER 10MG) SC SCH (09:39)
[2022-05-11] MEDS: VITAMIN D 1,000 INTERNATIONAL UNITS TABLET PO SCH (09:39)
[2022-05-11] MEDS: DOCUSATE SODIUM 100MG CAPSULE PO SCH ×2 (09:39→20:19)
[2022-05-11] MEDS: ATORVASTATIN 10 MG TAB PO SCH (09:40)
[2022-05-11] MEDS: amLODIPine 5 MG TAB PO SCH (09:40)
[2022-05-11] MEDS: CYCLOBENZAPRINE 5MG TABLET PO SCH ×2 (09:40→20:27)
[2022-05-11] MEDS: MYCOPHENOLATE MOFETIL 250 MG CAP (J7517) PO SCH ×2 (09:40→20:21)
[2022-05-11] MEDS: PANTOPRAZOLE 40MG TAB (PROTONIX) PO SCH (09:40)
[2022-05-11] MEDS: MORPHINE 30 MG SA TAB PO SCH ×2 (09:41→20:21)
[2022-05-11] MEDS: ACETAMINOPHEN 500 MG TAB PO SCH ×3 (09:41→20:21)
[2022-05-11] MEDS: SODIUM CHLORIDE 0.9% INJ 10 ML SYR IV SCH (09:42)
[2022-05-11] MEDS: LIDOCAINE 5% (LIDODERM) PATCH TD SCH (09:42)
[2022-05-11 14:00] VITALS: BP 156/67
[2022-05-11] MEDS: POLYSPORIN TOPICAL OINTMENT 15GM TOP SCH (15:11)
[2022-05-11] MEDS: CYCLOBENZAPRINE 5MG TABLET PO PRN ×2 (16:53→17:15)
[2022-05-11 20:00] VITALS: BP 150/80
[2022-05-11] MEDS: SENNA 8.6 MG TAB (SENOKOT) PO SCH (20:19)
[2022-05-11] MEDS: AMITRIPTYLINE 10MG TABLET PO SCH (20:20)
[2022-05-11] MEDS: **NOTE PATIENT COMMENT** MISC XX SCH (20:22)
[2022-05-11] MEDS: LEVEMIR (INSULIN DETEMIR) 1 UNITS/0.01ML SC SCH (20:22)
[2022-05-12] MEDS: IPRATROPIUM 0.5MG/ALBUTEROL 2.5MG INH SOL UD 3ML (DUONEB) NEB SCH ×5 (05:24→20:26)
[2022-05-12 06:00] VITALS: BP 139/66
[2022-05-12] MEDS: VITAMIN D 1,000 INTERNATIONAL UNITS TABLET PO SCH (07:24)
[2022-05-12] MEDS: MYCOPHENOLATE MOFETIL 250 MG CAP (J7517) PO SCH ×2 (07:24→20:13)
[2022-05-12] MEDS: LIDOCAINE 5% (LIDODERM) PATCH TD SCH (07:24)
[2022-05-12] MEDS: PANTOPRAZOLE 40MG TAB (PROTONIX) PO SCH (07:24)
[2022-05-12] MEDS: MORPHINE 30 MG SA TAB PO SCH ×2 (07:24→20:15)
[2022-05-12] MEDS: INSULIN LISPRO (NovoLOG) PER UNIT SC SCH ×4 (07:25→20:18)
[2022-05-12] MEDS: ENOXAPARIN 40MG/0.4ML SYRINGE (J1650 PER 10MG) SC SCH (07:25)
[2022-05-12] MEDS: SODIUM CHLORIDE 0.9% INJ 10 ML SYR IV SCH (07:26)
[2022-05-12] MEDS: DOCUSATE SODIUM 100MG CAPSULE PO SCH ×2 (07:26→20:14)
[2022-05-12] MEDS: ATORVASTATIN 10 MG TAB PO SCH (07:26)
[2022-05-12] MEDS: amLODIPine 5 MG TAB PO SCH (07:26)
[2022-05-12] MEDS: ACETAMINOPHEN 500 MG TAB PO SCH ×3 (07:27→20:17)
[2022-05-12] MEDS: CYCLOBENZAPRINE 5MG TABLET PO PRN (09:16)
[2022-05-12 14:00] VITALS: BP 154/67
[2022-05-12 19:26] VITALS: BP 150/58
[2022-05-12] MEDS: AMITRIPTYLINE 10MG TABLET PO SCH (20:13)
[2022-05-12] MEDS: CYCLOBENZAPRINE 5MG TABLET PO SCH (20:14)
[2022-05-12] MEDS: LEVEMIR (INSULIN DETEMIR) 1 UNITS/0.01ML SC SCH (20:15)
[2022-05-12] MEDS: SENNA 8.6 MG TAB (SENOKOT) PO SCH (20:17)
[2022-05-12] MEDS: **NOTE PATIENT COMMENT** MISC XX SCH (20:18)
[2022-05-13] MEDS: IPRATROPIUM 0.5MG/ALBUTEROL 2.5MG INH SOL UD 3ML (DUONEB) NEB SCH ×6 (04:32→20:45)
[2022-05-13 05:28] VITALS: BP 146/71
[2022-05-13] MEDS: INSULIN LISPRO (NovoLOG) PER UNIT SC SCH ×4 (07:30→21:00)
[2022-05-13] MEDS: ACETAMINOPHEN 500 MG TAB PO SCH ×3 (08:15→21:00)
[2022-05-13] MEDS: DOCUSATE SODIUM 100MG CAPSULE PO SCH ×2 (09:15→21:00)
[2022-05-13] MEDS: MYCOPHENOLATE MOFETIL 250 MG CAP (J7517) PO SCH ×2 (09:15→21:03)
[2022-05-13] MEDS: VITAMIN D 1,000 INTERNATIONAL UNITS TABLET PO SCH (09:16)
[2022-05-13] MEDS: CYCLOBENZAPRINE 5MG TABLET PO PRN (09:16)
[2022-05-13] MEDS: amLODIPine 5 MG TAB PO SCH (09:16)
[2022-05-13] MEDS: ATORVASTATIN 10 MG TAB PO SCH (09:16)
[2022-05-13] MEDS: PANTOPRAZOLE 40MG TAB (PROTONIX) PO SCH (09:16)
[2022-05-13] MEDS: MORPHINE 30 MG SA TAB PO SCH ×2 (09:17→21:04)
[2022-05-13] MEDS: ENOXAPARIN 40MG/0.4ML SYRINGE (J1650 PER 10MG) SC SCH (09:19)
[2022-05-13] MEDS: LIDOCAINE 5% (LIDODERM) PATCH TD SCH (09:19)
[2022-05-13] MEDS: SODIUM CHLORIDE 0.9% INJ 10 ML SYR IV SCH (09:19)
[2022-05-13] MEDS: POLYSPORIN TOPICAL OINTMENT 15GM TOP SCH (09:20)
[2022-05-13 14:00] VITALS: BP 170/71
[2022-05-13 20:00] VITALS: BP 170/73
[2022-05-13] MEDS: LEVEMIR (INSULIN DETEMIR) 1 UNITS/0.01ML SC SCH (21:00)
[2022-05-13] MEDS: AMITRIPTYLINE 10MG TABLET PO SCH (21:03)
[2022-05-13] MEDS: SENNA 8.6 MG TAB (SENOKOT) PO SCH (21:04)
[2022-05-13] MEDS: **NOTE PATIENT COMMENT** MISC XX SCH (21:06)
[2022-05-13] MEDS: CYCLOBENZAPRINE 5MG TABLET PO SCH (21:07)
[2022-05-13 21:17] VITALS: BP 150/60
[2022-05-14] MEDS: IPRATROPIUM 0.5MG/ALBUTEROL 2.5MG INH SOL UD 3ML (DUONEB) NEB SCH ×6 (03:16→19:24)
[2022-05-14 06:00] VITALS: BP 197/90
[2022-05-14 06:57] VITALS: BP 160/64
[2022-05-14] MEDS: INSULIN LISPRO (NovoLOG) PER UNIT SC SCH ×4 (07:30→20:01)
[2022-05-14] MEDS: MYCOPHENOLATE MOFETIL 250 MG CAP (J7517) PO SCH ×2 (07:44→21:03)
[2022-05-14] MEDS: ENOXAPARIN 40MG/0.4ML SYRINGE (J1650 PER 10MG) SC SCH (07:44)
[2022-05-14] MEDS: PANTOPRAZOLE 40MG TAB (PROTONIX) PO SCH (07:45)
[2022-05-14] MEDS: ACETAMINOPHEN 500 MG TAB PO SCH ×3 (07:45→21:00)
[2022-05-14] MEDS: VITAMIN D 1,000 INTERNATIONAL UNITS TABLET PO SCH (07:45)
[2022-05-14] MEDS: amLODIPine 5 MG TAB PO SCH (07:46)
[2022-05-14] MEDS: ATORVASTATIN 10 MG TAB PO SCH (07:47)
[2022-05-14] MEDS: MORPHINE 30 MG SA TAB PO SCH ×2 (07:47→21:04)
[2022-05-14] MEDS: DOCUSATE SODIUM 100MG CAPSULE PO SCH ×2 (07:47→21:04)
[2022-05-14] MEDS: LIDOCAINE 5% (LIDODERM) PATCH TD SCH (07:48)
[2022-05-14] MEDS: SODIUM CHLORIDE 0.9% INJ 10 ML SYR IV SCH (07:52)
[2022-05-14 14:13] VITALS: BP 140/30
[2022-05-14 19:51] VITALS: BP 130/50
[2022-05-14] MEDS: CYCLOBENZAPRINE 5MG TABLET PO SCH (21:03)
[2022-05-14] MEDS: AMITRIPTYLINE 10MG TABLET PO SCH (21:03)
[2022-05-14] MEDS: SENNA 8.6 MG TAB (SENOKOT) PO SCH (21:03)
[2022-05-14] MEDS: LEVEMIR (INSULIN DETEMIR) 1 UNITS/0.01ML SC SCH (21:04)
[2022-05-14] MEDS: **NOTE PATIENT COMMENT** MISC XX SCH (21:04)
[2022-05-15] MEDS: IPRATROPIUM 0.5MG/ALBUTEROL 2.5MG INH SOL UD 3ML (DUONEB) NEB SCH ×7 (03:52→23:12)
[2022-05-15 05:41] VITALS: BP 120/58
[2022-05-15] MEDS: DOCUSATE SODIUM 100MG CAPSULE PO SCH ×2 (09:00→21:00)
[2022-05-15] MEDS: LIDOCAINE 5% (LIDODERM) PATCH TD SCH (09:10)
[2022-05-15] MEDS: MORPHINE 30 MG SA TAB PO SCH ×2 (09:11→21:14)
[2022-05-15] MEDS: PANTOPRAZOLE 40MG TAB (PROTONIX) PO SCH (09:12)
[2022-05-15] MEDS: MYCOPHENOLATE MOFETIL 250 MG CAP (J7517) PO SCH ×2 (09:12→21:15)
[2022-05-15] MEDS: VITAMIN D 1,000 INTERNATIONAL UNITS TABLET PO SCH (09:12)
[2022-05-15] MEDS: amLODIPine 5 MG TAB PO SCH (09:12)
[2022-05-15] MEDS: ACETAMINOPHEN 500 MG TAB PO SCH ×3 (09:12→21:00)
[2022-05-15] MEDS: ATORVASTATIN 10 MG TAB PO SCH (09:12)
[2022-05-15] MEDS: SODIUM CHLORIDE 0.9% INJ 10 ML SYR IV SCH (09:13)
[2022-05-15] MEDS: ENOXAPARIN 40MG/0.4ML SYRINGE (J1650 PER 10MG) SC SCH (09:13)
[2022-05-15] MEDS: INSULIN LISPRO (NovoLOG) PER UNIT SC SCH ×4 (09:14→20:52)
[2022-05-15 14:00] VITALS: BP 156/68
[2022-05-15 20:00] VITALS: BP 158/70
[2022-05-15] MEDS: LEVEMIR (INSULIN DETEMIR) 1 UNITS/0.01ML SC SCH (20:52)
[2022-05-15] MEDS: SENNA 8.6 MG TAB (SENOKOT) PO SCH (21:00)
[2022-05-15] MEDS: AMITRIPTYLINE 10MG TABLET PO SCH (21:14)
[2022-05-15] MEDS: CYCLOBENZAPRINE 5MG TABLET PO SCH (21:15)
[2022-05-15] MEDS: **NOTE PATIENT COMMENT** MISC XX SCH (21:16)
[2022-05-16] MEDS: IPRATROPIUM 0.5MG/ALBUTEROL 2.5MG INH SOL UD 3ML (DUONEB) NEB SCH ×5 (03:06→19:38)
[2022-05-16 06:00] VITALS: BP 147/87
[2022-05-16] MEDS: DOCUSATE SODIUM 100MG CAPSULE PO SCH ×2 (07:06→19:39)
[2022-05-16] MEDS: ACETAMINOPHEN 500 MG TAB PO SCH ×3 (07:06→19:40)
[2022-05-16] MEDS: MYCOPHENOLATE MOFETIL 250 MG CAP (J7517) PO SCH ×2 (07:23→20:20)
[2022-05-16] MEDS: VITAMIN D 1,000 INTERNATIONAL UNITS TABLET PO SCH (07:23)
[2022-05-16] MEDS: LIDOCAINE 5% (LIDODERM) PATCH TD SCH (07:23)
[2022-05-16] MEDS: PANTOPRAZOLE 40MG TAB (PROTONIX) PO SCH (07:24)
[2022-05-16] MEDS: ATORVASTATIN 10 MG TAB PO SCH (07:24)
[2022-05-16] MEDS: ENOXAPARIN 40MG/0.4ML SYRINGE (J1650 PER 10MG) SC SCH (07:24)
[2022-05-16] MEDS: MORPHINE 30 MG SA TAB PO SCH ×2 (07:24→20:20)
[2022-05-16] MEDS: amLODIPine 5 MG TAB PO SCH (07:24)
[2022-05-16] MEDS: INSULIN LISPRO (NovoLOG) PER UNIT SC SCH ×4 (07:25→19:40)
[2022-05-16] MEDS: SODIUM CHLORIDE 0.9% INJ 10 ML SYR IV SCH (07:25)
[2022-05-16 14:00] VITALS: BP 160/71
[2022-05-16] MEDS: LEVEMIR (INSULIN DETEMIR) 1 UNITS/0.01ML SC SCH (19:40)
[2022-05-16] MEDS: SENNA 8.6 MG TAB (SENOKOT) PO SCH (19:40)
[2022-05-16 20:00] VITALS: BP 149/68
[2022-05-16] MEDS: AMITRIPTYLINE 10MG TABLET PO SCH (20:20)
[2022-05-16] MEDS: CYCLOBENZAPRINE 5MG TABLET PO SCH (20:20)
[2022-05-16] MEDS: **NOTE PATIENT COMMENT** MISC XX SCH (20:21)
[2022-05-17] MEDS: IPRATROPIUM 0.5MG/ALBUTEROL 2.5MG INH SOL UD 3ML (DUONEB) NEB SCH ×7 (04:00→23:12)
[2022-05-17 06:00] VITALS: BP 139/71
[2022-05-17 07:25] LABS: BLOOD UREA NITROGEN 11 MG/DL (7-18); CALCIUM LEVEL 8.7 MG/DL (8.8-10.2); CARBON DIOXIDE LEVEL 26 MEQ/L (21-32); CHLORIDE LEVEL 107 MEQ/L (98-107); CREATININE FOR GFR 0.42 MG/DL (0.55-1.30); GLOMERULAR FILTRATION RATE > 60.0 (>39); GLUCOSE, FASTING 106 MG/DL (70-100); POTASSIUM SERUM 4.3 MEQ/L (3.5-5.1); SODIUM LEVEL 139 MEQ/L (136-145)
[2022-05-17] MEDS: VITAMIN D 1,000 INTERNATIONAL UNITS TABLET PO SCH (09:14)
[2022-05-17] MEDS: amLODIPine 5 MG TAB PO SCH (09:14)
[2022-05-17] MEDS: PANTOPRAZOLE 40MG TAB (PROTONIX) PO SCH (09:14)
[2022-05-17] MEDS: INSULIN LISPRO (NovoLOG) PER UNIT SC SCH ×4 (09:14→20:34)
[2022-05-17] MEDS: ATORVASTATIN 10 MG TAB PO SCH (09:14)
[2022-05-17] MEDS: MORPHINE 30 MG SA TAB PO SCH ×2 (09:15→20:33)
[2022-05-17] MEDS: DOCUSATE SODIUM 100MG CAPSULE PO SCH ×2 (09:15→20:34)
[2022-05-17] MEDS: MYCOPHENOLATE MOFETIL 250 MG CAP (J7517) PO SCH ×2 (09:15→20:32)
[2022-05-17] MEDS: SODIUM CHLORIDE 0.9% INJ 10 ML SYR IV SCH (09:16)
[2022-05-17] MEDS: LIDOCAINE 5% (LIDODERM) PATCH TD SCH (09:16)
[2022-05-17] MEDS: ACETAMINOPHEN 500 MG TAB PO SCH ×3 (09:16→20:33)
[2022-05-17] MEDS: ENOXAPARIN 40MG/0.4ML SYRINGE (J1650 PER 10MG) SC SCH (09:16)
[2022-05-17 14:00] VITALS: BP 138/63
[2022-05-17 20:19] VITALS: BP 148/70
[2022-05-17] MEDS: LEVEMIR (INSULIN DETEMIR) 1 UNITS/0.01ML SC SCH ×2 (20:32→20:39)
[2022-05-17] MEDS: AMITRIPTYLINE 10MG TABLET PO SCH (20:33)
[2022-05-17] MEDS: SENNA 8.6 MG TAB (SENOKOT) PO SCH (20:33)
[2022-05-17] MEDS: CYCLOBENZAPRINE 5MG TABLET PO SCH (20:34)
[2022-05-17] MEDS: **NOTE PATIENT COMMENT** MISC XX SCH (20:40)
[2022-05-18] MEDS: IPRATROPIUM 0.5MG/ALBUTEROL 2.5MG INH SOL UD 3ML (DUONEB) NEB SCH ×5 (03:21→20:03)
[2022-05-18 05:54] VITALS: BP 144/76
[2022-05-18] MEDS: INSULIN LISPRO (NovoLOG) PER UNIT SC SCH ×4 (07:30→21:00)
[2022-05-18] MEDS: LIDOCAINE 5% (LIDODERM) PATCH TD SCH (09:41)
[2022-05-18] MEDS: CYCLOBENZAPRINE 5MG TABLET PO PRN (09:42)
[2022-05-18] MEDS: PANTOPRAZOLE 40MG TAB (PROTONIX) PO SCH (09:42)
[2022-05-18] MEDS: amLODIPine 5 MG TAB PO SCH (09:42)
[2022-05-18] MEDS: MYCOPHENOLATE MOFETIL 250 MG CAP (J7517) PO SCH ×2 (09:42→21:33)
[2022-05-18] MEDS: DOCUSATE SODIUM 100MG CAPSULE PO SCH ×2 (09:42→21:33)
[2022-05-18] MEDS: ATORVASTATIN 10 MG TAB PO SCH (09:42)
[2022-05-18] MEDS: VITAMIN D 1,000 INTERNATIONAL UNITS TABLET PO SCH (09:42)
[2022-05-18] MEDS: MORPHINE 30 MG SA TAB PO SCH ×2 (09:43→21:34)
[2022-05-18] MEDS: ENOXAPARIN 40MG/0.4ML SYRINGE (J1650 PER 10MG) SC SCH (09:44)
[2022-05-18] MEDS: SODIUM CHLORIDE 0.9% INJ 10 ML SYR IV SCH (09:44)
[2022-05-18] MEDS: ACETAMINOPHEN 500 MG TAB PO SCH ×3 (09:44→21:00)
[2022-05-18 14:00] VITALS: BP 149/68
[2022-05-18 20:00] VITALS: BP 162/60
[2022-05-18] MEDS: LEVEMIR (INSULIN DETEMIR) 1 UNITS/0.01ML SC SCH (21:00)
[2022-05-18] MEDS: **NOTE PATIENT COMMENT** MISC XX SCH (21:00)
[2022-05-18] MEDS: SENNA 8.6 MG TAB (SENOKOT) PO SCH (21:33)
[2022-05-18] MEDS: CYCLOBENZAPRINE 5MG TABLET PO SCH (21:33)
[2022-05-18] MEDS: AMITRIPTYLINE 10MG TABLET PO SCH (21:33)
[2022-05-19] MEDS: IPRATROPIUM 0.5MG/ALBUTEROL 2.5MG INH SOL UD 3ML (DUONEB) NEB SCH ×7 (04:00→23:25)
[2022-05-19 05:29] VITALS: BP_SYST 133; BP_SYST 172; BP_DIAS 74; BP_DIAS 78
[2022-05-19] MEDS: INSULIN LISPRO (NovoLOG) PER UNIT SC SCH ×4 (07:15→20:37)
[2022-05-19] MEDS: ACETAMINOPHEN 500 MG TAB PO SCH ×3 (09:00→20:41)
[2022-05-19] MEDS: MYCOPHENOLATE MOFETIL 250 MG CAP (J7517) PO SCH ×2 (09:32→20:38)
[2022-05-19] MEDS: CYCLOBENZAPRINE 5MG TABLET PO PRN (09:32)
[2022-05-19] MEDS: PANTOPRAZOLE 40MG TAB (PROTONIX) PO SCH (09:32)
[2022-05-19] MEDS: ATORVASTATIN 10 MG TAB PO SCH (09:32)
[2022-05-19] MEDS: VITAMIN D 1,000 INTERNATIONAL UNITS TABLET PO SCH (09:32)
[2022-05-19] MEDS: ENOXAPARIN 40MG/0.4ML SYRINGE (J1650 PER 10MG) SC SCH (09:32)
[2022-05-19] MEDS: MORPHINE 30 MG SA TAB PO SCH ×2 (09:33→20:39)
[2022-05-19] MEDS: SODIUM CHLORIDE 0.9% INJ 10 ML SYR IV SCH (09:33)
[2022-05-19] MEDS: amLODIPine 5 MG TAB PO SCH (09:33)
[2022-05-19] MEDS: DOCUSATE SODIUM 100MG CAPSULE PO SCH ×2 (09:34→20:38)
[2022-05-19] MEDS: LIDOCAINE 5% (LIDODERM) PATCH TD SCH (09:35)
[2022-05-19 14:00] VITALS: BP 157/66
[2022-05-19 20:00] VITALS: BP 169/84
[2022-05-19] MEDS: LEVEMIR (INSULIN DETEMIR) 1 UNITS/0.01ML SC SCH (20:38)
[2022-05-19] MEDS: AMITRIPTYLINE 10MG TABLET PO SCH (20:38)
[2022-05-19] MEDS: CYCLOBENZAPRINE 5MG TABLET PO SCH (20:38)
[2022-05-19] MEDS: SENNA 8.6 MG TAB (SENOKOT) PO SCH (20:39)
[2022-05-19] MEDS: **NOTE PATIENT COMMENT** MISC XX SCH (20:41)
[2022-05-19 23:00] VITALS: BP 124/60
[2022-05-20] MEDS: IPRATROPIUM 0.5MG/ALBUTEROL 2.5MG INH SOL UD 3ML (DUONEB) NEB SCH ×4 (04:00→15:15)
[2022-05-20 06:00] VITALS: BP 128/74
[2022-05-20] MEDS: INSULIN LISPRO (NovoLOG) PER UNIT SC SCH ×2 (07:30→12:35)
[2022-05-20] MEDS: ENOXAPARIN 40MG/0.4ML SYRINGE (J1650 PER 10MG) SC SCH (07:39)
[2022-05-20 07:40] VITALS: BP 128/74
[2022-05-20] MEDS: amLODIPine 5 MG TAB PO SCH (07:40)
[2022-05-20] MEDS: ATORVASTATIN 10 MG TAB PO SCH (07:40)
[2022-05-20] MEDS: MYCOPHENOLATE MOFETIL 250 MG CAP (J7517) PO SCH (07:40)
[2022-05-20] MEDS: SENNA 8.6 MG TAB (SENOKOT) PO SCH (07:41)
[2022-05-20] MEDS: PANTOPRAZOLE 40MG TAB (PROTONIX) PO SCH (07:41)
[2022-05-20] MEDS: MORPHINE 30 MG SA TAB PO SCH (07:41)
[2022-05-20] MEDS: LIDOCAINE 5% (LIDODERM) PATCH TD SCH (07:42)
[2022-05-20] MEDS: DOCUSATE SODIUM 100MG CAPSULE PO SCH (07:42)
[2022-05-20] MEDS: SODIUM CHLORIDE 0.9% INJ 10 ML SYR IV SCH (07:43)
[2022-05-20] MEDS: VITAMIN D 1,000 INTERNATIONAL UNITS TABLET PO SCH (07:47)
[2022-05-20] MEDS: ACETAMINOPHEN 500 MG TAB PO SCH ×2 (07:48→15:11)
[2022-05-20] MEDS ORDERED: LIDO5TD TD (10:47)
[2022-05-20] MEDS ORDERED: SLF IV ×2 (10:47)
[2022-05-20] MEDS ORDERED: LOVE1INJ SC (10:47)
[2022-05-20 14:00] VITALS: BP 129/58
== END 2022-05-20 16:15 | disposition home health service (06) | DRG 561 ==
LOC: M PM&R 14:54
PROVIDERS: ADMIT Physical Medicine & Rehabilitation; ATTEND Physical Medicine & Rehabilitation
DX: S72.111D Displaced fracture of greater trochanter of right femur, subsequent encounter for closed fracture with routine healing (principal); J44.9 Chronic obstructive pulmonary disease, unspecified; D63.8 Anemia in other chronic diseases classified elsewhere; E11.649 Type 2 diabetes mellitus with hypoglycemia without coma; K21.9 Gastro-esophageal reflux disease without esophagitis; Z74.09 Other reduced mobility; Z74.1 Need for assistance with personal care; Z96.611 Presence of right artificial shoulder joint; Z96.612 Presence of left artificial shoulder joint; Z96.653 Presence of artificial knee joint, bilateral; Z96.643 Presence of artificial hip joint, bilateral; Z96.698 Presence of other orthopedic joint implants; M06.9 Rheumatoid arthritis, unspecified; Z79.4 Long term (current) use of insulin; Z79.899 Other long term (current) drug therapy; Z88.1 Allergy status to other antibiotic agents; Z88.2 Allergy status to sulfonamides; Z88.6 Allergy status to analgesic agent; Z88.0 Allergy status to penicillin; Z88.8 Allergy status to other drugs, medicaments and biological substances; Z91.040 Latex allergy status; Z91.048 Other nonmedicinal substance allergy status; Z66 Do not resuscitate; I10 Essential (primary) hypertension; E78.5 Hyperlipidemia, unspecified; M81.0 Age-related osteoporosis without current pathological fracture; F32.A Depression, unspecified; F41.9 Anxiety disorder, unspecified; S90.812A Abrasion, left foot, initial encounter; Y99.8 Other external cause status; E11.621 Type 2 diabetes mellitus with foot ulcer; E11.42 Type 2 diabetes mellitus with diabetic polyneuropathy; L30.9 Dermatitis, unspecified

== ENCOUNTER → 2022-06-17 | Outpatient (CLI) | payer MEDICARE, BC ==
[~2022-06-17] MED LIST changes: +LIDO5TD TD; +LOVE1INJ SC; +SLF IV
== END ==
LOC: M SOG 08:07
PROVIDERS: ATTEND Orthopaedic Surgery
DX: M25.551 Pain in right hip (principal); Z96.641 Presence of right artificial hip joint

== ENCOUNTER → 2022-06-21 | Outpatient (REF) | payer MEDICARE, BC ==
[2022-06-21 09:41] LABS: HEMOGLOBIN A1c 6.2 %
[2022-06-21 09:50] LABS: ALBUMIN 3.4 GM/DL (3.2-5.2); ALT/SGPT 27 U/L (12-78); BILIRUBIN,TOTAL 0.4 MG/DL (0.2-1.0); BLOOD UREA NITROGEN 11 MG/DL (7-18); CALCIUM LEVEL 9.1 MG/DL (8.8-10.2); CARBON DIOXIDE LEVEL 26 MEQ/L (21-32); CHLORIDE LEVEL 106 MEQ/L (98-107); CREATININE FOR GFR 0.56 MG/DL (0.55-1.30); GLOMERULAR FILTRATION RATE > 60.0 (>39); GLUCOSE, FASTING 149 MG/DL (70-100); POTASSIUM SERUM 3.6 MEQ/L (3.5-5.1); SODIUM LEVEL 137 MEQ/L (136-145); TOTAL PROTEIN 7.4 GM/DL (6.4-8.2)
== END ==
LOC: M LAB REF 08:38
PROVIDERS: ATTEND Nurse Practitioner Family
DX: E11.69 Type 2 diabetes mellitus with other specified complication (principal)

== ENCOUNTER → 2022-07-28 | Outpatient (CLI) | payer MEDICARE, BC | LOC: M SOG 08:16 | PROVIDERS: ATTEND Orthopaedic Surgery | DX: M25.551 Pain in right hip (principal); Z96.643 Presence of artificial hip joint, bilateral ==

== ENCOUNTER → 2022-12-20 | Outpatient (REF) | payer MEDICARE, BC ==
[2022-12-20 10:16] LABS: BASO % 0.5 % (0.0-1.0); EOS # 0.5 10^3/uL (0.0-0.5); HEMATOCRIT 38.8 % (36.0-47.0); HEMOGLOBIN 12.8 g/dl (12.0-15.5); LYMPH # 1.5 10^3/uL (1.5-5.0); LYMPH % 18.4 % (24.0-44.0); MEAN CORPUSCULAR HEMOGLOBIN 29.2 pg (27.0-33.0); MEAN CORPUSCULAR VOLUME 88.4 fl (80.0-96.0); MONO # 0.7 10^3/uL (0.0-0.8); MONO % 8.9 % (2.0-8.0); NEUTROPHILS # 5.2 10^3/uL (1.5-8.5); NEUTROPHILS % 65.8 % (36.0-66.0); PLATELET COUNT, AUTOMATED 227 10^3/uL (150-450); RED BLOOD COUNT 4.39 10^6/uL (4.00-5.40); WHITE BLOOD COUNT 7.9 10^3/uL (4.0-10.0)
[2022-12-20 12:13] LABS: HEMOGLOBIN A1c 6.3 % (4.0-6.0)
[2022-12-20 16:22] LABS: AST/SGOT 23 U/L (<34); BLOOD UREA NITROGEN 19 MG/DL (9-23); CALCIUM LEVEL 8.5 MG/DL (8.3-10.6); CARBON DIOXIDE LEVEL 25 MMOL/L (20-31); CHLORIDE LEVEL 107 MMOL/L (98-107); CREATININE FOR GFR 0.58 MG/DL (0.55-1.30); GLOMERULAR FILTRATION RATE > 60.0 (>39); GLUCOSE, FASTING 194 MG/DL (74-106); POTASSIUM SERUM 4.1 MMOL/L (3.5-5.1); SODIUM LEVEL 139 MMOL/L (136-145)
[2022-12-20 16:23] LABS: ALBUMIN 3.4 G/DL (3.2-5.2); ALKALINE PHOSPHATASE 136 U/L (46-116); ALT/SGPT 19 U/L (7.0-40); BILIRUBIN,TOTAL 0.4 MG/DL (0.3-1.2); CHOLESTEROL LEVEL 110 MG/DL (<200); CHOLESTEROL RISK RATIO 2.16 (<5); HDL CHOLESTEROL 50.9 MG/DL (>40); NON-HDL-C 59.1 MG/DL; THYROID STIMULATING HORMONE 5.019 uIU/ML (0.55-4.78)
[2022-12-20 22:14] LABS: LDL CHOLESTEROL 39.9 MG/DL (<100); TOTAL PROTEIN 6.9 G/DL (5.7-8.2); TRIGLYCERIDES LEVEL 96 MG/DL (<150)
== END ==
LOC: M LAB REF 09:59
PROVIDERS: ATTEND Nurse Practitioner Family
DX: I10 Essential (primary) hypertension (principal); E11.69 Type 2 diabetes mellitus with other specified complication; D64.9 Anemia, unspecified; M05.9 Rheumatoid arthritis with rheumatoid factor, unspecified; G89.29 Other chronic pain

== ENCOUNTER → 2023-04-29 | Outpatient (REF) | payer MEDICARE, BC ==
[2023-04-29 14:56] LABS: HEMATOCRIT 40.9 % (36.0-47.0); HEMOGLOBIN 13.3 g/dl (12.0-15.5); MEAN CORPUSCULAR HEMOGLOBIN 28.4 pg (27.0-33.0); MEAN CORPUSCULAR HGB CONC 32.5 g/dl (32.0-36.5); MEAN CORPUSCULAR VOLUME 87.2 fl (80.0-96.0); PLATELET COUNT, AUTOMATED 210 10^3/uL (150-450); RED BLOOD COUNT 4.69 10^6/uL (4.00-5.40); WHITE BLOOD COUNT 9.3 10^3/uL (4.0-10.0)
== END ==
LOC: M LAB REF 13:59
PROVIDERS: ATTEND Internal Medicine Rheumatology
DX: Z79.899 Other long term (current) drug therapy (principal)

== ENCOUNTER → 2023-09-27 | Outpatient (REF) | payer MEDICARE, BC ==
[~2023-09-27] MED LIST changes: +ALBU90AE INH; +AMLO1TAB25 PO
[2023-09-29 21:10] LABS: ANTINUCLEAR ANTIBODIES DIRECT Negative (Negative); CYCLIC CITRULLINATED PEPTIDE 123 units (0-19)
== END ==
LOC: M LAB REF 14:51
PROVIDERS: ATTEND Internal Medicine Rheumatology
DX: M05.79 Rheumatoid arthritis with rheumatoid factor of multiple sites without organ or systems involvement (principal); Z79.899 Other long term (current) drug therapy

== ENCOUNTER → 2023-10-10 | Outpatient (REF) | payer MEDICARE, BC ==
[2023-10-10 15:41] LABS: BASO # 0.1 10^3/uL (0.0-0.2); BASO % 0.5 % (0.0-1.0); EOS # 0.2 10^3/uL (0.0-0.5); EOS % 1.6 % (0.0-3.0); HEMATOCRIT 40.3 % (36.0-47.0); HEMOGLOBIN 13.3 g/dl (12.0-15.5); LYMPH # 0.7 10^3/uL (1.5-5.0); LYMPH % 7.7 % (24.0-44.0); MEAN CORPUSCULAR HEMOGLOBIN 28.6 pg (27.0-33.0); MEAN CORPUSCULAR VOLUME 86.7 fl (80.0-96.0); MONO # 0.6 10^3/uL (0.0-0.8); NEUTROPHILS # 7.9 10^3/uL (1.5-8.5); PLATELET COUNT, AUTOMATED 259 10^3/uL (150-450); RED BLOOD COUNT 4.65 10^6/uL (4.00-5.40); WHITE BLOOD COUNT 9.4 10^3/uL (4.0-10.0)
[2023-10-10 16:13] LABS: ALBUMIN 3.6 G/DL (3.2-5.2); ALKALINE PHOSPHATASE 127 U/L (46-116); ALT/SGPT 13 U/L (7.0-40); AST/SGOT 16 U/L (<34); BILIRUBIN,TOTAL 0.4 MG/DL (0.3-1.2); BLOOD UREA NITROGEN 19 MG/DL (9-23); CALCIUM LEVEL 9.3 MG/DL (8.3-10.6); CARBON DIOXIDE LEVEL 28 MMOL/L (20-31); CHLORIDE LEVEL 105 MMOL/L (98-107); CREATININE FOR GFR 0.58 MG/DL (0.55-1.30); GLOMERULAR FILTRATION RATE > 60.0 (>39); GLUCOSE, FASTING 120 MG/DL (74-106); POTASSIUM SERUM 4.1 MMOL/L (3.5-5.1); SODIUM LEVEL 139 MMOL/L (136-145); TOTAL PROTEIN 7.3 G/DL (5.7-8.2)
[2023-10-10 16:43] LABS: ERYTHROCYTE SEDIMENTATION RATE 49 mm/hr (0-30)
== END ==
LOC: M LAB REF 15:33
PROVIDERS: ATTEND Nurse Practitioner Family
DX: M25.552 Pain in left hip (principal)

== ENCOUNTER → 2023-10-25 | Outpatient (REF) | payer MEDICARE, BC ==
[2023-10-27 14:09] LABS: ANTINUCLEAR ANTIBODIES DIRECT Negative (Negative)
== END ==
LOC: M LAB REF 14:28
PROVIDERS: ATTEND Internal Medicine Rheumatology
DX: M05.79 Rheumatoid arthritis with rheumatoid factor of multiple sites without organ or systems involvement (principal); Z79.899 Other long term (current) drug therapy

== ENCOUNTER → 2023-11-24 | Outpatient (REF) | payer MEDICARE, BC ==
[2023-11-24 16:07] LABS: TOTAL 25(OH) VITAMIN D 32.3 NG/ML (20.0-100.0)
== END ==
LOC: M LAB REF 14:52
PROVIDERS: ATTEND Ophthalmology
DX: Z13.5 Encounter for screening for eye and ear disorders (principal)

== ENCOUNTER → 2024-06-18 | Outpatient (REF) | payer MEDICARE, BC ==
[~2024-06-18] MED LIST changes: -ALBU90AE INH; +ALBU90AE2 INH
[2024-06-18 09:54] LABS: BASO # 0.1 10^3/uL (0.0-0.2); EOS # 0.6 10^3/uL (0.0-0.5); HEMATOCRIT 36.3 % (36.0-47.0); HEMOGLOBIN 11.9 g/dl (12.0-15.5); LYMPH # 1.1 10^3/uL (1.5-5.0); LYMPH % 18.7 % (24.0-44.0); MEAN CORPUSCULAR HGB CONC 32.8 g/dl (32.0-36.5); MEAN CORPUSCULAR VOLUME 88.3 fl (80.0-96.0); MONO # 0.7 10^3/uL (0.0-0.8); MONO % 11.6 % (2.0-8.0); NEUTROPHILS # 3.6 10^3/uL (1.5-8.5); NEUTROPHILS % 59.5 % (36.0-66.0); PLATELET COUNT, AUTOMATED 231 10^3/uL (150-450); RED BLOOD COUNT 4.11 10^6/uL (4.00-5.40); WHITE BLOOD COUNT 6.1 10^3/uL (4.0-10.0)
[2024-06-18 10:05] LABS: HEMOGLOBIN A1c 6.8 % (4.0-6.0)
[2024-06-18 10:19] LABS: ALBUMIN 3.6 G/DL (3.2-5.2); ALKALINE PHOSPHATASE 130 U/L (46-116); ALT/SGPT 16 U/L (7.0-40); AST/SGOT 17 U/L (<34); BILIRUBIN,TOTAL 0.7 MG/DL (0.3-1.2); BLOOD UREA NITROGEN 12 MG/DL (9-23); CALCIUM LEVEL 9.4 MG/DL (8.3-10.6); CARBON DIOXIDE LEVEL 28 MMOL/L (20-31); CHLORIDE LEVEL 106 MMOL/L (98-107); CHOLESTEROL LEVEL 122 MG/DL (<200); CHOLESTEROL RISK RATIO 2.36 (<5); CREATININE FOR GFR 0.51 MG/DL (0.55-1.30); FREE T4 1.17 NG/DL (0.89-1.76); GLOMERULAR FILTRATION RATE > 60.0 (>39); GLUCOSE, FASTING 164 MG/DL (74-106); HDL CHOLESTEROL 51.5 MG/DL (>40); LDL CHOLESTEROL 47.5 MG/DL (<100); NON-HDL-C 70.5 MG/DL; POTASSIUM SERUM 3.7 MMOL/L (3.5-5.1); SODIUM LEVEL 141 MMOL/L (136-145); TOTAL PROTEIN 6.8 G/DL (5.7-8.2); TRIGLYCERIDES LEVEL 115 MG/DL (<150)
[2024-06-18 10:20] LABS: THYROID STIMULATING HORMONE 1.801 uIU/ML (0.55-4.78)
== END ==
LOC: M LAB REF 09:31
PROVIDERS: ATTEND Nurse Practitioner Family
DX: G89.4 Chronic pain syndrome (principal); G89.29 Other chronic pain; I10 Essential (primary) hypertension; E11.69 Type 2 diabetes mellitus with other specified complication; E61.1 Iron deficiency; D64.9 Anemia, unspecified; M05.9 Rheumatoid arthritis with rheumatoid factor, unspecified; J84.10 Pulmonary fibrosis, unspecified; M54.2 Cervicalgia

== ENCOUNTER → 2024-10-26 | Outpatient (CLI) | payer MEDICARE, BC | LOC: M WUC 14:15 | PROVIDERS: ATTEND Internal Medicine Pulmonary Disease | DX: J47.9 Bronchiectasis, uncomplicated (principal) ==

== ENCOUNTER → 2024-10-31 | Outpatient (CLI) | payer MEDICARE, BC ==
[2024-10-31 17:35] LABS: BASO # 0.1 10^3/uL (0.0-0.2); BASO % 1.2 % (0.0-1.0); EOS # 0.5 10^3/uL (0.0-0.5); EOS % 7.2 % (0.0-3.0); HEMATOCRIT 38.9 % (36.0-47.0); HEMOGLOBIN 12.1 g/dl (12.0-15.5); LYMPH % 14.2 % (24.0-44.0); MEAN CORPUSCULAR HEMOGLOBIN 27.8 pg (27.0-33.0); MEAN CORPUSCULAR HGB CONC 31.1 g/dl (32.0-36.5); MEAN CORPUSCULAR VOLUME 89.2 fl (80.0-96.0); MONO # 0.7 10^3/uL (0.0-0.8); MONO % 9.7 % (2.0-8.0); NEUTROPHILS # 4.6 10^3/uL (1.5-8.5); NEUTROPHILS % 67.4 % (36.0-66.0); PLATELET COUNT, AUTOMATED 243 10^3/uL (150-450); RED BLOOD COUNT 4.36 10^6/uL (4.00-5.40); WHITE BLOOD COUNT 6.8 10^3/uL (4.0-10.0)
[2024-10-31 18:02] LABS: BLOOD UREA NITROGEN 14 MG/DL (9-23); CARBON DIOXIDE LEVEL 26 MMOL/L (20-31); CHLORIDE LEVEL 103 MMOL/L (98-107); CREATININE FOR GFR 0.45 MG/DL (0.55-1.30); GLOMERULAR FILTRATION RATE > 60.0 (>39); GLUCOSE, FASTING 144 MG/DL (74-106); POTASSIUM SERUM 4.3 MMOL/L (3.5-5.1); SODIUM LEVEL 142 MMOL/L (136-145)
== END ==
LOC: EEVIPCON 13:55 → M WUC 13:55
PROVIDERS: ATTEND Nurse Practitioner Family
DX: A49.02 Methicillin resistant Staphylococcus aureus infection, unspecified site (principal)

== ENCOUNTER → 2025-05-03 | Outpatient (REF) | payer MEDICARE, BC ==
[~2025-05-03] MED LIST changes: +AMIT10TA11 PO; -AMIT10TA7 PO; +MORP-137 PO; -MSIR30TA PO
[2025-05-03 14:57] LABS: BASO # 0.1 10^3/uL (0.0-0.2); BASO % 1.1 % (0.0-1.0); EOS # 0.5 10^3/uL (0.0-0.5); EOS % 6.3 % (0.0-3.0); LYMPH # 1.1 10^3/uL (1.5-5.0); LYMPH % 15.8 % (24.0-44.0); MONO # 0.7 10^3/uL (0.0-0.8); MONO % 9.2 % (2.0-8.0); NEUTROPHILS # 4.8 10^3/uL (1.5-8.5); NEUTROPHILS % 67.5 % (36.0-66.0); PLATELET COUNT, AUTOMATED 229 10^3/uL (150-450)
[2025-05-03 15:26] LABS: ESTIMATED AVERAGE GLUCOSE 151.0 MG/DL (60-110)
[2025-05-03 15:29] LABS: IRON (FE) 52 UG/DL (50-170); PERCENT SATURATION 20.1 % (13.2-45.0)
[2025-05-03 15:39] LABS: ALT/SGPT 15 U/L (7.0-40); AST/SGOT 19 U/L (<34); CALCIUM LEVEL 8.6 MG/DL (8.3-10.6); CARBON DIOXIDE LEVEL 29 MMOL/L (20-31); CHLORIDE LEVEL 103 MMOL/L (98-107); CHOLESTEROL LEVEL 141 MG/DL (<200); CHOLESTEROL RISK RATIO 2.26 (<5); CREATININE FOR GFR 0.59 MG/DL (0.55-1.30); FREE T4 0.95 NG/DL (0.89-1.76); GLOMERULAR FILTRATION RATE > 90.0 (>39); LDL CHOLESTEROL 50.8 MG/DL (<100); NON-HDL-C 78.8 MG/DL; POTASSIUM SERUM 3.8 MMOL/L (3.5-5.1); SODIUM LEVEL 143 MMOL/L (136-145); TOTAL 25(OH) VITAMIN D 37.8 NG/ML (20.0-100.0); TRIGLYCERIDES LEVEL 140 MG/DL (<150)
== END ==
LOC: M LAB REF 14:16
PROVIDERS: ATTEND Nurse Practitioner Family
DX: I10 Essential (primary) hypertension (principal); G89.4 Chronic pain syndrome; G89.29 Other chronic pain; E11.69 Type 2 diabetes mellitus with other specified complication; E61.1 Iron deficiency; D64.9 Anemia, unspecified; M05.9 Rheumatoid arthritis with rheumatoid factor, unspecified; J84.10 Pulmonary fibrosis, unspecified; M54.2 Cervicalgia; A49.02 Methicillin resistant Staphylococcus aureus infection, unspecified site; Z79.899 Other long term (current) drug therapy